=== PATIENT | male | born 1965 | race Caucasian/White ===

== ENCOUNTER 2022-05-02 20:26 | Inpatient (IN) | payer OTHER, SELFPAY ==
[2022-05-02] VITALS (19 sets, daily range): BP systolic 102–128; BP diastolic 50–74; PULSE 85–107; RESP 18–32; TEMP 36.6–38.8; O2SAT 89–95
--- NOTE | 2022-05-02 21:15 | DI.RAD_ITS ---
Exam(s) XR PORTABLE CHEST AP EXAM: XR PORTABLE CHEST AP CLINICAL HISTORY: cough TECHNIQUE: 2D digital imaging was performed of the chest. One image was obtained. An AP view was ob tained. COMPARISON: No exams were available for comparison FINDINGS: MEDIASTINUM: Normal. HEART: Normal. PULMONARY VASCULATURE: Normal. LUNGS: There is a large area of consolidation in the left upper lung zone. Air bronchograms are seen . The findings are most suspicious for pneumonia. PLEURAL SPACE: No pleural effusion or pneumothorax. BONE:Within normal limits for the patient's age. OTHER FINDINGS:Normal. IMPRESSION: Patchy consolidation throughout the left upper lung zone suggestive of pneumonia. Underlying patholo gy cannot be excluded. A chest x-ray following treatment is recommended to document complete resolut ion and to exclude underlying abnormality. DATA REPOSITORY: RADIATION DOSE DELIVERED:
--- NOTE | 2022-05-02 21:18 | W.ED.GENAD ---
Discharge Plan Disposition Patient Disposition: [facility] INPATIENT Condition: Serious Discharge Details Clinical Impression: CAP (community acquired pneumonia), Hypoxia Primary Care Provider: Maxwell Viera ED Provider: Orlin Graves Home Meds and New Rx's Prescriptions: No Action metoprolol tartrate 100 MG tablet 100 mg PO DAILY amlodipine 10 MG tablet 10 mg PO DAILY glimepiride [Amaryl] 4 MG tablet 2 mg PO DAILY metformin 500 MG tablet extended release 24 hr 500 mg PO BID atorvastatin 40 mg Tablet 40 mg PO DAILY azithromycin 250 mg Tablet 250 mg PO DAILY Rx Instructions: start on day 2 of therapy chlorthalidone 25 mg Tablet 25 mg PO DAILY benzonatate 100 mg capsule 100 cap PO TID PRN cefdinir 300 mg Capsule 300 mg PO BID losartan 100 mg Tablet 100 mg PO DAILY Farxiga 5 mg Tablet 5 mg PO DAILY Medical Decision Making 57 yo male with hx of t2dm, hld, htn, comes in with chief complaint of cough since 04/22 that is now productive and also several days of fevers and chills. HAs not had a covid test since symptoms started. He went to [facility] yesterday and had labs and an xrayand was placed on azithromycin, cefdinir and despite this continues to feel unwell so came here. He arrives with room air saturation of 91% and febrile to 38.8, normal BP. He is speaking in full sentences and appears fatigued. He has rhonchi in both lower lobes, no lower extremity swelling or calf tenderness, no abdominal tenderness. His symptoms are concerning for pneumonia vs covid vs influenza, will obtain cbc, cmp, cultures, lactate, procalcitonin and chest xray along with fluvid test. patient's xray on my read shows bilateral infiltrates worse on the left, cmp and fluvid still pending but is vaccinated and boostered so doubt covid as cause of this. Ceftriaxone ordered, is on 2L N[place].Discussed with hospitalist who accepts for admission Differential Diagnosis Differential Diagnosis: pneumonia, covid, influenza Imaging Data Radiologic Study: Attestation: I personally reviewed and interpreted this imaging study as follows: Imaging: X-Ray Radiologist's impression: IMPRESSION: Extensive patchy consolidation throughout the left upper lung zone with an appearance suggesting pneumonia. That said, underlying pathology is not excluded. Posttreatment follow-up is recommended to document resolution Lab Data Lab results reviewed: Yes I reviewed the patient's lab results. HPI General Mode of arrival: ambulatory. Date/Time Provider Initiated Documentation: 05/02/22 20:26. Limitations to Documentation: no limitations. Information obtained by: patient. History of Present Illness 57 year old M presents to the emergency department with the chief complaint of cough, described as moderate, Patient started experiencing this day(s) (10) and it has been constant. No relieving factors improve symptom(s), No exacerbating factors reported . Patient notes fever/chills. Patient did receive the following treatments prior to arrival, none Related Data Home Medications Medication Instructions Recorded Confirmed amlodipine 10 mg tablet 10 mg PO DAILY 05/21/13 05/02/22 glimepiride 4 mg tablet (Amaryl) 2 mg PO DAILY 05/21/13 05/02/22 metformin 500 mg tablet,extended 500 mg PO BID 05/21/13 05/02/22 release 24 hr metoprolol tartrate 100 mg tablet 100 mg PO DAILY 05/21/13 05/02/22 atorvastatin 40 mg tablet 40 mg PO DAILY 05/02/22 05/02/22 azithromycin 250 mg tablet 250 mg PO DAILY 05/02/22 05/02/22 benzonatate 100 mg capsule 100 cap PO TID PRN 05/02/22 05/02/22 cefdinir 300 mg capsule 300 mg PO BID 05/02/22 05/02/22 chlorthalidone 25 mg tablet 25 mg PO DAILY 05/02/22 05/02/22 dapagliflozin 5 mg tablet (Farxiga) 5 mg PO DAILY 05/02/22 05/02/22 losartan 100 mg tablet 100 mg PO DAILY 05/02/22 05/02/22 Allergies Allergy/AdvReac Type Severity Reaction Status Date / Time morphine Allergy Mild itchy Unverified 05/02/22 21:00 General Stated Complaint: RespSymp SATINDER: 3 Review of Systems All systems reviewed & are unremarkable except as noted in HPI and below Constitutional Constitutional: Reports chills and Reports fever(s) ENT Ears, Nose, Mouth, and Throat: Denies change in voice Cardiovascular Cardiovascular: Denies chest pain Respiratory Respiratory: Denies cough Gastrointestinal Gastrointestinal: Denies abdominal pain, Denies nausea and Denies vomiting Genitourinary Genitourinary: Denies dysuria Musculoskeletal Musculoskeletal: Denies joint swelling Integumentary/Breasts Skin/Breast: Denies rash Neurologic Neurologic: Denies localized weakness PFSH All Active Problems (Updated 05/02/22 @ 22:15 by Orlin Graves MD) CAP (community acquired pneumonia) (Acute) Hypoxia (Acute) Social History Smoking/Tobacco Use Status: Never Smoking risk assessment performed?: Yes Alcohol Intake: never Drug use: Never Substance use type: does not use Course Vital Signs Vital signs: Vital Signs Temperature 38.8 C H 05/02/22 20:57 Pulse 107 H 05/02/22 20:57 Respiratory Rate 22 05/02/22 20:57 Blood Pressure 128/74 05/02/22 20:57 Pulse Oximetry 91 L 05/02/22 20:57 Temperature 38.8 C H 05/02/22 20:57 Temperature Source Oral 05/02/22 20:57 Pulse 107 H 05/02/22 20:57 Respiratory Rate 22 05/02/22 20:57 Respiratory Effort Non-Labored 05/02/22 21:05 Blood Pressure 128/74 05/02/22 20:57 Blood Pressure Position Sitting 05/02/22 20:57 Pulse Oximetry 91 L 05/02/22 20:57 Oxygen Delivery Method Room Air 05/02/22 20:57 Oxygen Flow Rate 0 05/02/22 20:57 Pain Level 6 05/02/22 20:57 Lab/Test Results Lab/Test Results: 05/02/22 21:02 Blood Blood Culture - Pending 05/02/22 21:02 Blood Blood Culture - Pending
[2022-05-02] MEDS: Acetaminophen 500 MG TAB 1000 MG PO (21:25)
[2022-05-02] MEDS: Normal Saline 1,000 ML 1000 ML IV (21:30)
[2022-05-02 21:41] LABS: Abs Immature Grans 0.05 10^3/uL (0.0-0.06); Absolute Basophil Count 0.03 10^3/uL (0.0-0.2); Absolute Eosinophil Count 0.05 10^3/uL (0.0-0.7); Absolute Monocyte Count 0.93 10^3/uL (0.1-0.8); Absolute Neutrophil Count 8.09 10^3/uL (1.2-6.7); Basophils % 0.3; Eosinophils % 0.5; HGB 12.4 g/dL (13.5-17.5); Immature Grans % 0.5; Lymphocytes % 3.2; MCH 30.7 pg (27.0-33.0); MCHC 35.4 % (32.0-36.0); MCV 87 fL (80-95); MPV 8.7 fL (8.0-11.0); Monocytes % 9.8; Neutrophils % 85.7; Platelet Count 190 10^3/uL (130-400); RBC 4.04 10^6/uL (4.36-5.78); RDW 13.2 % (11.8-14.1); RDW-SD 42.5 fL; WBC 9.45 10^3/uL (4.4-10.8)
[2022-05-02 21:42] LABS: BE (Venous) 2 mmol/L (-2-3); HCO3 (Venous) 26 mmol/L (23-28); O2 Sat (Venous) 79 %; TCO2 (Venous) 23 mmol/L (24-29); pCO2 (Venous) 39 mmHg (41-51); pH (Venous) 7.43 (7.31-7.41); pO2 (Venous) 42 mmHg
[2022-05-02 21:43] LABS: Lactate 1.2 mmol/L (0.6-1.4)
[2022-05-02 22:21] LABS: COVID-19 PCR Negative (Negative); Influenza A PCR Negative (Negative); Influenza B PCR Negative (Negative); RSV PCR Negative (Negative)
[2022-05-02 22:28] LABS: Source Nasopharynx
--- NOTE | 2022-05-02 22:30 | W.PM.HP.N ---
Date of service: 05/02/22 Time of Service: 22:30 Assessment and Plan Assessment and plan (1) CAP (community acquired pneumonia): Status: Acute Assessment and plan: Extensive left sided pneumonia. Rocephin and doxycycline initiated. IS and acapella. Urine antigens for legionella and strep pneumo sent. Even though most indications are that this is an infectious process, JERILYN level sent to investigate the possibility of sarcoidosis. (2) Hypoxia: Status: Acute Assessment and plan: No known underlying pulmonary processes (asthma, COPD). Nonsmoker. Mildly hypoxic on arrival. Supplemental O2 as needed. (3) Diabetes mellitus type 2, noninsulin dependent: Status: Acute Assessment and plan: Cont home Farxiga and glimepiride. Hold metformin in event he could require IV contrast during the course of this stay. Diabetic diet. Monitor glucose and utilize SS correction insulin dosing if necessary. (4) Essential hypertension: Status: Acute Assessment and plan: Cont amlodipine, chlorthalidone, losartan and metoprolol. Pressures have been low normal to normal since admission. (5) Hyperlipidemia: Status: Acute Assessment and plan: Cont atorvastatin 40mg daily. (6) DVT prophylaxis: Status: Acute Assessment and plan: Enoxaparin. Also encourage ambulation. History of Present Illness History of Present Illness Chief Complaint: Fever and cough Narrative: This is a 57 yo male with a PMH of HTN, DM2, HLD. He presented to the ED with an ongoing cough since 04/22/22. The cough has gradually become productive and he has developed fevers and chills. He presented to [facility] the day before this admission where he had labs and a CXR taken. He was discharged on cefdinir and azithromycin. Upon arrival at [facility] his temperature was 38.8 and RA O2 saturation was 91%. Covid and Fluvid were negative. WBC count normal. CXR showed: Extensive patchy consolidation throughout the left upper lung zone with an appearance suggesting pneumonia. That said, underlying pathology is not excluded. Posttreatment follow-up is recommended to document resolution. Ceftriaxone and oral doxycycline initiated. Other labaratory findings; mild anemia with a Hgb of 12.4. Mildly low Na of 133. Low K of 3.3. Creatinine 1.0. Procalcitonin elevated at 0.2. Review of Systems All systems reviewed & are unremarkable except as noted in HPI and below PFSH All Active Problems (Updated 05/03/22 @ 05:09 by Clarence Morales MD) DVT prophylaxis (Acute) Hyperlipidemia (Acute) Essential hypertension (Acute) Diabetes mellitus type 2, noninsulin dependent (Acute) CAP (community acquired pneumonia) (Acute) Hypoxia (Acute) Social History Smoking/Tobacco Use Status: Never Smoking risk assessment performed?: Yes Alcohol Intake: never Drug use: Never Substance use type: does not use Meds Allergies and Home Medications Allergies Allergy/AdvReac Type Severity Reaction Status Date / Time morphine Allergy Mild itchy Unverified 05/02/22 21:00 Home Medications Medication Instructions Recorded Confirmed Type amlodipine 10 mg tablet 10 mg PO DAILY 05/21/13 05/02/22 History glimepiride 4 mg tablet (Amaryl) 2 mg PO DAILY 05/21/13 05/02/22 History metformin 500 mg tablet,extended 500 mg PO BID 05/21/13 05/02/22 History release 24 hr metoprolol tartrate 100 mg tablet 100 mg PO DAILY 05/21/13 05/02/22 History atorvastatin 40 mg tablet 40 mg PO DAILY 05/02/22 05/02/22 History azithromycin 250 mg tablet 250 mg PO DAILY 05/02/22 05/02/22 History benzonatate 100 mg capsule 100 cap PO TID PRN 05/02/22 05/02/22 History cefdinir 300 mg capsule 300 mg PO BID 05/02/22 05/02/22 History chlorthalidone 25 mg tablet 25 mg PO DAILY 05/02/22 05/02/22 History dapagliflozin 5 mg tablet (Farxiga) 5 mg PO DAILY 05/02/22 05/02/22 History losartan 100 mg tablet 100 mg PO DAILY 05/02/22 05/02/22 History Exam Narrative Exam Narrative: Sitting in chair. Intermittent coughing paroxysms. Const General: cooperative Nutritional Appearance: overweight Orientation: alert and oriented x3 Eyes General: appearance normal, both eyes and all related structures Sclera: sclerae normal Resp Effort & Inspection: normal respiratory effort Auscultation: rhonchi Cardio Rate: regular rate Rhythm: regular rhythm Heart Sounds: S1 normal and S2 normal GI Palpation: soft and nontender Skin General skin exam: no rashes or lesions noted Extrem General: no pedal edema and no calf tenderness Psych Appearance: grossly normal Mental Status: mental status grossly normal Speech and Movement: speech and movement normal Affect: normal affect Results Labs Result diagrams: 05/02/22 21:30 05/02/22 21:30 Labs: Laboratory Results - last 24 hr 05/02/22 05/02/22 05/02/22 21:30 21:30 21:30 WBC 9.45 RBC 4.04 L Hgb 12.4 L Hct 35.0 L MCV 87 MCH 30.7 MCHC 35.4 RDW 13.2 Plt Count 190 MPV 8.7 Immature Gran % 0.5 Neutrophils % 85.7 Lymphocytes % 3.2 Monocytes % 9.8 Eosinophils % 0.5 Basophils % 0.3 Nucleated RBC % 0.0 Absolute Neutrophils 8.09 H Absolute Lymphocytes 0.30 L Absolute Monocytes 0.93 H Absolute Eosinophils 0.05 Absolute Basophils 0.03 VBG pH 7.43 H VBG pCO2 39 L VBG pO2 42 VBG HCO3 26 VBG Total CO2 23 L VBG O2 Saturation 79 VBG Base Excess 2 VBG Lactate 1.2 COVID-19 Source SARS-CoV-2 (PCR) Influenza Type A (PCR) Influenza Type B (PCR) RSV (PCR) 05/02/22 21:35 WBC RBC Hgb Hct MCV MCH MCHC RDW Plt Count MPV Immature Gran % Neutrophils % Lymphocytes % Monocytes % Eosinophils % Basophils % Nucleated RBC % Absolute Neutrophils Absolute Lymphocytes Absolute Monocytes Absolute Eosinophils Absolute Basophils VBG pH VBG pCO2 VBG pO2 VBG HCO3 VBG Total CO2 VBG O2 Saturation VBG Base Excess VBG Lactate COVID-19 Source Nasopharynx SARS-CoV-2 (PCR) Negative Influenza Type A (PCR) Negative Influenza Type B (PCR) Negative RSV (PCR) Negative Last Vital Signs Temp 37.7 C H 05/02/22 22:02 Pulse 95 H 05/02/22 22:02 Resp 18 05/02/22 22:02 BP 106/50 L 05/02/22 22:02 Pulse Ox 95 05/02/22 22:02
--- NOTE | 2022-05-02 22:35 | DI.VRAD_ITS ---
Addendum created by Angel Vasquez MD on 05/02/2022 10:36:10 PM EDT: This case was discussed personally with Orlin Melo at 10:35 PM EDT on 05/02/2022. Initial report created on 05/02/2022 10:33:38 PM EDT: PROCEDURE INFORMATION: Exam: XR Chest Exam date and time: 05/02/2022 9:43 PM Age: 57 years old Clinical indication: Cough TECHNIQUE: Imaging protocol: Radiologic exam of the chest. Views: 1 view. COMPARISON: No relevant prior studies available. FINDINGS: Lungs: There is extensive patchy consolidation throughout the left mid-upper lung zone. Pleural spaces: No pleural effusion or pneumothorax is demonstrated. Heart/Mediastinum: Heart size is normal. Cardiac monitoring leads overlie the exam. Bones/joints: The visualized bony structures appear grossly intact. IMPRESSION: Extensive patchy consolidation throughout the left upper lung zone with an appearance suggesting pneumonia. That said, underlying pathology is not excluded. Posttreatment follow-up is recommended to document resolution. Dictated and Authenticated by: Angel Vasquez MD. Ordering:SIRI Ordaz MD
[2022-05-02] MEDS: cefTRIAXone 2 GM/50 ML BAG IVPB (22:37)
[2022-05-02 22:41] LABS: Procalcitonin 0.2 ng/mL
[2022-05-02 23:11] LABS: ALT 26 U/L (16-63); AST 17 U/L (15-37); Albumin 2.6 g/dL (3.4-5.0); Alkaline Phosphatase 71 U/L (46-116); Anion Gap 11.8 mmol/L (3-11); BUN 25 mg/dL (7-18); Bilirubin, Total 1.5 mg/dL (0.2-1.0); CO2 25.2 mmol/L (21.0-32.0); Calcium 8.9 mg/dL (8.5-10.1); Chloride 96 mmol/L (98-107); Glucose 146 mg/dL (74-106); Magnesium 1.9 mg/dL (1.8-2.4); Potassium 3.3 mmol/L (3.5-5.1); Sodium 133 mmol/L (136-145); Total Protein 6.8 g/dL (6.4-8.2)
[2022-05-03] VITALS (8 sets, daily range): BP systolic 110–130; BP diastolic 69–80; PULSE 94–107; RESP 18–25; TEMP 37.9–39.4; O2SAT 93–97
[2022-05-03] MEDS: Potassium Chloride 20 MEQ TABCR PO ×3 (00:25→19:38)
[2022-05-03] MEDS: guaiFENesin/CODEINE PHOSPHATE 10 ML CUP PO ×3 (01:45→20:42)
[2022-05-03] MEDS: Acetaminophen 325 MG TAB PO ×4 (03:03→19:37)
[2022-05-03] MEDS: Normal Saline Flush 10 ML SYR IVP ×2 (06:05→11:24)
[2022-05-03] MEDS: Doxycycline Hyclate 100 MG CAP PO ×2 (06:05→17:08)
[2022-05-03] MEDS: Glimepiride 2 MG TAB PO (07:47)
[2022-05-03] MEDS: Losartan 50 MG TAB 100 MG PO (07:48)
[2022-05-03] MEDS: Chlorthalidone 25 MG TAB PO (07:48)
[2022-05-03] MEDS: amLODIPine 10 MG TAB PO (07:48)
[2022-05-03] MEDS: Atorvastatin 40 MG TAB PO (07:48)
[2022-05-03] MEDS: Enoxaparin 40 MG/0.4 ML SYR SC (07:49)
[2022-05-03] MEDS: Insulin Aspart 300 UNITS/3 ML PEN SC ×4 (08:25→22:11)
[2022-05-03] MEDS: Metoprolol CR 100 MG TABCR PO (08:34)
[2022-05-03] MEDS: Benzonatate 200 MG CAP PO ×3 (08:48→19:37)
[2022-05-03 08:58] LABS: Abs Immature Grans 0.07 10^3/uL (0.0-0.06); Absolute Basophil Count 0.02 10^3/uL (0.0-0.2); Absolute Lymphocyte Count 0.43 10^3/uL (1.2-3.4); Absolute Monocyte Count 1.22 10^3/uL (0.1-0.8); Absolute Neutrophil Count 8.44 10^3/uL (1.2-6.7); Basophils % 0.2; HGB 9.8 g/dL (13.5-17.5); Immature Grans % 0.7; Lymphocytes % 4.2; MCH 30.1 pg (27.0-33.0); MCHC 33.8 % (32.0-36.0); MCV 89 fL (80-95); Monocytes % 11.9; Platelet Count 204 10^3/uL (130-400); RBC 3.26 10^6/uL (4.36-5.78); RDW 13.3 % (11.8-14.1); RDW-SD 43.7 fL; WBC 10.28 10^3/uL (4.4-10.8)
[2022-05-03 09:09] LABS: BUN 22 mg/dL (7-18); Calcium 8.5 mg/dL (8.5-10.1); Chloride 96 mmol/L (98-107); Glucose 165 mg/dL (74-106); Magnesium 1.9 mg/dL (1.8-2.4); Potassium 3.4 mmol/L (3.5-5.1); Sodium 134 mmol/L (136-145)
[2022-05-03 09:15] LABS: ALT 25 U/L (16-63); AST 19 U/L (15-37); Albumin 2.5 g/dL (3.4-5.0); Alkaline Phosphatase 69 U/L (46-116); Bilirubin, Direct 0.6 mg/dL (0.0-0.2); Bilirubin, Total 1.3 mg/dL (0.2-1.0); Total Protein 6.4 g/dL (6.4-8.2)
[2022-05-03] MEDS: POTASSIUM CHLORIDE 20 MEQ/100 ML BAG 50 MEQ IVPB ×2 (11:24→14:12)
--- NOTE | 2022-05-03 11:59 | W.PM.PROGNOT ---
Date of Service Date of service: 05/03/22 Time of Service: 11:59 Assessment and Plan Assessment and plan (1) Sepsis: Status: Acute Assessment and plan: Due to PNA, present on admission. Blood cultures pending. Still febrile this am. W/ h/o DM, I am concerned we may not be covering pseudomonas - will change abx to doxy + cefepime. Await blood and sputum culture results. Anaplasma can also present with respiratory findings as well as electrolyte and LFT abnormalities - await tick panel. Continue doxycycline. Trend CRP, procalcitonin. (2) CAP (community acquired pneumonia): Status: Acute Assessment and plan: As above. Schedule mucinex. Continue prn guaifenesin + codeine; tessalon. Abx as above. Encourage pulmonary toilet. (3) Hypoxia: Status: Resolved Assessment and plan: Resolved at rest. Would benefit from O2 monitoring when ambulating. (4) Pleuritic chest pain: Status: Acute Assessment and plan: Start prn toradol. Antitussives. (5) Acute anemia: Status: Acute Assessment and plan: Check H/H this afternoon. Check hematest. Hold lovenox. Consider hemolysis. (6) Diabetes mellitus type 2, noninsulin dependent: Status: Chronic Assessment and plan: Continue current therapy (7) Hyperbilirubinemia: Status: Acute Assessment and plan: In setting of acute illness. ?Gilbert. Consider tick illness. (8) Hypokalemia: Status: Acute Assessment and plan: Replete. recheck in am. (9) Hyponatremia: Status: Acute Assessment and plan: Hold diuretics. Recheck in am. (10) DVT prophylaxis: Status: Acute Assessment and plan: Hold enoxaparin due to anemia. Consider SCDs if confirmed to have active bleeding. (11) Discharge planning issues: Status: Acute Assessment and plan: Full code. Continues to require hospitalization. Subjective Subjective Interval history since last seen: Mr Mcarthur states he thinks he is feeling a little bit better today - cough is better. He does have L-sided chest pain with coughing and pain throughout his whole chest on inspiration. He is not short of breath unless coughing. Cough has been productive of yellow sputum. He denies dizziness, nausea. He has not had an appetite. He did not sleep well because of cough. Exam Narrative Exam Narrative: General: Ill appearing middle-aged male who is coughing frequently, on RA, A&Ox3 HEENT: EOMI, MMM Heart: RRR, no m/r/g Lungs: Diminished breath sounds B Abdomen: soft, nontender, nondistended Extremities: no edema BLEs Objective Last Vital Signs Temp 38.3 C H 05/03/22 07:30 Pulse 96 H 05/03/22 07:30 Resp 20 05/03/22 07:30 BP 130/80 05/03/22 07:30 Pulse Ox 97 05/03/22 07:30 Laboratory Results - last 24 hr 05/02/22 05/02/22 05/02/22 21:30 21:30 21:30 WBC 9.45 RBC 4.04 L Hgb 12.4 L Hct 35.0 L MCV 87 MCH 30.7 MCHC 35.4 RDW 13.2 Plt Count 190 MPV 8.7 Immature Gran % 0.5 Neutrophils % 85.7 Lymphocytes % 3.2 Monocytes % 9.8 Eosinophils % 0.5 Basophils % 0.3 Nucleated RBC % 0.0 Absolute Neutrophils 8.09 H Absolute Lymphocytes 0.30 L Absolute Monocytes 0.93 H Absolute Eosinophils 0.05 Absolute Basophils 0.03 VBG pH VBG pCO2 VBG pO2 VBG HCO3 VBG Total CO2 VBG O2 Saturation VBG Base Excess VBG Lactate 1.2 Sodium 133 L Potassium 3.3 L Chloride 96 L Carbon Dioxide 25.2 Anion Gap 11.8 H BUN 25 H Creatinine 1.0 Estimated GFR/1.73 m2 >= 60.00 Glucose 146 H Calcium 8.9 Magnesium 1.9 Total Bilirubin 1.5 H Conjugated Bilirubin AST 17 ALT 26 Alkaline Phosphatase 71 Total Protein 6.8 Albumin 2.6 L Procalcitonin 0.2 COVID-19 Source SARS-CoV-2 (PCR) Influenza Type A (PCR) Influenza Type B (PCR) RSV (PCR) 05/02/22 05/02/22 05/03/22 21:30 21:35 08:18 WBC RBC Hgb Hct MCV MCH MCHC RDW Plt Count MPV Immature Gran % Neutrophils % Lymphocytes % Monocytes % Eosinophils % Basophils % Nucleated RBC % Absolute Neutrophils Absolute Lymphocytes Absolute Monocytes Absolute Eosinophils Absolute Basophils VBG pH 7.43 H VBG pCO2 39 L VBG pO2 42 VBG HCO3 26 VBG Total CO2 23 L VBG O2 Saturation 79 VBG Base Excess 2 VBG Lactate Sodium 134 L Potassium 3.4 L Chloride 96 L Carbon Dioxide 28.0 Anion Gap 10.0 BUN 22 H Creatinine 1.0 Estimated GFR/1.73 m2 >= 60.00 Glucose 165 H Calcium 8.5 Magnesium 1.9 Total Bilirubin Conjugated Bilirubin AST ALT Alkaline Phosphatase Total Protein Albumin Procalcitonin COVID-19 Source Nasopharynx SARS-CoV-2 (PCR) Negative Influenza Type A (PCR) Negative Influenza Type B (PCR) Negative RSV (PCR) Negative 05/03/22 05/03/22 08:18 08:18 WBC 10.28 RBC 3.26 L Hgb 9.8 L D Hct 29.0 L MCV 89 MCH 30.1 MCHC 33.8 RDW 13.3 Plt Count 204 MPV 9.0 Immature Gran % 0.7 Neutrophils % 82.0 Lymphocytes % 4.2 Monocytes % 11.9 Eosinophils % 1.0 Basophils % 0.2 Nucleated RBC % 0.0 Absolute Neutrophils 8.44 H Absolute Lymphocytes 0.43 L Absolute Monocytes 1.22 H Absolute Eosinophils 0.10 Absolute Basophils 0.02 VBG pH VBG pCO2 VBG pO2 VBG HCO3 VBG Total CO2 VBG O2 Saturation VBG Base Excess VBG Lactate Sodium Potassium Chloride Carbon Dioxide Anion Gap BUN Creatinine Estimated GFR/1.73 m2 Glucose Calcium Magnesium Total Bilirubin 1.3 H Conjugated Bilirubin 0.6 H AST 19 ALT 25 Alkaline Phosphatase 69 Total Protein 6.4 Albumin 2.5 L Procalcitonin COVID-19 Source SARS-CoV-2 (PCR) Influenza Type A (PCR) Influenza Type B (PCR) RSV (PCR) PAWSS Have you Been Recently Intoxicated or Drunk Within the Last 30 days?: No Have you Ever Experienced Previous Episodes of Alcohol Withdrawal?: No Have you ever Experienced Withdrawal Seizures?: No Have you ever Experienced Delirium Tremens(DT)s?: No Have you ever undergone Alcohol Rehabilitation Treatment (i.e, inpt ot outpatient treatment programs)?: No Have you ever Experienced Blackouts?: No Have you ever Combined Alcohol with other Downers within the last 90 days?: No Have you ever Combined Alcohol with any other Substance of Abuse during the last 90 days?: No Positive Blood Alcohol level on Presentation? [PCS.BAL]: No Evidence of Increased Autonomic Activity (i.e. HR>120, tremor, sweating, agitation, nausea)?: No Result: 0
--- NOTE | 2022-05-03 12:49 | INITIAL_ITS ---
- If Service Date Differs Date of service: 05/03/22 Time of Service: 12:49 Care Management Initial Assess REASON FOR HOSPITALIZATION:: Pneumonia PAST MEDICAL HISTORY/PAST SURGICAL HISTORY:: DVT prophylaxis (Acute). Hyperlipidemia (Acute). Essential hypertension (Acute). Diabetes mellitus type 2, noninsulin dependent (Acute). CAP (community acquired pneumonia) (Acute). Hypoxia (Acute) PREVIOUS FUNCTIONAL STATUS/SOCIAL/FAMILY SUPPORTS:: Resides in [place] with , Odalis, son Cristiano resides locally as well. Independent at baseline in community. CURRENT FUNCTIONAL STATUS:: Deidre remains inpatient at this time, CM continues to follow. ADVANCE DIRECTIVES:: On file; Odalis as agent. Has patient been provided with info about the portal/API?: Yes Did the patient sign up for the portal?: No CODE STATUS:: Full Code INSURANCE COVERAGE / FINANCIAL ISSUES:: [employer] CURRENT HOME/COMMUNITY SERVICES/EQUIPMENT:: [employer] PRIMARY CARE PHYSICIAN:: Maxwell Viera POTENTIAL DISCHARGE NEEDS:: Follow up appointments. PATIENT/FAMILY EDUCATION NEEDS:: Review discharge instructions, discuss Ask Me Three. ANTICIPATED BARRIERS TO DISCHARGE:: None identified. TRANSPORTATION:: Via private vehicle with . PLAN:: Deidre will return home when ready per MD. No additional services anticipated at this time. He will follow up with his PCP and plan of care as prescribed.
[2022-05-03 13:16] LABS: Bilirubin Negative (Negative); Blood Negative (Negative); Clarity Clear (Clear); Glucose 500 mg/dL (Negative); Ketones Trace mg/dL (Negative); Leukocyte Esterase Negative (Negative); Nitrite Negative (Negative); Specific Gravity 1.015 (1.005-1.025); pH 5.5 (5-8)
[2022-05-03 14:10] LABS: HCT 35.1 % (40.0-50.0)
[2022-05-03] MEDS: CEFEPIME 2 GM in Normal Saline 100 ML IVPB ×2 (15:53→22:04)
--- NOTE | 2022-05-03 16:37 | CHAPLAIN ---
Deidre was sitting up in bed, on his phone, when I visited. 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 Deidre said his suggested that he got sick because he's been wearing himself out. He acknowledged she might be right.
[2022-05-03] MEDS: guaiFENesin 600 MG TABCR PO (19:37)
[2022-05-03 20:09] LABS: Legionella Ag Detection Urine Negative (Negative)
[2022-05-03] MEDS: Ketorolac 15 MG/ML VIAL IVP (20:43)
[2022-05-04] VITALS (21 sets, daily range): BP systolic 99–146; BP diastolic 54–81; PULSE 92–120; RESP 2–26; TEMP 37.1–39.5; O2SAT 2–98
--- NOTE | 2022-05-04 | DI.CT_ITS ---
Exam(s) CT CHEST WO EXAM: CT CHEST WO CLINICAL HISTORY: pneumonia, persistent fever. TECHNIQUE: Imaging protocol: Axial computed tomography images were obtained and coronal and sagittal reformatted images were created and reviewed. COMPARISON: CR,XR XR PORTABLE CHEST AP from 05/02/2022 FINDINGS: Tracheobronchial tree: Patent where visualized. Pulmonary parenchyma: Multiple pulmonary nodules are present in both lungs. The largest on the right measures 3 x 2.3 cm. The largest discrete nodule on the left is seen in the lower lobe and measures 1.4 x 1.9 cm. There is confluent opacity in the left upper lobe with air bronchograms. A superimpo sed pneumonia should be considered. An underlying neoplastic process is suspected. No architectural distortion. Mediastinum and Ema: Enlarged lymph nodes are seen in the mediastinum. Some of the lymph loads are calcified suggesting prior granulomatous disease. The largest lymph node measures 2.0 x 1.9 cm. The esophagus is unremarkable. Thyroid gland: Unremarkable. Pleura: There is a small left pleural effusion. No right pleural effusion or pneumothorax is present . Heart: Mildly enlarged heart. Coronary artery calcifications are present. No pericardial effusion. Aorta: Thoracic aorta non-dilated. Mild atherosclerosis. Upper abdomen: Splenomegaly. Lymph nodes: No significant axillary or supraclavicular adenopathy. Soft tissues: Unremarkable. Bones:Within normal limits for the patient's age. There are old healed bilateral rib fractures. No suspicious lytic or sclerotic lesions are present. There is an old T12 compression deformity. IMPRESSION: 1. Multiple noncalcified pulmonary nodules. Large opacity involving the left upper lobe with air bro nchograms. With pulmonary nodules, metastatic disease to the lungs is of primary concern. The left upper lobe opacity may reflect a superimposed pneumonia. A mass or more pulmonary nodules in the lef t upper lobe cannot be excluded underlying the pneumonia. 2. Left pleural effusion. 3. Mediastinal adenopathy which may be reactive or metastatic. 4. Mild cardiomegaly. 5. Splenomegaly. RADIATION DOSE DELIVERED: 706.88mGy.cm Total DLP 706.88mGy.cm Total DLP DATA REPOSITORY: All CT scans at this facility are submitted to the National Radiology Data Registry (NRDR) Dose Index Registry (DIR) with the [employer] ([employer]). RADIATION OPTIMIZATION: All CT scans at this facility use at least one of these dose optimization te chniques: automated exposure control; mA and/or kV adjustment per patient size (includes targeted exa ms where dose is matched to clinical indication); or iterative reconstruction.
[2022-05-04] MEDS: guaiFENesin/CODEINE PHOSPHATE 10 ML CUP PO ×3 (03:10→21:31)
[2022-05-04] MEDS: ACETAMINOPHEN 1,000 MG/100 ML BTL 400 MG IVPB ×3 (03:11→17:57)
[2022-05-04] MEDS: Normal Saline Flush 10 ML SYR IVP ×6 (03:15→17:57)
[2022-05-04] MEDS: CEFEPIME 2 GM in Normal Saline 100 ML IVPB ×3 (06:34→22:43)
[2022-05-04] MEDS: Doxycycline Hyclate 100 MG CAP PO ×2 (06:35→18:12)
[2022-05-04 07:02] LABS: Abs Immature Grans 0.07 10^3/uL (0.0-0.06); Absolute Basophil Count 0.04 10^3/uL (0.0-0.2); Absolute Lymphocyte Count 0.32 10^3/uL (1.2-3.4); Absolute Neutrophil Count 7.61 10^3/uL (1.2-6.7); Basophils % 0.4; Eosinophils % 1.1; HCT 32.5 % (40.0-50.0); HGB 11.3 g/dL (13.5-17.5); Immature Grans % 0.7; Lymphocytes % 3.4; MCH 30.4 pg (27.0-33.0); MCHC 34.8 % (32.0-36.0); MCV 87 fL (80-95); MPV 9.2 fL (8.0-11.0); Monocytes % 13.8; Neutrophils % 80.6; Platelet Count 203 10^3/uL (130-400); RBC 3.72 10^6/uL (4.36-5.78); RDW 13.4 % (11.8-14.1); RDW-SD 43.6 fL; WBC 9.44 10^3/uL (4.4-10.8)
[2022-05-04 07:20] LABS: ALT 25 U/L (16-63); AST 19 U/L (15-37); Albumin 2.2 g/dL (3.4-5.0); Alkaline Phosphatase 67 U/L (46-116); Anion Gap 10.5 mmol/L (3-11); BUN 25 mg/dL (7-18); Bilirubin, Direct 0.6 mg/dL (0.0-0.2); Bilirubin, Total 1.1 mg/dL (0.2-1.0); CO2 25.5 mmol/L (21.0-32.0); CREATININE 0.9 mg/dL (0.70-1.30); Calcium 8.5 mg/dL (8.5-10.1); Chloride 99 mmol/L (98-107); Glucose 177 mg/dL (74-106); Magnesium 1.9 mg/dL (1.8-2.4); Potassium 3.6 mmol/L (3.5-5.1); Sodium 135 mmol/L (136-145); Total Protein 6.2 g/dL (6.4-8.2)
[2022-05-04] MEDS: Ketorolac 15 MG/ML VIAL IVP (07:29)
[2022-05-04] MEDS: Potassium Chloride 20 MEQ TABCR PO (07:45)
[2022-05-04] MEDS: Glimepiride 2 MG TAB PO (07:45)
[2022-05-04] MEDS: amLODIPine 10 MG TAB PO (07:45)
[2022-05-04] MEDS: guaiFENesin 600 MG TABCR PO ×2 (07:45→21:31)
[2022-05-04] MEDS: Benzonatate 200 MG CAP PO ×3 (07:45→21:31)
[2022-05-04] MEDS: Metoprolol CR 100 MG TABCR PO (07:45)
[2022-05-04] MEDS: Atorvastatin 40 MG TAB PO (07:45)
[2022-05-04] MEDS: Losartan 50 MG TAB 100 MG PO (07:46)
[2022-05-04] MEDS: Insulin Aspart 300 UNITS/3 ML PEN SC ×4 (07:46→22:34)
[2022-05-04 08:14] LABS: Lab Add On Test DONE
[2022-05-04 08:43] LABS: C-Reactive Protein > 25.00 mg/dL (0.0-0.3)
--- NOTE | 2022-05-04 11:42 | PUCON_ITS ---
General Date Of Service Date of service: 05/04/22 Time of Service: 11:45 Reason for Consult: Non-resolving pneumonia Assessment and Plan Assessment and plan (1) Sepsis: Status: Acute (2) CAP (community acquired pneumonia): Status: Acute (3) Hypoxia: Status: Acute Assessment and plan: This is a 57 yo otherwise healthy man admitted for a multilobar pneumonia. He has been on IV antibiotics for 3 days without significant improvement. He has had a sputum culture but this returned as normal bryn. The pneumonia is si gnificantly and most severe in the [place], but is multilobar. He has a small effusion on the left, but it is not large enough to consider tapping. He is on brought spectrum antibiotics but would add linezolid to cover potential MRSA until his MRSA nares returns. I will screen for fungal infections with a Fungitell, however clinically and by radiology, this appears to be bacterial. He does have significant lymphopenia and has not mounted an immune response to this pneumonia in way of a white count, so I would test him for HIV. Walking and Acapella will help him clear more mucus. If he is still not well by Saturday, we will discuss bronchoscopy to get a definitive answer and to try and isolate a bu g. His chest CT read mentions malignancy, however as he is a life long non smoker his lung cancer risk is very low. My impression of his film is that this is a pneumonia. He should have a 3 month follow up scan completed regardless, to ensure resolution of all of the infiltrates. Multilobar Pneumonia - continue cefepime and doxy - start linezolid - repeat sputum culture - recommend testing for HIV - will add a Fungitell - f/u MRSA nares - f/u strep pneumo urine antigen - blood cultures - NGTD - agree with Acapella and IS - agree with prn albuterol nebs History of Present Illness Narrative: This is a 57 yo man who is a non-smoker, non-alcoholic who has been feeling ill for a couple weeks. He was admitted a few days ago found to have a pneumonia. He has been on antibiotics, initially ceftriaxone and doxy. This did not improve his symptoms or signs and so his antibiotics were broadened to cefepime and doxy. He is very exhausted and still does not feel as though he is improving. He has never had a pneumonia this bad previously, but has had pneumonia once previously. He continues to have fevers and yellow copious secretions. I was consulted for the unresolving pneumonia. He tells me he is a non smoker and non alcoholic. He does have some exposure to concrete dust, but nothing else he can think of. He has some pain related to coughing. His cough is continuous and severe. He is exhausted from not sleeping well in days. He continues to cough out copious sputum. Review of Systems All systems reviewed & are unremarkable except as noted in HPI and below PFSH All Active Problems (Updated 05/04/22 @ 12:44 by Paris Flores MD) Hyponatremia (Acute) Hyperbilirubinemia (Acute) Acute anemia (Acute) Discharge planning issues (Acute) Pleuritic chest pain (Acute) Sepsis (Acute) DVT prophylaxis (Acute) Hyperlipidemia (Acute) Essential hypertension (Acute) Diabetes mellitus type 2, noninsulin dependent (Chronic) CAP (community acquired pneumonia) (Acute) Hypoxia (Acute) Social History Smoking/Tobacco Use Status: Never Smoking risk assessment performed?: Yes Alcohol Intake: never Drug use: Never Substance use type: does not use Visit Medication and Allergies Active Medications Generic Name Dose Route Start Last Admin Trade Name Freq PRN Reason Stop Dose Admin Amlodipine Besylate 10 mg 05/03/22 08:30 05/04/22 07:45 Amlodipine 10 Mg Tab PO 10 mg DAILY RAJENDRA Administration Atorvastatin Calcium 40 mg 05/03/22 08:30 05/04/22 07:45 Atorvastatin 40 Mg Tab PO 40 mg DAILY RAJENDRA Administration Benzonatate 200 mg 05/03/22 14:00 05/04/22 07:45 Benzonatate 200 Mg Cap PO 200 mg TID RAJENDRA Administration Chlorthalidone 25 mg 05/03/22 08:30 05/03/22 07:48 Chlorthalidone 25 Mg Tab PO 25 mg DAILY RAJENDRA Administration Dextrose 0 gm 05/02/22 22:26 Glucose 40% Oral Solution 15 Gm/37.5 Gm Tube PO DIRECTED PRN Dextrose/Water 0 gm 05/02/22 22:26 Dextrose 50%-Water 25 Gm/50 Ml Syr IVP DIRECTED PRN Dimethicone/Zinc Oxide 0 gm 05/02/22 22:19 Brady Protect Cream 142 Gm Tube TP PRN PRN Doxycycline Hyclate 100 mg 05/03/22 06:00 05/04/22 06:35 Doxycycline Hyclate 100 Mg Cap PO 100 mg Q12H RAJENDRA Administration Enoxaparin Sodium 40 mg 05/03/22 08:30 05/03/22 07:49 Enoxaparin 40 Mg/0.4 Ml Syr SC 40 mg Q24H RAJENDRA Administration Glimepiride 2 mg 05/03/22 08:00 05/04/22 07:45 Glimepiride 2 Mg Tab PO 2 mg DAILY@0800 RAJENDRA Administration Guaifenesin 600 mg 05/03/22 20:00 05/04/22 07:45 Guaifenesin 600 Mg Tabcr PO 600 mg BID RAJENDRA Administration Guaifenesin/Codeine Phosphate 10 ml 05/03/22 01:36 05/04/22 03:10 Guaifenesin/Codeine Phosphate 10 Ml Cup PO 10 ml Q4H PRN PRN Administration Cefepime HCl 2 gm/ Sodium 100 mls @ 200 mls/hr 05/03/22 14:00 05/04/22 08:09 Chloride IVPB Infused Q8H RAJENDRA Infusion Acetaminophen 1,000 mg in 100 mls @ 400 mls/hr 05/03/22 22:59 05/04/22 11:05 Ofirmev IVPB 400 mls/hr Q6H PRN PRN Administration IV Miscellaneous Supplies 1 each 05/02/22 21:15 Iv Access IV DIRECTED [facility] Insulin Aspart 0 units 05/03/22 12:00 05/04/22 07:46 Insulin Aspart 300 Units/3 Ml Pen SC 3 units 0800,1200,1700,2200 [facility] Administration Protocol Ketorolac Tromethamine 15 mg 05/03/22 11:58 05/04/22 07:29 Ketorolac 15 Mg/Ml Vial IVP 05/08/22 11:57 15 mg Q6H PRN PRN Administration Losartan Potassium 100 mg 05/03/22 08:30 05/04/22 07:46 Losartan 50 Mg Tab PO 100 mg DAILY RAJENDRA Administration Metoprolol Succinate 100 mg 05/03/22 08:30 05/04/22 07:45 Metoprolol Cr 100 Mg Tabcr PO 100 mg DAILY RAJENDRA Administration Pt's Own 1 each 05/03/22 08:30 05/04/22 09:23 Dapagliflozin ( PO 1 each Farxiga) 5mg Tablet DAILY RAJENDRA Administration Polyethylene Glycol 17 gm 05/02/22 22:19 Polyethylene Glycol 3350 17 Gm Packet PO DAILY PRN PRN Constipation Sodium Chloride 0 ml 05/02/22 21:02 05/04/22 11:06 Normal Saline Flush 10 Ml Syr IVP 10 ml PRN PRN Administration Allergies morphine Allergy (Mild, Unverified 05/02/22 21:00) itchy Exam Narrative Exam Narrative: Gen: NAD, normal respiratory effort, well-nourished HENT: PERRL Chest: No respiratory distress, normal appearance of chest, clear to auscultation bilaterally, left sided wheeze and crackles, normal inspiratory effort Heart: regular rate and rhythym, no murmurs, rubs or gallops Abdomen: Non-distended, soft, non tender Extremities: No clubbing, edema, cyanosis, rashes Neuro: AAOx3 , non focal Psych: cooperative, appropriate mental affect Results Last Vital Signs Temp 38.0 C H 05/04/22 11:09 Pulse 107 H 05/04/22 07:24 Resp 18 05/04/22 07:24 BP 146/81 H 05/04/22 07:24 Pulse Ox 94 05/04/22 07:24 Labs Result diagrams: 05/04/22 06:08 05/04/22 06:08 Labs: Laboratory Results - last 24 hr 05/03/22 05/03/22 05/03/22 09:00 09:00 14:05 WBC RBC Hgb 12.0 L D Hct 35.1 L MCV MCH MCHC RDW Plt Count MPV Immature Gran % Neutrophils % Lymphocytes % Monocytes % Eosinophils % Basophils % Nucleated RBC % Absolute Neutrophils Absolute Lymphocytes Absolute Monocytes Absolute Eosinophils Absolute Basophils Sodium Potassium Chloride Carbon Dioxide Anion Gap BUN Creatinine Estimated GFR/1.73 m2 Glucose Calcium Magnesium Total Bilirubin Conjugated Bilirubin AST ALT Alkaline Phosphatase C-Reactive Protein Total Protein Albumin Urine Color Yellow Urine Clarity Clear Urine pH 5.5 Ur Specific [place] 1.015 Urine Protein Negative Urine Ketones Trace H Urine Blood Negative Urine Nitrite Negative Urine Bilirubin Negative Urine Urobilinogen 2.0 H Ur Leukocyte Esterase Negative Urine Glucose 500 H Urine Legionella Ag Negative Add-On Test Request 05/04/22 05/04/22 05/04/22 06:08 06:08 06:08 WBC 9.44 RBC 3.72 L Hgb 11.3 L Hct 32.5 L MCV 87 MCH 30.4 MCHC 34.8 RDW 13.4 Plt Count 203 MPV 9.2 Immature Gran % 0.7 Neutrophils % 80.6 Lymphocytes % 3.4 Monocytes % 13.8 Eosinophils % 1.1 Basophils % 0.4 Nucleated RBC % 0.0 Absolute Neutrophils 7.61 H Absolute Lymphocytes 0.32 L Absolute Monocytes 1.30 H Absolute Eosinophils 0.10 Absolute Basophils 0.04 Sodium 135 L Potassium 3.6 Chloride 99 Carbon Dioxide 25.5 Anion Gap 10.5 BUN 25 H Creatinine 0.9 Estimated GFR/1.73 m2 >= 60.00 Glucose 177 H Calcium 8.5 Magnesium 1.9 Total Bilirubin 1.1 H Conjugated Bilirubin 0.6 H AST 19 ALT 25 Alkaline Phosphatase 67 C-Reactive Protein Total Protein 6.2 L Albumin 2.2 L Urine Color Urine Clarity Urine pH Ur Specific [place] Urine Protein Urine Ketones Urine Blood Urine Nitrite Urine Bilirubin Urine Urobilinogen Ur Leukocyte Esterase Urine Glucose Urine Legionella Ag Add-On Test Request DONE 05/04/22 06:08 WBC RBC Hgb Hct MCV MCH MCHC RDW Plt Count MPV Immature Gran % Neutrophils % Lymphocytes % Monocytes % Eosinophils % Basophils % Nucleated RBC % Absolute Neutrophils Absolute Lymphocytes Absolute Monocytes Absolute Eosinophils Absolute Basophils Sodium Potassium Chloride Carbon Dioxide Anion Gap BUN Creatinine Estimated GFR/1.73 m2 Glucose Calcium Magnesium Total Bilirubin Conjugated Bilirubin AST ALT Alkaline Phosphatase C-Reactive Protein > 25.00 H Total Protein Albumin Urine Color Urine Clarity Urine pH Ur Specific [place] Urine Protein Urine Ketones Urine Blood Urine Nitrite Urine Bilirubin Urine Urobilinogen Ur Leukocyte Esterase Urine Glucose Urine Legionella Ag Add-On Test Request
[2022-05-04] MEDS: Lactated Ringers 1,000 ML 1000 ML IV (12:18)
[2022-05-04] MEDS: Albuterol 2.5 MG/3 ML INH SOLN VIAL UPD ×3 (12:30→22:44)
--- NOTE | 2022-05-04 12:32 | W.PM.PROGNOT ---
Date of Service Date of service: 05/04/22 Time of Service: 12:32 Assessment and Plan Assessment and plan (1) Sepsis: Status: Acute Assessment and plan: Due to PNA, present on admission. I discussed the CT findings with Dr Pinto, who is now consulted. She feels that malignancy is less likely and this is all due to PNA at this time. Blood cultures negative to date; will repeat them as he is persistently febrile. Continue doxycycline/cefepime. Consider adding MRSA coverage. Will check MRSA nares. Await sputum culture results (normal bryn so far). Await urine strep and legionella. Anaplasma can also present with respiratory findings as well as electrolyte and LFT abnormalities - await tick panel. Continue doxycycline. Trend CRP, procalcitonin. (2) CAP (community acquired pneumonia): Status: Acute Assessment and plan: As above. Now with hypoxia, requiring 2L of O2 by NC. Add albuterol nebs. Abx as above. Encourage pulmonary toilet. (3) Hypoxia: Status: Acute Assessment and plan: Continue to try to wean off of O2. Target O2 sat >90%. (4) Pleuritic chest pain: Status: Acute Assessment and plan: Continue toradol prn as well as tylenol. Antitussives. Add flexeril and lidocaine patches for the likely trapezius spasm which is contributing. (5) Acute anemia: Status: Acute Assessment and plan: Yesterday's am H/H was an error. h/H is stable. Reinstate lovenox sc. (6) Diabetes mellitus type 2, noninsulin dependent: Status: Chronic Assessment and plan: Continue current therapy (7) Hyperbilirubinemia: Status: Acute Assessment and plan: In setting of acute illness. ?Gilbert's Consider tick illness. (8) Hypokalemia: Status: Resolved Assessment and plan: Recheck in am. (9) Hyponatremia: Status: Acute Assessment and plan: Better. Continue to hold diuretics. Recheck in am. (10) DVT prophylaxis: Status: Acute Assessment and plan: Enoxaparin SC. (11) Discharge planning issues: Status: Acute Assessment and plan: Full code. Continues to require hospitalization. Subjective Subjective Interval history since last seen: Mr Mcarthur states he has been getting thoughts in his head like what if this does not get better. He does not feel better. He has been febrile. He continues to have a frequent cough, cannot stop coughing, with yellow sputum. Reports L shoulder and neck pain since yesterday, thinks this is from coughing. [place] a little dizzy earlier today. Denies CP, not SOB talking to me on 2L of O2 (O2 sat 96%). No nausea. Hungry and eating lunch - requested that breathing treatment wait until after lunch. Exam Narrative Exam Narrative: General: Ill appearing middle-aged male, tearful, diaphoretic, warm to touch, coughing frequently, on 2L of O2 by NC, very mildly tachypneic but this calms down when he is no longer crying, A&Ox3 HEENT: EOMI, MMM Heart: RRR, no m/r/g Lungs: expiratory wheezing L>R. Abdomen: soft, nontender, nondistended Extremities: no edema BLEs Objective Last Vital Signs Temp 38.7 C H 05/04/22 11:45 Pulse 104 H 05/04/22 12:19 Resp 22 05/04/22 12:19 BP 99/54 L 05/04/22 12:19 Pulse Ox 91 L 05/04/22 11:45 Laboratory Results - last 24 hr 05/03/22 05/03/22 05/03/22 09:00 09:00 14:05 WBC RBC Hgb 12.0 L D Hct 35.1 L MCV MCH MCHC RDW Plt Count MPV Immature Gran % Neutrophils % Lymphocytes % Monocytes % Eosinophils % Basophils % Nucleated RBC % Absolute Neutrophils Absolute Lymphocytes Absolute Monocytes Absolute Eosinophils Absolute Basophils Sodium Potassium Chloride Carbon Dioxide Anion Gap BUN Creatinine Estimated GFR/1.73 m2 Glucose Calcium Magnesium Total Bilirubin Conjugated Bilirubin AST ALT Alkaline Phosphatase C-Reactive Protein Total Protein Albumin Urine Color Yellow Urine Clarity Clear Urine pH 5.5 Ur Specific [place] 1.015 Urine Protein Negative Urine Ketones Trace H Urine Blood Negative Urine Nitrite Negative Urine Bilirubin Negative Urine Urobilinogen 2.0 H Ur Leukocyte Esterase Negative Urine Glucose 500 H Urine Legionella Ag Negative Add-On Test Request 05/04/22 05/04/22 05/04/22 06:08 06:08 06:08 WBC 9.44 RBC 3.72 L Hgb 11.3 L Hct 32.5 L MCV 87 MCH 30.4 MCHC 34.8 RDW 13.4 Plt Count 203 MPV 9.2 Immature Gran % 0.7 Neutrophils % 80.6 Lymphocytes % 3.4 Monocytes % 13.8 Eosinophils % 1.1 Basophils % 0.4 Nucleated RBC % 0.0 Absolute Neutrophils 7.61 H Absolute Lymphocytes 0.32 L Absolute Monocytes 1.30 H Absolute Eosinophils 0.10 Absolute Basophils 0.04 Sodium 135 L Potassium 3.6 Chloride 99 Carbon Dioxide 25.5 Anion Gap 10.5 BUN 25 H Creatinine 0.9 Estimated GFR/1.73 m2 >= 60.00 Glucose 177 H Calcium 8.5 Magnesium 1.9 Total Bilirubin 1.1 H Conjugated Bilirubin 0.6 H AST 19 ALT 25 Alkaline Phosphatase 67 C-Reactive Protein Total Protein 6.2 L Albumin 2.2 L Urine Color Urine Clarity Urine pH Ur Specific [place] Urine Protein Urine Ketones Urine Blood Urine Nitrite Urine Bilirubin Urine Urobilinogen Ur Leukocyte Esterase Urine Glucose Urine Legionella Ag Add-On Test Request DONE 05/04/22 06:08 WBC RBC Hgb Hct MCV MCH MCHC RDW Plt Count MPV Immature Gran % Neutrophils % Lymphocytes % Monocytes % Eosinophils % Basophils % Nucleated RBC % Absolute Neutrophils Absolute Lymphocytes Absolute Monocytes Absolute Eosinophils Absolute Basophils Sodium Potassium Chloride Carbon Dioxide Anion Gap BUN Creatinine Estimated GFR/1.73 m2 Glucose Calcium Magnesium Total Bilirubin Conjugated Bilirubin AST ALT Alkaline Phosphatase C-Reactive Protein > 25.00 H Total Protein Albumin Urine Color Urine Clarity Urine pH Ur Specific [place] Urine Protein Urine Ketones Urine Blood Urine Nitrite Urine Bilirubin Urine Urobilinogen Ur Leukocyte Esterase Urine Glucose Urine Legionella Ag Add-On Test Request Objective Narrative Objective Narrative: CT chest w/o contrast: 1. Multiple noncalcified pulmonary nodules.? Large opacity involving the left upper lobe with air bronchograms.? With pulmonary nodules, metastatic disease to the lungs is of primary concern.? The left upper lobe opacity may reflect a superimposed pneumonia.? A mass or more pulmonary nodules in the left upper lobe cannot be excluded underlying the pneumonia. 2. Left pleural effusion. 3. Mediastinal adenopathy which may be reactive or metastatic. 4. Mild cardiomegaly. 5. Splenomegaly.? PAWSS Have you Been Recently Intoxicated or Drunk Within the Last 30 days?: No Have you Ever Experienced Previous Episodes of Alcohol Withdrawal?: No Have you ever Experienced Withdrawal Seizures?: No Have you ever Experienced Delirium Tremens(DT)s?: No Have you ever undergone Alcohol Rehabilitation Treatment (i.e, inpt ot outpatient treatment programs)?: No Have you ever Experienced Blackouts?: No Have you ever Combined Alcohol with other Downers within the last 90 days?: No Have you ever Combined Alcohol with any other Substance of Abuse during the last 90 days?: No Positive Blood Alcohol level on Presentation? [PCS.BAL]: No Evidence of Increased Autonomic Activity (i.e. HR>120, tremor, sweating, agitation, nausea)?: No Result: 0
[2022-05-04] MEDS: Cyclobenzaprine 10 MG TAB PO (12:42)
[2022-05-04] MEDS: Ketorolac 30 MG/ML VIAL IVP ×2 (12:56→21:32)
[2022-05-04 13:11] LABS: Lab Add On Test DONE
[2022-05-04] MEDS: Lidocaine 5% Patch 1 PATCH TP (13:53)
[2022-05-04 14:21] LABS: Lyme Ab w Rflx to Lyme Confirm Negative (Negative)
--- NOTE | 2022-05-04 15:32 | PDOC.CMPRO ---
- If Service Date Differs Date of service: 05/04/22 Time of Service: 15:32 Care Management Progress Note S/O: Deidre remains inpatient, he does not feel he is improving and is awaiting further guidance from MD when ROSSY meets with him. [facility] is denying inpatient status; CM entered indicia with MD input and faxed to [facility] to advocate for inpatient status. Awaiting pulmonology consult to inform treatment planning needs. CM continues to follow. A: 57 year old male admitted to [facility] 05/02/22 for Pneumonia. P: Deidre will return home when ready per MD. No additional services anticipated at this time. He will follow up with his PCP and plan of care as prescribed.
[2022-05-04 16:35] LABS: Angiotensin Converting Enzyme 21 U/L (16 - 85)
[2022-05-04] MEDS: Baclofen 10 MG TAB PO (17:22)
[2022-05-04] MEDS: LINEZOLID 600 MG/300 ML BAG 300 MG IVPB (18:12)
[2022-05-04] MEDS: LORazepam 0.5 MG TAB PO (22:44)
[2022-05-05] VITALS (19 sets, daily range): BP systolic 114–142; BP diastolic 62–88; PULSE 66–120; RESP 2–26; TEMP 37.4–39.5; O2SAT 91–96
[2022-05-05] MEDS: Albuterol 2.5 MG/3 ML INH SOLN VIAL UPD (01:39)
[2022-05-05] MEDS: ACETAMINOPHEN 1,000 MG/100 ML BTL 400 MG IVPB ×3 (02:17→19:48)
[2022-05-05] MEDS: guaiFENesin/CODEINE PHOSPHATE 10 ML CUP PO ×2 (02:17→19:47)
[2022-05-05] MEDS: Baclofen 10 MG TAB PO ×2 (02:17→19:47)
[2022-05-05] MEDS: Doxycycline Hyclate 100 MG CAP PO ×2 (05:31→17:41)
[2022-05-05] MEDS: LINEZOLID 600 MG/300 ML BAG 300 MG IVPB ×2 (05:31→17:41)
[2022-05-05 06:46] LABS: Abs Immature Grans 0.07 10^3/uL (0.0-0.06); Absolute Basophil Count 0.05 10^3/uL (0.0-0.2); Absolute Eosinophil Count 0.19 10^3/uL (0.0-0.7); Absolute Lymphocyte Count 0.35 10^3/uL (1.2-3.4); Absolute Neutrophil Count 7.63 10^3/uL (1.2-6.7); Basophils % 0.5; HCT 32.2 % (40.0-50.0); HGB 10.6 g/dL (13.5-17.5); Immature Grans % 0.7; Lymphocytes % 3.7; MCH 29.6 pg (27.0-33.0); MCHC 32.9 % (32.0-36.0); MCV 90 fL (80-95); MPV 8.9 fL (8.0-11.0); Monocytes % 11.7; Neutrophils % 81.4; Platelet Count 200 10^3/uL (130-400); RBC 3.58 10^6/uL (4.36-5.78); RDW 13.6 % (11.8-14.1); WBC 9.39 10^3/uL (4.4-10.8)
[2022-05-05] MEDS: CEFEPIME 2 GM in Normal Saline 100 ML IVPB ×3 (06:59→21:07)
[2022-05-05 07:09] LABS: Anion Gap 9.1 mmol/L (3-11); BUN 24 mg/dL (7-18); CO2 26.9 mmol/L (21.0-32.0); Calcium 8.4 mg/dL (8.5-10.1); Chloride 100 mmol/L (98-107); Glucose 164 mg/dL (74-106); Magnesium 2.1 mg/dL (1.8-2.4); Sodium 136 mmol/L (136-145)
[2022-05-05] MEDS: Normal Saline Flush 10 ML SYR IVP ×3 (07:47→17:13)
[2022-05-05] MEDS: Ketorolac 30 MG/ML VIAL IVP ×3 (07:47→21:01)
[2022-05-05 07:48] LABS: C-Reactive Protein > 25.00 mg/dL (0.0-0.3)
[2022-05-05] MEDS: Metoprolol CR 100 MG TABCR PO (07:53)
[2022-05-05] MEDS: guaiFENesin 600 MG TABCR PO ×2 (07:53→19:47)
[2022-05-05] MEDS: Benzonatate 200 MG CAP PO ×3 (07:53→19:47)
[2022-05-05] MEDS: Atorvastatin 40 MG TAB PO (07:53)
[2022-05-05] MEDS: Insulin Aspart 300 UNITS/3 ML PEN SC ×4 (07:54→21:14)
[2022-05-05] MEDS: Enoxaparin 40 MG/0.4 ML SYR SC (07:54)
[2022-05-05] MEDS: Lidocaine 5% Patch 1 PATCH TP (11:33)
--- NOTE | 2022-05-05 13:28 | W.PM.PROGNOT ---
Date of Service Date of service: 05/05/22 Time of Service: 12:15 Assessment and Plan Assessment and plan (1) Sepsis: Status: Acute Assessment and plan: Due to PNA, present on admission. Continue linezolid (day 2), cefepime (day 3), doxycycline (day 3). Await repeat sputum culture results (normal bryn so far on the origina). Await urine strep Ag. Negative legionella Ag. Anaplasma can also present with respiratory findings as well as electrolyte and LFT abnormalities - await tick panel. Continue doxycycline. Trend CRP, procalcitonin. Consider bronchoscopy. (2) CAP (community acquired pneumonia): Status: Acute Assessment and plan: As above. Continue bronchodilators, antitussives, abx as above. Abx as above. Encourage pulmonary toilet. (3) Hypoxia: Status: Resolved Assessment and plan: On RA today and doing better. Target O2 sat >90%. (4) Pleuritic chest pain: Status: Acute Assessment and plan: Continue toradol prn as well as tylenol. Antitussives. Baclofen for muscle spasms; lidocaine patches for the likely trapezius spasm which is contributing. (5) Acute anemia: Status: Acute Assessment and plan: Likely due to blood draws. No evidence of acute bleeding. Check anemia studies. (6) Diabetes mellitus type 2, noninsulin dependent: Status: Chronic Assessment and plan: Continue SSI. Holding oral hypoglycemic agents due to possible interactions with linezolid. Check A1C. (7) Hyperbilirubinemia: Status: Acute Assessment and plan: In setting of acute illness. ?Gilbert's Consider tick illness. (8) Hypokalemia: Status: Resolved Assessment and plan: Recheck in am. (9) Hyponatremia: Status: Acute Assessment and plan: Better. Continue to hold diuretics. Recheck in am. (10) DVT prophylaxis: Status: Acute Assessment and plan: Enoxaparin SC. (11) Discharge planning issues: Status: Acute Assessment and plan: Full code. Continues to require hospitalization. Subjective Subjective Interval history since last seen: Mr Mcarthur states his breathing is a lot better today. He is still getting periods when he just cannot stop coughing and he is still bringing up yellow sputum, but he overall feels his breathing is better. He is on room air. Denies dizziness, chest pain, nausea. Ate all of his lunch, appetite is better. Reports anxiety. Exam Narrative Exam Narrative: General: middle-aged male who looks better today, not coughing during my visit, does look a little anxious, on RA - no dyspnea/tachypnea/cyanosis. HEENT: EOMI, MMM Heart: RRR, no m/r/g Lungs: expiratory wheezing on L side only, CTA on R. Abdomen: soft, nontender, nondistended Extremities: no edema BLEs Objective Last Vital Signs Temp 38.0 C H 05/05/22 11:33 Pulse 111 H 05/05/22 08:42 Resp 22 05/05/22 08:42 BP 133/77 05/05/22 08:42 Pulse Ox 94 05/05/22 08:42 Laboratory Results - last 24 hr 05/03/22 05/03/22 05/05/22 00:00 08:18 06:10 WBC RBC Hgb Hct MCV MCH MCHC RDW Plt Count MPV Immature Gran % Neutrophils % Lymphocytes % Monocytes % Eosinophils % Basophils % Nucleated RBC % Absolute Neutrophils Absolute Lymphocytes Absolute Monocytes Absolute Eosinophils Absolute Basophils Sodium 136 Potassium 4.0 Chloride 100 Carbon Dioxide 26.9 Anion Gap 9.1 BUN 24 H Creatinine 1.0 Estimated GFR/1.73 m2 >= 60.00 Glucose 164 H Calcium 8.4 L Magnesium 2.1 C-Reactive Protein > 25.00 H Angiotensin Convert Enz 21 Lyme Disease Antibody Negative 05/05/22 06:10 WBC 9.39 RBC 3.58 L Hgb 10.6 L Hct 32.2 L MCV 90 MCH 29.6 MCHC 32.9 RDW 13.6 Plt Count 200 MPV 8.9 Immature Gran % 0.7 Neutrophils % 81.4 Lymphocytes % 3.7 Monocytes % 11.7 Eosinophils % 2.0 Basophils % 0.5 Nucleated RBC % 0.0 Absolute Neutrophils 7.63 H Absolute Lymphocytes 0.35 L Absolute Monocytes 1.10 H Absolute Eosinophils 0.19 Absolute Basophils 0.05 Sodium Potassium Chloride Carbon Dioxide Anion Gap BUN Creatinine Estimated GFR/1.73 m2 Glucose Calcium Magnesium C-Reactive Protein Angiotensin Convert Enz Lyme Disease Antibody PAWSS Have you Been Recently Intoxicated or Drunk Within the Last 30 days?: No Have you Ever Experienced Previous Episodes of Alcohol Withdrawal?: No Have you ever Experienced Withdrawal Seizures?: No Have you ever Experienced Delirium Tremens(DT)s?: No Have you ever undergone Alcohol Rehabilitation Treatment (i.e, inpt ot outpatient treatment programs)?: No Have you ever Experienced Blackouts?: No Have you ever Combined Alcohol with other Downers within the last 90 days?: No Have you ever Combined Alcohol with any other Substance of Abuse during the last 90 days?: No Positive Blood Alcohol level on Presentation? [PCS.BAL]: No Evidence of Increased Autonomic Activity (i.e. HR>120, tremor, sweating, agitation, nausea)?: No Result: 0
[2022-05-05] MEDS: Ondansetron 4 MG/2 ML VIAL IVP (17:13)
[2022-05-05] MEDS: LORazepam 0.5 MG TAB PO (21:02)
[2022-05-06] VITALS (18 sets, daily range): BP systolic 114–147; BP diastolic 69–85; PULSE 74–121; RESP 2–40; TEMP 36.4–39.9; O2SAT 91–96
--- NOTE | 2022-05-06 | DI.RAD_ITS ---
Exam(s) XR PORTABLE CHEST AP EXAM: XR PORTABLE CHEST AP CLINICAL HISTORY: follow up pneumonia. TECHNIQUE: 2D digital imaging was performed. COMPARISON: CR,XR XR PORTABLE CHEST AP from 05/02/[address] CHEST WO from 05/04/2022 FINDINGS: Single AP portable view. THERE HAS BEEN FURTHER DETERIORATION. Heart size unchanged. Mediastinum unchanged There is now almost complete opacification of the left lung field with confluent infiltrate. Nodular infiltrates in the right lung again noted. No obvious pleural effusions. IMPRESSION: Extensive infiltrate throughout the entire left lung. Lesser nodular infiltrates in the right lung.F indings represent significant further deterioration when compared to 05/02/2022 Combination of metastatic and infectious disease. No large pleural effusions. DATA REPOSITORY: RADIATION DOSE DELIVERED: All CT scans at this facility use at least one of these dose optimization techniques: automated exposure control; mA and/or kV adjustment per patient size (includes targeted e xams where dose is matched to clinical indication); or iterative reconstruction.
[2022-05-06] MEDS: Baclofen 10 MG TAB PO ×4 (01:01→23:16)
[2022-05-06] MEDS: guaiFENesin/CODEINE PHOSPHATE 10 ML CUP PO ×3 (01:01→22:31)
[2022-05-06] MEDS: LORazepam 0.5 MG TAB PO ×2 (02:32→15:50)
[2022-05-06] MEDS: Albuterol 2.5 MG/3 ML INH SOLN VIAL UPD (02:33)
[2022-05-06] MEDS: ACETAMINOPHEN 1,000 MG/100 ML BTL 400 MG IVPB ×4 (03:41→23:08)
[2022-05-06] MEDS: Ketorolac 30 MG/ML VIAL IVP ×3 (03:42→18:47)
[2022-05-06] MEDS: Doxycycline Hyclate 100 MG CAP PO (06:01)
[2022-05-06] MEDS: CEFEPIME 2 GM in Normal Saline 100 ML IVPB ×3 (06:01→22:18)
[2022-05-06] MEDS: LINEZOLID 600 MG/300 ML BAG 300 MG IVPB ×2 (06:37→17:39)
[2022-05-06] MEDS: Insulin Aspart 300 UNITS/3 ML PEN SC ×4 (07:55→22:18)
[2022-05-06] MEDS: Atorvastatin 40 MG TAB PO (07:55)
[2022-05-06] MEDS: Enoxaparin 40 MG/0.4 ML SYR SC (07:55)
[2022-05-06] MEDS: guaiFENesin 600 MG TABCR PO ×2 (07:55→19:54)
[2022-05-06] MEDS: Metoprolol CR 100 MG TABCR PO (07:55)
[2022-05-06] MEDS: Benzonatate 200 MG CAP PO ×3 (07:55→19:54)
[2022-05-06 08:11] LABS: Abs Immature Grans 0.08 10^3/uL (0.0-0.06); Absolute Basophil Count 0.05 10^3/uL (0.0-0.2); Absolute Lymphocyte Count 0.33 10^3/uL (1.2-3.4); Absolute Monocyte Count 1.12 10^3/uL (0.1-0.8); Absolute Neutrophil Count 8.52 10^3/uL (1.2-6.7); Basophils % 0.5; HCT 33.5 % (40.0-50.0); HGB 11.3 g/dL (13.5-17.5); Immature Grans % 0.8; Lymphocytes % 3.2; MCH 30.1 pg (27.0-33.0); MCHC 33.7 % (32.0-36.0); MCV 89 fL (80-95); MPV 9.2 fL (8.0-11.0); Neutrophils % 83.5; Platelet Count 213 10^3/uL (130-400); RBC 3.76 10^6/uL (4.36-5.78); RDW 13.7 % (11.8-14.1); RDW-SD 44.9 fL
[2022-05-06 08:12] LABS: Anion Gap 7.7 mmol/L (3-11); BUN 27 mg/dL (7-18); CO2 26.3 mmol/L (21.0-32.0); Calcium 8.1 mg/dL (8.5-10.1); Chloride 100 mmol/L (98-107); Glucose 199 mg/dL (74-106); Potassium 4.1 mmol/L (3.5-5.1); Sodium 134 mmol/L (136-145)
[2022-05-06 08:45] LABS: Source Nasal/Nares
[2022-05-06 08:47] LABS: Procalcitonin 0.5 ng/mL
[2022-05-06 08:54] LABS: Iron 11 ug/dL (65-175); Total Iron Binding Capacity 122 ug/dL (250-450); Transferrin Sat 9 % (20-55)
[2022-05-06 09:21] LABS: Ferritin 746 ng/mL (26-388); Folate 6.7 ng/mL (8.6-20.0); Vitamin B12 1086 pg/mL (193-986)
[2022-05-06 09:33] LABS: C-Reactive Protein 24.55 mg/dL (0.0-0.3)
--- NOTE | 2022-05-06 09:34 | DI.VRAD_ITS ---
PROCEDURE INFORMATION: Exam: XR Chest Exam date and time: 05/06/2022 8:12 AM Age: 57 years old Clinical indication: Other: Follow up pneumonia TECHNIQUE: Imaging protocol: Radiologic exam of the chest. Views: 1 view. COMPARISON: CT CHEST WO 05/04/2022 9:34 AM FINDINGS: Lungs: Again noted is diffuse opacity in the left hemithorax which may represent combination of pneumonia and malignancy. No definite improvement. Nodules in the right lung consistent with metastatic disease. Pleural spaces: Unremarkable. No pleural effusion. No pneumothorax. Heart/Mediastinum: Unremarkable. No cardiomegaly. Bones/joints: Unremarkable. IMPRESSION: 1. Again noted is diffuse opacity in the left hemithorax which may represent combination of pneumonia and malignancy. No definite improvement. 2. Nodules in the right lung consistent with metastatic disease. Dictated and Authenticated by: Parish Estevez MD. Ordering:ANTONINA Toledo MD
[2022-05-06 09:37] LABS: COVID-19 PCR Negative (Negative)
--- NOTE | 2022-05-06 11:10 | DI.CT_ITS ---
Exam(s) CT HEAD WO EXAM: CT HEAD WO CLINICAL HISTORY: AMS. TECHNIQUE: Imaging Protocol: Axial computed tomography images with coronal and sagittal reformatted images were created and reviewed COMPARISON: No exams were available for comparison FINDINGS: There are no skull fractures nor fluid in the visualized paranasal sinuses. There is no evidence of intracranial hemorrhage, mass effect, or shift of midline structures. There are no extra-axial fluid collections. The ventricles are not enlarged or shifted and there is no blo od within the ventricular system nor within the basal cisterns. IMPRESSION: No acute intracranial findings on this noninfused CT scan of the brain. RADIATION DOSE DELIVERED: 849.81mGy.cm Total DLP DATA REPOSITORY: All CT scans at this facility are submitted to the National Radiology Data Registry (NRDR) Dose Index Registry (DIR) with the [employer] (ACR). RADIATION OPTIMIZATION: All CT scans at this facility use at least one of these dose optimization te chniques: automated exposure control; mA and/or kV adjustment per patient size (includes targeted exa ms where dose is matched to clinical indication); or iterative reconstruction.
[2022-05-06] MEDS: Lidocaine 5% Patch 1 PATCH TP (12:06)
[2022-05-06] MEDS: Normal Saline Flush 10 ML SYR IVP ×4 (12:17→23:16)
--- NOTE | 2022-05-06 12:22 | DI.VRAD_ITS ---
PROCEDURE INFORMATION: Exam: CT Head Without Contrast Exam date and time: 05/06/2022 11:08 AM Age: 57 years old Clinical indication: Other: AMS TECHNIQUE: Imaging protocol: Computed tomography of the head without contrast. Radiation optimization: All CT scans at this facility use at least one of these dose optimization techniques: automated exposure control; mA and/or kV adjustment per patient size (includes targeted exams where dose is matched to clinical indication); or iterative reconstruction. COMPARISON: No relevant prior studies available. FINDINGS: Brain: Normal. No hemorrhage. Unremarkable white matter. No mass effect. Cerebral ventricles: No ventriculomegaly. Paranasal sinuses: Visualized sinuses are unremarkable. No fluid levels. Mastoid air cells: Visualized mastoid air cells are well aerated. Bones/joints: Unremarkable. No acute fracture. Soft tissues: Unremarkable. IMPRESSION: No acute intracranial abnormality. Dictated and Authenticated by: Parish Estevez MD. Ordering:ANTONINA Toledo MD
--- NOTE | 2022-05-06 13:22 | W.PM.PROGNOT ---
Date of Service Date of service: 05/06/22 Time of Service: 13:23 Assessment and Plan Assessment and plan (1) Sepsis: Status: Acute Assessment and plan: Due to PNA, present on admission. Persistently febrile with Tmax of 39.9 last night/this morning. I spoke with Dr Pinto, who recommends bronchoscopy - made NPO after midnight; lovenox held. I also spoke with [facility], who recommended actually stopping linezolid since his MRSA nares were negative. I am going to wait to discuss this with Dr Pinto, if the patient is still here. No new abx recommendations were made. Continue linezolid for now (day 3), cefepime (day 4), doxycycline (day 4). Because the patient was nauseated, we will switch doxycycline to IV. Dr Pinto does not feel that the infiltrates on the CT/CXR are c/w sarcoidosis (lymphadenopathy might be, however). Sputum cx w/ nml bryn. Blood cultures negative. Await urine strep Ag (still pending). Negative legionella Ag. Trend CRP, procalcitonin. (2) CAP (community acquired pneumonia): Status: Acute Assessment and plan: As above. No clear improvement. Imaging worse. O2 requirement is worse. Remains febrile. Continue bronchodilators, antitussives, abx as above. Encourage pulmonary toilet. (3) Hypoxia: Status: Acute Assessment and plan: Actually worse today, on 4.L Target O2 sat >90%. (4) Pleuritic chest pain: Status: Resolved Assessment and plan: Continue toradol prn as well as tylenol. Antitussives. Baclofen for muscle spasms; lidocaine patches for the likely trapezius spasm which is contributing. (5) Acute anemia: Status: Acute Assessment and plan: Likely due to blood draws. No evidence of acute bleeding. H/H is actually better. Is folate deficient - replete. (6) Diabetes mellitus type 2, noninsulin dependent: Status: Chronic Assessment and plan: A1C 7.0. Continue SSI. Holding oral hypoglycemic agents due to possible interactions with linezolid. (7) Hyperbilirubinemia: Status: Acute Assessment and plan: In setting of acute illness. ?Gilbert's Consider tick illness. (8) Hypokalemia: Status: Resolved Assessment and plan: Recheck in am. (9) Hyponatremia: Status: Acute Assessment and plan: A little worse today. Asymptomatic. Continue to hold diuretics. Recheck in am. (10) DVT prophylaxis: Status: Acute Assessment and plan: Enoxaparin SC on hold for tomorrow am due to anticipated procedure. (11) Discharge planning issues: Status: Acute Assessment and plan: Full code. Continues to require hospitalization. No medical necessity to transfer. The patient is aware that, if he were to leave, this would be against medical advice. Subjective Subjective Interval history since last seen: Mr Mcarthur is on 4.5 L of O2 today. When I came to see him, he had again taken it off, but he does require 4.5 L today, saturating 94%. Yesterday, when he was off of it, he was also supposed to be wearing the O2 (2.5 - 3L for the rest of the day, saturating 91%). Tmax 39.9. Was delirious and hallucinating last night. Nursing reports that he gets tachypneic when febrile, but that there is probably a component of anxiety. He denies dizziness, chest pain, states his shoulder pain is better. He has been intermittently nauseated and vomited last night. I discussed the case with Dr Pinto, who plans to perform a bronchoscopy on him tomorrow. She asked that I make the patient NPO. The patient states that he would rather go to [facility], but I explained to him that, without proof of medical necessity, I cannot transfer him and that his insurance company would not pay for the transfer. He verbalized understanding. He did mention that he was considering leaving AMA. He states he is not comfortable with doing a bronchoscopy in a small hospital. I explained to him that we had experience with these procedures here, but that he was free to make his own arrangements if he so wished. He requested to talk to the manager rn case from his insurance company. I had asked our day care center director to facility this interaction. He did mention that he was considering walking out of the hospital, which I had encouraged him not to, informed him that it would be AMA, and had asked him to let us know if that would be his plan because we would at least try to give him a tank of oxygen so that he could make it to wherever he was going. The patient did share with nursing that he was, in fact, diagnosed with sarcoidosis and he thinks he has had a bronchoscopy in the past at [facility]. I investigated [facility] records: [facility] does have a pulmonology note by Dr Charlton on 04/10/2004, discussing his diagnosis of sarcoidosis, which was made via lymph node bx by [facility] which appears to have been done by GI. I have requested [facility] medical records, where the patient had previously gotten testing. It does not appear that the patient understood what bronchoscopy was. I did describe it to him and explained that he would need to have anesthesia for it. The patient is trying to decide what his plan is and he will let us know. Exam Narrative Exam Narrative: General: middle-aged male anxious, does cough on my visit, not visibly short of breath, able to speak in full sentences, on 4.5 L of O2 by [place] HEENT: EOMI, MMM Heart: RRR, no m/r/g Lungs: expiratory wheezing and basilar rales on L. Abdomen: soft, nontender, nondistended Extremities: trace edema BLEs Objective Last Vital Signs Temp 37.7 C H 05/06/22 11:47 Pulse 100 H 05/06/22 11:47 Resp 28 H 05/06/22 11:47 BP 122/78 05/06/22 11:47 Pulse Ox 94 05/06/22 11:47 Laboratory Results - last 24 hr 05/06/22 05/06/22 05/06/22 07:58 07:58 07:58 WBC RBC Hgb Hct MCV MCH MCHC RDW Plt Count MPV Immature Gran % Neutrophils % Lymphocytes % Monocytes % Eosinophils % Basophils % Nucleated RBC % Absolute Neutrophils Absolute Lymphocytes Absolute Monocytes Absolute Eosinophils Absolute Basophils Sodium Potassium Chloride Carbon Dioxide Anion Gap BUN Creatinine Estimated GFR/1.73 m2 Glucose Hemoglobin A1c 7.0 H Calcium Magnesium 2.0 Iron 11 L TIBC 122 L Transferrin % Sat 9 L Ferritin 746 H C-Reactive Protein 24.55 H Vitamin B12 1086 H Folate 6.7 L Procalcitonin COVID-19 Source SARS-CoV-2 (PCR) 05/06/22 05/06/22 05/06/22 07:58 07:58 07:58 WBC 10.20 RBC 3.76 L Hgb 11.3 L Hct 33.5 L MCV 89 MCH 30.1 MCHC 33.7 RDW 13.7 Plt Count 213 MPV 9.2 Immature Gran % 0.8 Neutrophils % 83.5 Lymphocytes % 3.2 Monocytes % 11.0 Eosinophils % 1.0 Basophils % 0.5 Nucleated RBC % 0.0 Absolute Neutrophils 8.52 H Absolute Lymphocytes 0.33 L Absolute Monocytes 1.12 H Absolute Eosinophils 0.10 Absolute Basophils 0.05 Sodium 134 L Potassium 4.1 Chloride 100 Carbon Dioxide 26.3 Anion Gap 7.7 BUN 27 H Creatinine 1.0 Estimated GFR/1.73 m2 >= 60.00 Glucose 199 H Hemoglobin A1c Calcium 8.1 L Magnesium Iron TIBC Transferrin % Sat Ferritin C-Reactive Protein Vitamin B12 Folate Procalcitonin 0.5 COVID-19 Source SARS-CoV-2 (PCR) 05/06/22 08:25 WBC RBC Hgb Hct MCV MCH MCHC RDW Plt Count MPV Immature Gran % Neutrophils % Lymphocytes % Monocytes % Eosinophils % Basophils % Nucleated RBC % Absolute Neutrophils Absolute Lymphocytes Absolute Monocytes Absolute Eosinophils Absolute Basophils Sodium Potassium Chloride Carbon Dioxide Anion Gap BUN Creatinine Estimated GFR/1.73 m2 Glucose Hemoglobin A1c Calcium Magnesium Iron TIBC Transferrin % Sat Ferritin C-Reactive Protein Vitamin B12 Folate Procalcitonin COVID-19 Source Nasal/Nares SARS-CoV-2 (PCR) Negative Objective Narrative Objective Narrative: CXR: 1. Again noted is diffuse opacity in the left hemithorax which may represent combination of pneumonia and malignancy. No definite improvement. 2. Nodules in the right lung consistent with metastatic disease. CT head: No acute intracranial abnormality. PAWSS Have you Been Recently Intoxicated or Drunk Within the Last 30 days?: No Have you Ever Experienced Previous Episodes of Alcohol Withdrawal?: No Have you ever Experienced Withdrawal Seizures?: No Have you ever Experienced Delirium Tremens(DT)s?: No Have you ever undergone Alcohol Rehabilitation Treatment (i.e, inpt ot outpatient treatment programs)?: No Have you ever Experienced Blackouts?: No Have you ever Combined Alcohol with other Downers within the last 90 days?: No Have you ever Combined Alcohol with any other Substance of Abuse during the last 90 days?: No Positive Blood Alcohol level on Presentation? [PCS.BAL]: No Evidence of Increased Autonomic Activity (i.e. HR>120, tremor, sweating, agitation, nausea)?: No Result: 0
[2022-05-06 15:57] LABS: Streptococcus Pneumoniae Ag, U Negative (Negative)
[2022-05-06] MEDS: Polyethylene Glycol 3350 17 GM PACKET PO (16:45)
[2022-05-06] MEDS: DOXYCYCLINE 100 MG in Normal Saline 100 ML IVPB (17:39)
[2022-05-06] MEDS: Ondansetron 4 MG/2 ML VIAL IVP (18:38)
[2022-05-07] VITALS (23 sets, daily range): BP systolic 125–172; BP diastolic 72–121; PULSE 100–122; RESP 2–31; TEMP 36.8–39.1; O2SAT 82–97; BMI 32.8
[2022-05-07] MEDS: Albuterol 2.5 MG/3 ML INH SOLN VIAL UPD ×3 (02:22→17:17)
[2022-05-07] MEDS: Ketorolac 30 MG/ML VIAL IVP ×2 (02:31→08:36)
[2022-05-07] MEDS: Normal Saline Flush 10 ML SYR IVP ×6 (02:37→15:25)
[2022-05-07] MEDS: guaiFENesin/CODEINE PHOSPHATE 10 ML CUP PO ×2 (02:51→20:01)
[2022-05-07] MEDS: LORazepam 0.5 MG TAB PO ×3 (02:54→20:26)
[2022-05-07] MEDS: CEFEPIME 2 GM in Normal Saline 100 ML IVPB (05:47)
[2022-05-07] MEDS: LINEZOLID 600 MG/300 ML BAG 300 MG IVPB (06:25)
[2022-05-07] MEDS: DOXYCYCLINE 100 MG in Normal Saline 100 ML IVPB ×2 (06:25→17:54)
[2022-05-07 06:47] LABS: Abs Immature Grans 0.17 10^3/uL (0.0-0.06); Absolute Basophil Count 0.05 10^3/uL (0.0-0.2); Absolute Eosinophil Count 0.21 10^3/uL (0.0-0.7); Absolute Lymphocyte Count 0.34 10^3/uL (1.2-3.4); Absolute Monocyte Count 1.37 10^3/uL (0.1-0.8); Basophils % 0.4; Eosinophils % 1.5; HCT 34.3 % (40.0-50.0); HGB 11.6 g/dL (13.5-17.5); Immature Grans % 1.2; Lymphocytes % 2.5; MCH 29.7 pg (27.0-33.0); MCHC 33.8 % (32.0-36.0); MCV 88 fL (80-95); MPV 8.9 fL (8.0-11.0); Neutrophils % 84.4; Platelet Count 286 10^3/uL (130-400); RDW 13.8 % (11.8-14.1); RDW-SD 44.5 fL; WBC 13.67 10^3/uL (4.4-10.8)
[2022-05-07 06:55] LABS: Absolute Neutrophil Count 11.54 10^3/uL (1.2-6.7)
[2022-05-07 06:58] LABS: INR 1.1 (0.9-1.1); Prothrombin Time 10.9 sec (9.3-11.0)
[2022-05-07 07:00] LABS: Anion Gap 12.3 mmol/L (3-11); BUN 25 mg/dL (7-18); CO2 24.7 mmol/L (21.0-32.0); Calcium 8.3 mg/dL (8.5-10.1); Chloride 99 mmol/L (98-107); Glucose 182 mg/dL (74-106); Magnesium 2.3 mg/dL (1.8-2.4); Potassium 4.4 mmol/L (3.5-5.1); Sodium 136 mmol/L (136-145)
[2022-05-07 07:05] LABS: ALT 33 U/L (16-63); AST 28 U/L (15-37); Albumin 1.9 g/dL (3.4-5.0); Alkaline Phosphatase 85 U/L (46-116); Bilirubin, Direct 0.5 mg/dL (0.0-0.2)
[2022-05-07 07:14] LABS: C-Reactive Protein > 25.00 mg/dL (0.0-0.3)
[2022-05-07 07:51] LABS: Lab Add On Test DONE
[2022-05-07] MEDS: ACETAMINOPHEN 1,000 MG/100 ML BTL 400 MG IVPB ×2 (07:59→15:25)
[2022-05-07 08:04] LABS: PHOSPHORUS 2.6 mg/dL (2.6-4.7)
--- NOTE | 2022-05-07 08:12 | PGE_ITS ---
Assessment and Plan Assessment and plan (1) Sepsis: Status: Acute (2) CAP (community acquired pneumonia): Status: Acute (3) Hypoxia: Status: Acute Assessment and plan: This is a 57 yo otherwise healthy man admitted for a multilobar pneumonia. He has been on IV antibiotics for several days without significant improvement. He has had 2 sputum cultures but this returned as normal bryn. The pneumonia is significantly and most severe in the [place], but is multilobar. He has a small effusion on the left, but it is not large enough to consider tapping. He is on broad spectrum antibiotics including Linezolid, but his MRSA nares returned negative and so this can be discontinued.I have sent a Fungitell and HIV, however these have not returned yet. Walking and Acapella will help him clear more mucus, but given his continued issues, I will add the Volera to his regime n. Given his continued fevers and lack of improvement, we are planned for a bronchoscopy today at noon. I am hopeful this will be therapeutic as well as diagnostic - I will suction out as much secretions as I can during the procedure, in addition to completed a BAL. Multilobar Pneumonia - continue cefepime and doxy - can stop linezolid as MRSA nares is negative - f/u HIV - f/u Fungitell - f/u strep pneumo urine antigen - blood cultures - NGTD - agree with Acapella and IS - add Volera for more airway clearance - agree with prn albuterol nebs - ID at [facility] was consulted with no additional recommendations aside from stopping the Linezolid - bronchoscopy today at noon with BAL and therapeutic suctioning General Date Of Service Date of service: 05/07/22 Time of Service: 08:24 Reason for Consult: Non-resolving pneumonia Subjective 24 Hour Events: Deidre still feels miserable. He continues to be febrile and have productive coughing. His MRSA nares returned negative. ID at [facility] was consulted who recommended stopping the Linezolid as the MRSA nares is negative and to continue current antibiotics. Prior records from 2003 obtained from [facility] [place]. He was diagnosed with sarcoidosis at this time via EUS, however did not have any respiratory or cardiac symptoms associated with this and so did not have any treatment. Prior to his current infection he did not have any issues with breathing or his heart that he knew of. Exam Narrative Exam Narrative: Gen: toxic appearing, normal respiratory effort, well-nourished HENT: PERRL Chest: No respiratory distress, normal appearance of chest, clear to auscultation bilaterally, left sided wheeze and crackles, normal inspiratory eff ort Heart: regular rate and rhythym, no murmurs, rubs or gallops Abdomen: Non-distended, soft, non tender Extremities: No clubbing, edema, cyanosis, rashes Neuro: AAOx3 , non focal Psych: cooperative, appropriate mental affect Objective Last Vital Signs Temp 39.1 C H 05/07/22 07:59 Pulse 111 H 05/07/22 02:37 Resp 20 05/07/22 02:37 BP 130/88 05/07/22 02:37 Pulse Ox 96 05/07/22 05:50 Laboratory Results - last 24 hr 05/06/22 05/06/22 05/06/22 07:58 07:58 07:58 WBC RBC Hgb Hct MCV MCH MCHC RDW Plt Count MPV Immature Gran % Neutrophils % Lymphocytes % Monocytes % Eosinophils % Basophils % Nucleated RBC % Absolute Neutrophils Absolute Lymphocytes Absolute Monocytes Absolute Eosinophils Absolute Basophils PT INR Sodium Potassium Chloride Carbon Dioxide Anion Gap BUN Creatinine Estimated GFR/1.73 m2 Glucose Hemoglobin A1c 7.0 H Calcium Phosphorus Magnesium 2.0 Iron 11 L TIBC 122 L Transferrin % Sat 9 L Ferritin 746 H Total Bilirubin Conjugated Bilirubin AST ALT Alkaline Phosphatase C-Reactive Protein 24.55 H Total Protein Albumin Vitamin B12 1086 H Folate 6.7 L Procalcitonin COVID-19 Source SARS-CoV-2 (PCR) Add-On Test Request 05/06/22 05/06/22 05/06/22 07:58 07:58 07:58 WBC 10.20 RBC 3.76 L Hgb 11.3 L Hct 33.5 L MCV 89 MCH 30.1 MCHC 33.7 RDW 13.7 Plt Count 213 MPV 9.2 Immature Gran % 0.8 Neutrophils % 83.5 Lymphocytes % 3.2 Monocytes % 11.0 Eosinophils % 1.0 Basophils % 0.5 Nucleated RBC % 0.0 Absolute Neutrophils 8.52 H Absolute Lymphocytes 0.33 L Absolute Monocytes 1.12 H Absolute Eosinophils 0.10 Absolute Basophils 0.05 PT INR Sodium 134 L Potassium 4.1 Chloride 100 Carbon Dioxide 26.3 Anion Gap 7.7 BUN 27 H Creatinine 1.0 Estimated GFR/1.73 m2 >= 60.00 Glucose 199 H Hemoglobin A1c Calcium 8.1 L Phosphorus Magnesium Iron TIBC Transferrin % Sat Ferritin Total Bilirubin Conjugated Bilirubin AST ALT Alkaline Phosphatase C-Reactive Protein Total Protein Albumin Vitamin B12 Folate Procalcitonin 0.5 COVID-19 Source SARS-CoV-2 (PCR) Add-On Test Request 05/06/22 05/07/22 05/07/22 08:25 06:25 06:25 WBC 13.67 H RBC 3.90 L Hgb 11.6 L Hct 34.3 L MCV 88 MCH 29.7 MCHC 33.8 RDW 13.8 Plt Count 286 MPV 8.9 Immature Gran % 1.2 Neutrophils % 84.4 Lymphocytes % 2.5 Monocytes % 10.0 Eosinophils % 1.5 Basophils % 0.4 Nucleated RBC % 0.0 Absolute Neutrophils 11.54 H Absolute Lymphocytes 0.34 L Absolute Monocytes 1.37 H Absolute Eosinophils 0.21 Absolute Basophils 0.05 PT INR Sodium 136 Potassium 4.4 Chloride 99 Carbon Dioxide 24.7 Anion Gap 12.3 H BUN 25 H Creatinine 1.0 Estimated GFR/1.73 m2 >= 60.00 Glucose 182 H Hemoglobin A1c Calcium 8.3 L Phosphorus Magnesium 2.3 Iron TIBC Transferrin % Sat Ferritin Total Bilirubin Conjugated Bilirubin AST ALT Alkaline Phosphatase C-Reactive Protein > 25.00 H Total Protein Albumin Vitamin B12 Folate Procalcitonin COVID-19 Source Nasal/Nares SARS-CoV-2 (PCR) Negative Add-On Test Request 05/07/22 05/07/22 05/07/22 06:25 06:25 06:25 WBC RBC Hgb Hct MCV MCH MCHC RDW Plt Count MPV Immature Gran % Neutrophils % Lymphocytes % Monocytes % Eosinophils % Basophils % Nucleated RBC % Absolute Neutrophils Absolute Lymphocytes Absolute Monocytes Absolute Eosinophils Absolute Basophils PT 10.9 INR 1.1 Sodium Potassium Chloride Carbon Dioxide Anion Gap BUN Creatinine Estimated GFR/1.73 m2 Glucose Hemoglobin A1c Calcium Phosphorus Magnesium Iron TIBC Transferrin % Sat Ferritin Total Bilirubin 1.0 Conjugated Bilirubin 0.5 H AST 28 ALT 33 Alkaline Phosphatase 85 C-Reactive Protein Total Protein 6.0 L Albumin 1.9 L Vitamin B12 Folate Procalcitonin COVID-19 Source SARS-CoV-2 (PCR) Add-On Test Request DONE 05/07/22 06:25 WBC RBC Hgb Hct MCV MCH MCHC RDW Plt Count MPV Immature Gran % Neutrophils % Lymphocytes % Monocytes % Eosinophils % Basophils % Nucleated RBC % Absolute Neutrophils Absolute Lymphocytes Absolute Monocytes Absolute Eosinophils Absolute Basophils PT INR Sodium Potassium Chloride Carbon Dioxide Anion Gap BUN Creatinine Estimated GFR/1.73 m2 Glucose Hemoglobin A1c Calcium Phosphorus 2.6 Magnesium Iron TIBC Transferrin % Sat Ferritin Total Bilirubin Conjugated Bilirubin AST ALT Alkaline Phosphatase C-Reactive Protein Total Protein Albumin Vitamin B12 Folate Procalcitonin COVID-19 Source SARS-CoV-2 (PCR) Add-On Test Request Results Medications Medications: Active Medications Generic Name Dose Route Start Last Admin Trade Name Freq PRN Reason Stop Dose Admin Albuterol Sulfate 2.5 mg 05/04/22 12:05 05/07/22 06:42 Albuterol 2.5 Mg/3 Ml Inh Soln Vial UPD 2.5 mg Q2H PRN PRN Administration Atorvastatin Calcium 40 mg 05/03/22 08:30 05/06/22 07:55 Atorvastatin 40 Mg Tab PO 40 mg DAILY RAJENDRA Administration Baclofen 10 mg 05/04/22 16:40 05/06/22 23:16 Baclofen 10 Mg Tab PO 10 mg TID PRN PRN Administration Benzonatate 200 mg 05/03/22 14:00 05/06/22 19:54 Benzonatate 200 Mg Cap PO 200 mg TID RAJENDRA Administration Dextrose 0 gm 05/02/22 22:26 Glucose 40% Oral Solution 15 Gm/37.5 Gm Tube PO DIRECTED PRN Dextrose/Water 0 gm 05/02/22 22:26 Dextrose 50%-Water 25 Gm/50 Ml Syr IVP DIRECTED PRN Dimethicone/Zinc Oxide 0 gm 05/02/22 22:19 Brady Protect Cream 142 Gm Tube TP PRN PRN Enoxaparin Sodium 40 mg 05/03/22 08:30 05/06/22 07:55 Enoxaparin 40 Mg/0.4 Ml Syr SC 40 mg Q24H RAJENDRA Administration Folic Acid 1 mg 05/07/22 08:30 Folic Acid 1 Mg Tab PO DAILY [facility] Guaifenesin 600 mg 05/03/22 20:00 05/06/22 19:54 Guaifenesin 600 Mg Tabcr PO 600 mg BID RAJENDRA Administration Guaifenesin/Codeine Phosphate 10 ml 05/03/22 01:36 05/07/22 02:51 Guaifenesin/Codeine Phosphate 10 Ml Cup PO 10 ml Q4H PRN PRN Administration Cefepime HCl 2 gm/ Sodium 100 mls @ 200 mls/hr 05/03/22 14:00 05/07/22 05:47 Chloride IVPB 200 mls/hr Q8H RAJENDRA Administration Acetaminophen 1,000 mg in 100 mls @ 400 mls/hr 05/03/22 22:59 05/07/22 07:59 Ofirmev IVPB 400 mls/hr Q6H PRN PRN Administration Doxycycline Hyclate 100 mg/ 100 mls @ 100 mls/hr 05/06/22 18:00 05/07/22 06:25 Sodium Chloride IVPB 100 mls/hr Q12H RAJENDRA Administration IV Miscellaneous Supplies 1 each 05/02/22 21:15 Iv Access IV DIRECTED RAJENDRA Insulin Aspart 0 units 05/07/22 08:00 Insulin Aspart 300 Units/3 Ml Pen SC Q6H [facility] Protocol Ketorolac Tromethamine 30 mg 05/04/22 12:31 05/07/22 02:31 Ketorolac 30 Mg/Ml Vial IVP 05/08/22 11:57 30 mg Q6H PRN PRN Administration Lidocaine 1 patch 05/04/22 12:00 05/06/22 12:06 Lidocaine 5% Patch TP 1 patch DAILY@1200 RAJENDRA Administration Lorazepam 0.5 mg 05/04/22 21:56 05/07/22 02:54 Lorazepam 0.5 Mg Tab PO 0.5 mg QID PRN PRN Administration Metoprolol Succinate 100 mg 05/03/22 08:30 05/06/22 07:55 Metoprolol Cr 100 Mg Tabcr PO 100 mg DAILY RAJENDRA Administration Miscellaneous 1 each 05/05/22 00:00 05/06/22 22:32 Patch Removal (Lidocaine) TP 1 each DAILY@0000 RAJENDRA Administration Ondansetron HCl 4 mg 05/05/22 17:01 05/06/22 18:38 Ondansetron 4 Mg/2 Ml Vial IVP 4 mg Q6H PRN PRN Administration Pt's Own 1 each 05/03/22 08:30 05/06/22 07:55 Dapagliflozin ( PO 1 each Farxiga) 5mg Tablet DAILY RAJENDRA Administration Polyethylene Glycol 17 gm 05/02/22 22:19 05/06/22 16:45 Polyethylene Glycol 3350 17 Gm Packet PO 17 gm DAILY PRN PRN Administration Constipation Sodium Chloride 0 ml 05/02/22 21:02 05/07/22 08:00 Normal Saline Flush 10 Ml Syr IVP 10 ml PRN PRN Administration Allergies morphine Allergy (Mild, Unverified 05/02/22 21:00) itchy Labs Result Diagrams: 05/07/22 06:25 05/07/22 06:25 Labs: 05/04/22 21:30 Sputum Sputum Culture - Preliminary Normal Bryn 05/04/22 21:30 Sputum Gram Stain - Final 05/02/22 21:47 Blood Blood Culture - Preliminary NO GROWTH 96 HOURS 05/02/22 21:30 Blood Blood Culture - Preliminary NO GROWTH 96 HOURS 05/04/22 13:20 Blood Blood Culture - Preliminary NO GROWTH 48 HOURS 05/04/22 13:10 Blood Blood Culture - Preliminary NO GROWTH 48 HOURS 05/03/22 09:45 Sputum Sputum Culture - Final Normal Bryn 05/03/22 09:45 Sputum Gram Stain - Final 05/04/22 13:50 Nose MRSA Screen - Final Laboratory Tests Range/Units 05/02/22 05/02/22 05/02/22 21:30 21:30 21:30 WBC (4.4-10.8) 10^3/uL 9.45 RBC (4.36-5.78) 10^6/uL 4.04 L Hgb (13.5-17.5) g/dL 12.4 L Hct (40.0-50.0) % 35.0 L MCV (80-95) fL 87 MCH (27.0-33.0) pg 30.7 MCHC (32.0-36.0) % 35.4 RDW (11.8-14.1) % 13.2 Plt Count (130-400) 10^3/uL 190 MPV (8.0-11.0) fL 8.7 Immature Gran % 0.5 Neutrophils % 85.7 Lymphocytes % 3.2 Monocytes % 9.8 Eosinophils % 0.5 Basophils % 0.3 Nucleated RBC % (0.0-0.3) % 0.0 Absolute Neutrophils (1.2-6.7) 10^3/uL 8.09 H Absolute Lymphocytes (1.2-3.4) 10^3/uL 0.30 L Absolute Monocytes (0.1-0.8) 10^3/uL 0.93 H Absolute Eosinophils (0.0-0.7) 10^3/uL 0.05 Absolute Basophils (0.0-0.2) 10^3/uL 0.03 PT (9.3-11.0) sec INR (0.9-1.1) VBG pH (7.31-7.41) VBG pCO2 (41-51) mmHg VBG pO2 mmHg VBG HCO3 (23-28) mmol/L VBG Total CO2 (24-29) mmol/L VBG O2 Saturation % VBG Base Excess (-2-3) mmol/L VBG Lactate (0.6-1.4) mmol/L 1.2 Sodium (136-145) mmol/L 133 L Potassium (3.5-5.1) mmol/L 3.3 L Chloride (98-107) mmol/L 96 L Carbon Dioxide (21.0-32.0) mmol/L 25.2 Anion Gap (3-11) mmol/L 11.8 H BUN (7-18) mg/dL 25 H Creatinine (0.70-1.30) mg/dL 1.0 Estimated GFR/1.73 m2 (mL/min/1.73m2) >= 60.00 Glucose (74-106) mg/dL 146 H Hemoglobin A1c (<5.7) % Calcium (8.5-10.1) mg/dL 8.9 Phosphorus (2.6-4.7) mg/dL Magnesium (1.8-2.4) mg/dL 1.9 Iron (65-175) ug/dL TIBC (250-450) ug/dL Transferrin % Sat (20-55) % Ferritin (26-388) ng/mL Total Bilirubin (0.2-1.0) mg/dL 1.5 H Conjugated Bilirubin (0.0-0.2) mg/dL AST (15-37) U/L 17 ALT (16-63) U/L 26 Alkaline Phosphatase (46-116) U/L 71 C-Reactive Protein (0.0-0.3) mg/dL Total Protein (6.4-8.2) g/dL 6.8 Albumin (3.4-5.0) g/dL 2.6 L Angiotensin Convert Enz (16 - 85) U/L Vitamin B12 (193-986) pg/mL Folate (8.6-20.0) ng/mL Procalcitonin ng/mL 0.2 Urine Color (Yellow) Urine Clarity (Clear) Urine pH (5-8) Ur Specific [place] (1.005-1.025) Urine Protein (Negative) mg/dL Urine Ketones (Negative) mg/dL Urine Blood (Negative) Urine Nitrite (Negative) Urine Bilirubin (Negative) Urine Urobilinogen (Up TO 0.2) EU/dL Ur Leukocyte Esterase (Negative) Urine Glucose (Negative) mg/dL Lyme Disease Antibody (Negative) COVID-19 Source SARS-CoV-2 (PCR) (Negative) Influenza Type A (PCR) (Negative) Influenza Type B (PCR) (Negative) Urine Legionella Ag (Negative) RSV (PCR) (Negative) Add-On Test Request Range/Units 05/02/22 05/02/22 05/02/22 21:30 21:30 21:35 WBC (4.4-10.8) 10^3/uL RBC (4.36-5.78) 10^6/uL Hgb (13.5-17.5) g/dL Hct (40.0-50.0) % MCV (80-95) fL MCH (27.0-33.0) pg MCHC (32.0-36.0) % RDW (11.8-14.1) % Plt Count (130-400) 10^3/uL MPV (8.0-11.0) fL Immature Gran % Neutrophils % Lymphocytes % Monocytes % Eosinophils % Basophils % Nucleated RBC % (0.0-0.3) % Absolute Neutrophils (1.2-6.7) 10^3/uL Absolute Lymphocytes (1.2-3.4) 10^3/uL Absolute Monocytes (0.1-0.8) 10^3/uL Absolute Eosinophils (0.0-0.7) 10^3/uL Absolute Basophils (0.0-0.2) 10^3/uL PT (9.3-11.0) sec INR (0.9-1.1) VBG pH (7.31-7.41) 7.43 H VBG pCO2 (41-51) mmHg 39 L VBG pO2 mmHg 42 VBG HCO3 (23-28) mmol/L 26 VBG Total CO2 (24-29) mmol/L 23 L VBG O2 Saturation % 79 VBG Base Excess (-2-3) mmol/L 2 VBG Lactate (0.6-1.4) mmol/L Sodium (136-145) mmol/L Potassium (3.5-5.1) mmol/L Chloride (98-107) mmol/L Carbon Dioxide (21.0-32.0) mmol/L Anion Gap (3-11) mmol/L BUN (7-18) mg/dL Creatinine (0.70-1.30) mg/dL Estimated GFR/1.73 m2 (mL/min/1.73m2) Glucose (74-106) mg/dL Hemoglobin A1c (<5.7) % Calcium (8.5-10.1) mg/dL Phosphorus (2.6-4.7) mg/dL Magnesium (1.8-2.4) mg/dL Iron (65-175) ug/dL TIBC (250-450) ug/dL Transferrin % Sat (20-55) % Ferritin (26-388) ng/mL Total Bilirubin (0.2-1.0) mg/dL Conjugated Bilirubin (0.0-0.2) mg/dL AST (15-37) U/L ALT (16-63) U/L Alkaline Phosphatase (46-116) U/L C-Reactive Protein (0.0-0.3) mg/dL Total Protein (6.4-8.2) g/dL Albumin (3.4-5.0) g/dL Angiotensin Convert Enz (16 - 85) U/L Vitamin B12 (193-986) pg/mL Folate (8.6-20.0) ng/mL Procalcitonin ng/mL Urine Color (Yellow) Urine Clarity (Clear) Urine pH (5-8) Ur Specific [place] (1.005-1.025) Urine Protein (Negative) mg/dL Urine Ketones (Negative) mg/dL Urine Blood (Negative) Urine Nitrite (Negative) Urine Bilirubin (Negative) Urine Urobilinogen (Up TO 0.2) EU/dL Ur Leukocyte Esterase (Negative) Urine Glucose (Negative) mg/dL Lyme Disease Antibody (Negative) COVID-19 Source Nasopharynx SARS-CoV-2 (PCR) (Negative) Negative Influenza Type A (PCR) (Negative) Negative Influenza Type B (PCR) (Negative) Negative Urine Legionella Ag (Negative) RSV (PCR) (Negative) Negative Add-On Test Request DONE Range/Units 05/03/22 05/03/22 05/03/22 00:00 08:18 08:18 WBC (4.4-10.8) 10^3/uL 10.28 RBC (4.36-5.78) 10^6/uL 3.26 L Hgb (13.5-17.5) g/dL 9.8 L D Hct (40.0-50.0) % 29.0 L MCV (80-95) fL 89 MCH (27.0-33.0) pg 30.1 MCHC (32.0-36.0) % 33.8 RDW (11.8-14.1) % 13.3 Plt Count (130-400) 10^3/uL 204 MPV (8.0-11.0) fL 9.0 Immature Gran % 0.7 Neutrophils % 82.0 Lymphocytes % 4.2 Monocytes % 11.9 Eosinophils % 1.0 Basophils % 0.2 Nucleated RBC % (0.0-0.3) % 0.0 Absolute Neutrophils (1.2-6.7) 10^3/uL 8.44 H Absolute Lymphocytes (1.2-3.4) 10^3/uL 0.43 L Absolute Monocytes (0.1-0.8) 10^3/uL 1.22 H Absolute Eosinophils (0.0-0.7) 10^3/uL 0.10 Absolute Basophils (0.0-0.2) 10^3/uL 0.02 PT (9.3-11.0) sec INR (0.9-1.1) VBG pH (7.31-7.41) VBG pCO2 (41-51) mmHg VBG pO2 mmHg VBG HCO3 (23-28) mmol/L VBG Total CO2 (24-29) mmol/L VBG O2 Saturation % VBG Base Excess (-2-3) mmol/L VBG Lactate (0.6-1.4) mmol/L Sodium (136-145) mmol/L 134 L Potassium (3.5-5.1) mmol/L 3.4 L Chloride (98-107) mmol/L 96 L Carbon Dioxide (21.0-32.0) mmol/L 28.0 Anion Gap (3-11) mmol/L 10.0 BUN (7-18) mg/dL 22 H Creatinine (0.70-1.30) mg/dL 1.0 Estimated GFR/1.73 m2 (mL/min/1.73m2) >= 60.00 Glucose (74-106) mg/dL 165 H Hemoglobin A1c (<5.7) % Calcium (8.5-10.1) mg/dL 8.5 Phosphorus (2.6-4.7) mg/dL Magnesium (1.8-2.4) mg/dL 1.9 Iron (65-175) ug/dL TIBC (250-450) ug/dL Transferrin % Sat (20-55) % Ferritin (26-388) ng/mL Total Bilirubin (0.2-1.0) mg/dL Conjugated Bilirubin (0.0-0.2) mg/dL AST (15-37) U/L ALT (16-63) U/L Alkaline Phosphatase (46-116) U/L C-Reactive Protein (0.0-0.3) mg/dL Total Protein (6.4-8.2) g/dL Albumin (3.4-5.0) g/dL Angiotensin Convert Enz (16 - 85) U/L 21 Vitamin B12 (193-986) pg/mL Folate (8.6-20.0) ng/mL Procalcitonin ng/mL Urine Color (Yellow) Urine Clarity (Clear) Urine pH (5-8) Ur Specific [place] (1.005-1.025) Urine Protein (Negative) mg/dL Urine Ketones (Negative) mg/dL Urine Blood (Negative) Urine Nitrite (Negative) Urine Bilirubin (Negative) Urine Urobilinogen (Up TO 0.2) EU/dL Ur Leukocyte Esterase (Negative) Urine Glucose (Negative) mg/dL Lyme Disease Antibody (Negative) COVID-19 Source SARS-CoV-2 (PCR) (Negative) Influenza Type A (PCR) (Negative) Influenza Type B (PCR) (Negative) Urine Legionella Ag (Negative) RSV (PCR) (Negative) Add-On Test Request Range/Units 05/03/22 05/03/22 05/03/22 08:18 08:18 09:00 WBC (4.4-10.8) 10^3/uL RBC (4.36-5.78) 10^6/uL Hgb (13.5-17.5) g/dL Hct (40.0-50.0) % MCV (80-95) fL MCH (27.0-33.0) pg MCHC (32.0-36.0) % RDW (11.8-14.1) % Plt Count (130-400) 10^3/uL MPV (8.0-11.0) fL Immature Gran % Neutrophils % Lymphocytes % Monocytes % Eosinophils % Basophils % Nucleated RBC % (0.0-0.3) % Absolute Neutrophils (1.2-6.7) 10^3/uL Absolute Lymphocytes (1.2-3.4) 10^3/uL Absolute Monocytes (0.1-0.8) 10^3/uL Absolute Eosinophils (0.0-0.7) 10^3/uL Absolute Basophils (0.0-0.2) 10^3/uL PT (9.3-11.0) sec INR (0.9-1.1) VBG pH (7.31-7.41) VBG pCO2 (41-51) mmHg VBG pO2 mmHg VBG HCO3 (23-28) mmol/L VBG Total CO2 (24-29) mmol/L VBG O2 Saturation % VBG Base Excess (-2-3) mmol/L VBG Lactate (0.6-1.4) mmol/L Sodium (136-145) mmol/L Potassium (3.5-5.1) mmol/L Chloride (98-107) mmol/L Carbon Dioxide (21.0-32.0) mmol/L Anion Gap (3-11) mmol/L BUN (7-18) mg/dL Creatinine (0.70-1.30) mg/dL Estimated GFR/1.73 m2 (mL/min/1.73m2) Glucose (74-106) mg/dL Hemoglobin A1c (<5.7) % Calcium (8.5-10.1) mg/dL Phosphorus (2.6-4.7) mg/dL Magnesium (1.8-2.4) mg/dL Iron (65-175) ug/dL TIBC (250-450) ug/dL Transferrin % Sat (20-55) % Ferritin (26-388) ng/mL Total Bilirubin (0.2-1.0) mg/dL 1.3 H Conjugated Bilirubin (0.0-0.2) mg/dL 0.6 H AST (15-37) U/L 19 ALT (16-63) U/L 25 Alkaline Phosphatase (46-116) U/L 69 C-Reactive Protein (0.0-0.3) mg/dL Total Protein (6.4-8.2) g/dL 6.4 Albumin (3.4-5.0) g/dL 2.5 L Angiotensin Convert Enz (16 - 85) U/L Vitamin B12 (193-986) pg/mL Folate (8.6-20.0) ng/mL Procalcitonin ng/mL Urine Color (Yellow) Urine Clarity (Clear) Urine pH (5-8) Ur Specific [place] (1.005-1.025) Urine Protein (Negative) mg/dL Urine Ketones (Negative) mg/dL Urine Blood (Negative) Urine Nitrite (Negative) Urine Bilirubin (Negative) Urine Urobilinogen (Up TO 0.2) EU/dL Ur Leukocyte Esterase (Negative) Urine Glucose (Negative) mg/dL Lyme Disease Antibody (Negative) Negative COVID-19 Source SARS-CoV-2 (PCR) (Negative) Influenza Type A (PCR) (Negative) Influenza Type B (PCR) (Negative) Urine Legionella Ag (Negative) Negative RSV (PCR) (Negative) Add-On Test Request Range/Units 05/03/22 05/03/22 05/04/22 09:00 14:05 06:08 WBC (4.4-10.8) 10^3/uL RBC (4.36-5.78) 10^6/uL Hgb (13.5-17.5) g/dL 12.0 L D Hct (40.0-50.0) % 35.1 L MCV (80-95) fL MCH (27.0-33.0) pg MCHC (32.0-36.0) % RDW (11.8-14.1) % Plt Count (130-400) 10^3/uL MPV (8.0-11.0) fL Immature Gran % Neutrophils % Lymphocytes % Monocytes % Eosinophils % Basophils % Nucleated RBC % (0.0-0.3) % Absolute Neutrophils (1.2-6.7) 10^3/uL Absolute Lymphocytes (1.2-3.4) 10^3/uL Absolute Monocytes (0.1-0.8) 10^3/uL Absolute Eosinophils (0.0-0.7) 10^3/uL Absolute Basophils (0.0-0.2) 10^3/uL PT (9.3-11.0) sec INR (0.9-1.1) VBG pH (7.31-7.41) VBG pCO2 (41-51) mmHg VBG pO2 mmHg VBG HCO3 (23-28) mmol/L VBG Total CO2 (24-29) mmol/L VBG O2 Saturation % VBG Base Excess (-2-3) mmol/L VBG Lactate (0.6-1.4) mmol/L Sodium (136-145) mmol/L 135 L Potassium (3.5-5.1) mmol/L 3.6 Chloride (98-107) mmol/L 99 Carbon Dioxide (21.0-32.0) mmol/L 25.5 Anion Gap (3-11) mmol/L 10.5 BUN (7-18) mg/dL 25 H Creatinine (0.70-1.30) mg/dL 0.9 Estimated GFR/1.73 m2 (mL/min/1.73m2) >= 60.00 Glucose (74-106) mg/dL 177 H Hemoglobin A1c (<5.7) % Calcium (8.5-10.1) mg/dL 8.5 Phosphorus (2.6-4.7) mg/dL Magnesium (1.8-2.4) mg/dL 1.9 Iron (65-175) ug/dL TIBC (250-450) ug/dL Transferrin % Sat (20-55) % Ferritin (26-388) ng/mL Total Bilirubin (0.2-1.0) mg/dL 1.1 H Conjugated Bilirubin (0.0-0.2) mg/dL 0.6 H AST (15-37) U/L 19 ALT (16-63) U/L 25 Alkaline Phosphatase (46-116) U/L 67 C-Reactive Protein (0.0-0.3) mg/dL Total Protein (6.4-8.2) g/dL 6.2 L Albumin (3.4-5.0) g/dL 2.2 L Angiotensin Convert Enz (16 - 85) U/L Vitamin B12 (193-986) pg/mL Folate (8.6-20.0) ng/mL Procalcitonin ng/mL Urine Color (Yellow) Yellow Urine Clarity (Clear) Clear Urine pH (5-8) 5.5 Ur Specific [place] (1.005-1.025) 1.015 Urine Protein (Negative) mg/dL Negative Urine Ketones (Negative) mg/dL Trace H Urine Blood (Negative) Negative Urine Nitrite (Negative) Negative Urine Bilirubin (Negative) Negative Urine Urobilinogen (Up TO 0.2) EU/dL 2.0 H Ur Leukocyte Esterase (Negative) Negative Urine Glucose (Negative) mg/dL 500 H Lyme Disease Antibody (Negative) COVID-19 Source SARS-CoV-2 (PCR) (Negative) Influenza Type A (PCR) (Negative) Influenza Type B (PCR) (Negative) Urine Legionella Ag (Negative) RSV (PCR) (Negative) Add-On Test Request Range/Units 05/04/22 05/04/22 05/04/22 06:08 06:08 06:08 WBC (4.4-10.8) 10^3/uL 9.44 RBC (4.36-5.78) 10^6/uL 3.72 L Hgb (13.5-17.5) g/dL 11.3 L Hct (40.0-50.0) % 32.5 L MCV (80-95) fL 87 MCH (27.0-33.0) pg 30.4 MCHC (32.0-36.0) % 34.8 RDW (11.8-14.1) % 13.4 Plt Count (130-400) 10^3/uL 203 MPV (8.0-11.0) fL 9.2 Immature Gran % 0.7 Neutrophils % 80.6 Lymphocytes % 3.4 Monocytes % 13.8 Eosinophils % 1.1 Basophils % 0.4 Nucleated RBC % (0.0-0.3) % 0.0 Absolute Neutrophils (1.2-6.7) 10^3/uL 7.61 H Absolute Lymphocytes (1.2-3.4) 10^3/uL 0.32 L Absolute Monocytes (0.1-0.8) 10^3/uL 1.30 H Absolute Eosinophils (0.0-0.7) 10^3/uL 0.10 Absolute Basophils (0.0-0.2) 10^3/uL 0.04 PT (9.3-11.0) sec INR (0.9-1.1) VBG pH (7.31-7.41) VBG pCO2 (41-51) mmHg VBG pO2 mmHg VBG HCO3 (23-28) mmol/L VBG Total CO2 (24-29) mmol/L VBG O2 Saturation % VBG Base Excess (-2-3) mmol/L VBG Lactate (0.6-1.4) mmol/L Sodium (136-145) mmol/L Potassium (3.5-5.1) mmol/L Chloride (98-107) mmol/L Carbon Dioxide (21.0-32.0) mmol/L Anion Gap (3-11) mmol/L BUN (7-18) mg/dL Creatinine (0.70-1.30) mg/dL Estimated GFR/1.73 m2 (mL/min/1.73m2) Glucose (74-106) mg/dL Hemoglobin A1c (<5.7) % Calcium (8.5-10.1) mg/dL Phosphorus (2.6-4.7) mg/dL Magnesium (1.8-2.4) mg/dL Iron (65-175) ug/dL TIBC (250-450) ug/dL Transferrin % Sat (20-55) % Ferritin (26-388) ng/mL Total Bilirubin (0.2-1.0) mg/dL Conjugated Bilirubin (0.0-0.2) mg/dL AST (15-37) U/L ALT (16-63) U/L Alkaline Phosphatase (46-116) U/L C-Reactive Protein (0.0-0.3) mg/dL > 25.00 H Total Protein (6.4-8.2) g/dL Albumin (3.4-5.0) g/dL Angiotensin Convert Enz (16 - 85) U/L Vitamin B12 (193-986) pg/mL Folate (8.6-20.0) ng/mL Procalcitonin ng/mL Urine Color (Yellow) Urine Clarity (Clear) Urine pH (5-8) Ur Specific [place] (1.005-1.025) Urine Protein (Negative) mg/dL Urine Ketones (Negative) mg/dL Urine Blood (Negative) Urine Nitrite (Negative) Urine Bilirubin (Negative) Urine Urobilinogen (Up TO 0.2) EU/dL Ur Leukocyte Esterase (Negative) Urine Glucose (Negative) mg/dL Lyme Disease Antibody (Negative) COVID-19 Source SARS-CoV-2 (PCR) (Negative) Influenza Type A (PCR) (Negative) Influenza Type B (PCR) (Negative) Urine Legionella Ag (Negative) RSV (PCR) (Negative) Add-On Test Request DONE Range/Units 05/05/22 05/05/22 05/06/22 06:10 06:10 07:58 WBC (4.4-10.8) 10^3/uL 9.39 RBC (4.36-5.78) 10^6/uL 3.58 L Hgb (13.5-17.5) g/dL 10.6 L Hct (40.0-50.0) % 32.2 L MCV (80-95) fL 90 MCH (27.0-33.0) pg 29.6 MCHC (32.0-36.0) % 32.9 RDW (11.8-14.1) % 13.6 Plt Count (130-400) 10^3/uL 200 MPV (8.0-11.0) fL 8.9 Immature Gran % 0.7 Neutrophils % 81.4 Lymphocytes % 3.7 Monocytes % 11.7 Eosinophils % 2.0 Basophils % 0.5 Nucleated RBC % (0.0-0.3) % 0.0 Absolute Neutrophils (1.2-6.7) 10^3/uL 7.63 H Absolute Lymphocytes (1.2-3.4) 10^3/uL 0.35 L Absolute Monocytes (0.1-0.8) 10^3/uL 1.10 H Absolute Eosinophils (0.0-0.7) 10^3/uL 0.19 Absolute Basophils (0.0-0.2) 10^3/uL 0.05 PT (9.3-11.0) sec INR (0.9-1.1) VBG pH (7.31-7.41) VBG pCO2 (41-51) mmHg VBG pO2 mmHg VBG HCO3 (23-28) mmol/L VBG Total CO2 (24-29) mmol/L VBG O2 Saturation % VBG Base Excess (-2-3) mmol/L VBG Lactate (0.6-1.4) mmol/L Sodium (136-145) mmol/L 136 Potassium (3.5-5.1) mmol/L 4.0 Chloride (98-107) mmol/L 100 Carbon Dioxide (21.0-32.0) mmol/L 26.9 Anion Gap (3-11) mmol/L 9.1 BUN (7-18) mg/dL 24 H Creatinine (0.70-1.30) mg/dL 1.0 Estimated GFR/1.73 m2 (mL/min/1.73m2) >= 60.00 Glucose (74-106) mg/dL 164 H Hemoglobin A1c (<5.7) % 7.0 H Calcium (8.5-10.1) mg/dL 8.4 L Phosphorus (2.6-4.7) mg/dL Magnesium (1.8-2.4) mg/dL 2.1 Iron (65-175) ug/dL TIBC (250-450) ug/dL Transferrin % Sat (20-55) % Ferritin (26-388) ng/mL Total Bilirubin (0.2-1.0) mg/dL Conjugated Bilirubin (0.0-0.2) mg/dL AST (15-37) U/L ALT (16-63) U/L Alkaline Phosphatase (46-116) U/L C-Reactive Protein (0.0-0.3) mg/dL > 25.00 H Total Protein (6.4-8.2) g/dL Albumin (3.4-5.0) g/dL Angiotensin Convert Enz (16 - 85) U/L Vitamin B12 (193-986) pg/mL Folate (8.6-20.0) ng/mL Procalcitonin ng/mL Urine Color (Yellow) Urine Clarity (Clear) Urine pH (5-8) Ur Specific [place] (1.005-1.025) Urine Protein (Negative) mg/dL Urine Ketones (Negative) mg/dL Urine Blood (Negative) Urine Nitrite (Negative) Urine Bilirubin (Negative) Urine Urobilinogen (Up TO 0.2) EU/dL Ur Leukocyte Esterase (Negative) Urine Glucose (Negative) mg/dL Lyme Disease Antibody (Negative) COVID-19 Source SARS-CoV-2 (PCR) (Negative) Influenza Type A (PCR) (Negative) Influenza Type B (PCR) (Negative) Urine Legionella Ag (Negative) RSV (PCR) (Negative) Add-On Test Request Range/Units 05/06/22 05/06/22 05/06/22 07:58 07:58 07:58 WBC (4.4-10.8) 10^3/uL RBC (4.36-5.78) 10^6/uL Hgb (13.5-17.5) g/dL Hct (40.0-50.0) % MCV (80-95) fL MCH (27.0-33.0) pg MCHC (32.0-36.0) % RDW (11.8-14.1) % Plt Count (130-400) 10^3/uL MPV (8.0-11.0) fL Immature Gran % Neutrophils % Lymphocytes % Monocytes % Eosinophils % Basophils % Nucleated RBC % (0.0-0.3) % Absolute Neutrophils (1.2-6.7) 10^3/uL Absolute Lymphocytes (1.2-3.4) 10^3/uL Absolute Monocytes (0.1-0.8) 10^3/uL Absolute Eosinophils (0.0-0.7) 10^3/uL Absolute Basophils (0.0-0.2) 10^3/uL PT (9.3-11.0) sec INR (0.9-1.1) VBG pH (7.31-7.41) VBG pCO2 (41-51) mmHg VBG pO2 mmHg VBG HCO3 (23-28) mmol/L VBG Total CO2 (24-29) mmol/L VBG O2 Saturation % VBG Base Excess (-2-3) mmol/L VBG Lactate (0.6-1.4) mmol/L Sodium (136-145) mmol/L 134 L Potassium (3.5-5.1) mmol/L 4.1 Chloride (98-107) mmol/L 100 Carbon Dioxide (21.0-32.0) mmol/L 26.3 Anion Gap (3-11) mmol/L 7.7 BUN (7-18) mg/dL 27 H Creatinine (0.70-1.30) mg/dL 1.0 Estimated GFR/1.73 m2 (mL/min/1.73m2) >= 60.00 Glucose (74-106) mg/dL 199 H Hemoglobin A1c (<5.7) % Calcium (8.5-10.1) mg/dL 8.1 L Phosphorus (2.6-4.7) mg/dL Magnesium (1.8-2.4) mg/dL 2.0 Iron (65-175) ug/dL 11 L TIBC (250-450) ug/dL 122 L Transferrin % Sat (20-55) % 9 L Ferritin (26-388) ng/mL 746 H Total Bilirubin (0.2-1.0) mg/dL Conjugated Bilirubin (0.0-0.2) mg/dL AST (15-37) U/L ALT (16-63) U/L Alkaline Phosphatase (46-116) U/L C-Reactive Protein (0.0-0.3) mg/dL 24.55 H Total Protein (6.4-8.2) g/dL Albumin (3.4-5.0) g/dL Angiotensin Convert Enz (16 - 85) U/L Vitamin B12 (193-986) pg/mL 1086 H Folate (8.6-20.0) ng/mL 6.7 L Procalcitonin ng/mL Urine Color (Yellow) Urine Clarity (Clear) Urine pH (5-8) Ur Specific [place] (1.005-1.025) Urine Protein (Negative) mg/dL Urine Ketones (Negative) mg/dL Urine Blood (Negative) Urine Nitrite (Negative) Urine Bilirubin (Negative) Urine Urobilinogen (Up TO 0.2) EU/dL Ur Leukocyte Esterase (Negative) Urine Glucose (Negative) mg/dL Lyme Disease Antibody (Negative) COVID-19 Source SARS-CoV-2 (PCR) (Negative) Influenza Type A (PCR) (Negative) Influenza Type B (PCR) (Negative) Urine Legionella Ag (Negative) RSV (PCR) (Negative) Add-On Test Request Range/Units 05/06/22 05/06/22 05/06/22 07:58 07:58 08:25 WBC (4.4-10.8) 10^3/uL 10.20 RBC (4.36-5.78) 10^6/uL 3.76 L Hgb (13.5-17.5) g/dL 11.3 L Hct (40.0-50.0) % 33.5 L MCV (80-95) fL 89 MCH (27.0-33.0) pg 30.1 MCHC (32.0-36.0) % 33.7 RDW (11.8-14.1) % 13.7 Plt Count (130-400) 10^3/uL 213 MPV (8.0-11.0) fL 9.2 Immature Gran % 0.8 Neutrophils % 83.5 Lymphocytes % 3.2 Monocytes % 11.0 Eosinophils % 1.0 Basophils % 0.5 Nucleated RBC % (0.0-0.3) % 0.0 Absolute Neutrophils (1.2-6.7) 10^3/uL 8.52 H Absolute Lymphocytes (1.2-3.4) 10^3/uL 0.33 L Absolute Monocytes (0.1-0.8) 10^3/uL 1.12 H Absolute Eosinophils (0.0-0.7) 10^3/uL 0.10 Absolute Basophils (0.0-0.2) 10^3/uL 0.05 PT (9.3-11.0) sec INR (0.9-1.1) VBG pH (7.31-7.41) VBG pCO2 (41-51) mmHg VBG pO2 mmHg VBG HCO3 (23-28) mmol/L VBG Total CO2 (24-29) mmol/L VBG O2 Saturation % VBG Base Excess (-2-3) mmol/L VBG Lactate (0.6-1.4) mmol/L Sodium (136-145) mmol/L Potassium (3.5-5.1) mmol/L Chloride (98-107) mmol/L Carbon Dioxide (21.0-32.0) mmol/L Anion Gap (3-11) mmol/L BUN (7-18) mg/dL Creatinine (0.70-1.30) mg/dL Estimated GFR/1.73 m2 (mL/min/1.73m2) Glucose (74-106) mg/dL Hemoglobin A1c (<5.7) % Calcium (8.5-10.1) mg/dL Phosphorus (2.6-4.7) mg/dL Magnesium (1.8-2.4) mg/dL Iron (65-175) ug/dL TIBC (250-450) ug/dL Transferrin % Sat (20-55) % Ferritin (26-388) ng/mL Total Bilirubin (0.2-1.0) mg/dL Conjugated Bilirubin (0.0-0.2) mg/dL AST (15-37) U/L ALT (16-63) U/L Alkaline Phosphatase (46-116) U/L C-Reactive Protein (0.0-0.3) mg/dL Total Protein (6.4-8.2) g/dL Albumin (3.4-5.0) g/dL Angiotensin Convert Enz (16 - 85) U/L Vitamin B12 (193-986) pg/mL Folate (8.6-20.0) ng/mL Procalcitonin ng/mL 0.5 Urine Color (Yellow) Urine Clarity (Clear) Urine pH (5-8) Ur Specific [place] (1.005-1.025) Urine Protein (Negative) mg/dL Urine Ketones (Negative) mg/dL Urine Blood (Negative) Urine Nitrite (Negative) Urine Bilirubin (Negative) Urine Urobilinogen (Up TO 0.2) EU/dL Ur Leukocyte Esterase (Negative) Urine Glucose (Negative) mg/dL Lyme Disease Antibody (Negative) COVID-19 Source Nasal/Nares SARS-CoV-2 (PCR) (Negative) Negative Influenza Type A (PCR) (Negative) Influenza Type B (PCR) (Negative) Urine Legionella Ag (Negative) RSV (PCR) (Negative) Add-On Test Request Range/Units 05/07/22 05/07/22 05/07/22 06:25 06:25 06:25 WBC (4.4-10.8) 10^3/uL 13.67 H RBC (4.36-5.78) 10^6/uL 3.90 L Hgb (13.5-17.5) g/dL 11.6 L Hct (40.0-50.0) % 34.3 L MCV (80-95) fL 88 MCH (27.0-33.0) pg 29.7 MCHC (32.0-36.0) % 33.8 RDW (11.8-14.1) % 13.8 Plt Count (130-400) 10^3/uL 286 MPV (8.0-11.0) fL 8.9 Immature Gran % 1.2 Neutrophils % 84.4 Lymphocytes % 2.5 Monocytes % 10.0 Eosinophils % 1.5 Basophils % 0.4 Nucleated RBC % (0.0-0.3) % 0.0 Absolute Neutrophils (1.2-6.7) 10^3/uL 11.54 H Absolute Lymphocytes (1.2-3.4) 10^3/uL 0.34 L Absolute Monocytes (0.1-0.8) 10^3/uL 1.37 H Absolute Eosinophils (0.0-0.7) 10^3/uL 0.21 Absolute Basophils (0.0-0.2) 10^3/uL 0.05 PT (9.3-11.0) sec INR (0.9-1.1) VBG pH (7.31-7.41) VBG pCO2 (41-51) mmHg VBG pO2 mmHg VBG HCO3 (23-28) mmol/L VBG Total CO2 (24-29) mmol/L VBG O2 Saturation % VBG Base Excess (-2-3) mmol/L VBG Lactate (0.6-1.4) mmol/L Sodium (136-145) mmol/L 136 Potassium (3.5-5.1) mmol/L 4.4 Chloride (98-107) mmol/L 99 Carbon Dioxide (21.0-32.0) mmol/L 24.7 Anion Gap (3-11) mmol/L 12.3 H BUN (7-18) mg/dL 25 H Creatinine (0.70-1.30) mg/dL 1.0 Estimated GFR/1.73 m2 (mL/min/1.73m2) >= 60.00 Glucose (74-106) mg/dL 182 H Hemoglobin A1c (<5.7) % Calcium (8.5-10.1) mg/dL 8.3 L Phosphorus (2.6-4.7) mg/dL Magnesium (1.8-2.4) mg/dL 2.3 Iron (65-175) ug/dL TIBC (250-450) ug/dL Transferrin % Sat (20-55) % Ferritin (26-388) ng/mL Total Bilirubin (0.2-1.0) mg/dL 1.0 Conjugated Bilirubin (0.0-0.2) mg/dL 0.5 H AST (15-37) U/L 28 ALT (16-63) U/L 33 Alkaline Phosphatase (46-116) U/L 85 C-Reactive Protein (0.0-0.3) mg/dL > 25.00 H Total Protein (6.4-8.2) g/dL 6.0 L Albumin (3.4-5.0) g/dL 1.9 L Angiotensin Convert Enz (16 - 85) U/L Vitamin B12 (193-986) pg/mL Folate (8.6-20.0) ng/mL Procalcitonin ng/mL Urine Color (Yellow) Urine Clarity (Clear) Urine pH (5-8) Ur Specific [place] (1.005-1.025) Urine Protein (Negative) mg/dL Urine Ketones (Negative) mg/dL Urine Blood (Negative) Urine Nitrite (Negative) Urine Bilirubin (Negative) Urine Urobilinogen (Up TO 0.2) EU/dL Ur Leukocyte Esterase (Negative) Urine Glucose (Negative) mg/dL Lyme Disease Antibody (Negative) COVID-19 Source SARS-CoV-2 (PCR) (Negative) Influenza Type A (PCR) (Negative) Influenza Type B (PCR) (Negative) Urine Legionella Ag (Negative) RSV (PCR) (Negative) Add-On Test Request Range/Units 05/07/22 05/07/22 05/07/22 06:25 06:25 06:25 WBC (4.4-10.8) 10^3/uL RBC (4.36-5.78) 10^6/uL Hgb (13.5-17.5) g/dL Hct (40.0-50.0) % MCV (80-95) fL MCH (27.0-33.0) pg MCHC (32.0-36.0) % RDW (11.8-14.1) % Plt Count (130-400) 10^3/uL MPV (8.0-11.0) fL Immature Gran % Neutrophils % Lymphocytes % Monocytes % Eosinophils % Basophils % Nucleated RBC % (0.0-0.3) % Absolute Neutrophils (1.2-6.7) 10^3/uL Absolute Lymphocytes (1.2-3.4) 10^3/uL Absolute Monocytes (0.1-0.8) 10^3/uL Absolute Eosinophils (0.0-0.7) 10^3/uL Absolute Basophils (0.0-0.2) 10^3/uL PT (9.3-11.0) sec 10.9 INR (0.9-1.1) 1.1 VBG pH (7.31-7.41) VBG pCO2 (41-51) mmHg VBG pO2 mmHg VBG HCO3 (23-28) mmol/L VBG Total CO2 (24-29) mmol/L VBG O2 Saturation % VBG Base Excess (-2-3) mmol/L VBG Lactate (0.6-1.4) mmol/L Sodium (136-145) mmol/L Potassium (3.5-5.1) mmol/L Chloride (98-107) mmol/L Carbon Dioxide (21.0-32.0) mmol/L Anion Gap (3-11) mmol/L BUN (7-18) mg/dL Creatinine (0.70-1.30) mg/dL Estimated GFR/1.73 m2 (mL/min/1.73m2) Glucose (74-106) mg/dL Hemoglobin A1c (<5.7) % Calcium (8.5-10.1) mg/dL Phosphorus (2.6-4.7) mg/dL 2.6 Magnesium (1.8-2.4) mg/dL Iron (65-175) ug/dL TIBC (250-450) ug/dL Transferrin % Sat (20-55) % Ferritin (26-388) ng/mL Total Bilirubin (0.2-1.0) mg/dL Conjugated Bilirubin (0.0-0.2) mg/dL AST (15-37) U/L ALT (16-63) U/L Alkaline Phosphatase (46-116) U/L C-Reactive Protein (0.0-0.3) mg/dL Total Protein (6.4-8.2) g/dL Albumin (3.4-5.0) g/dL Angiotensin Convert Enz (16 - 85) U/L Vitamin B12 (193-986) pg/mL Folate (8.6-20.0) ng/mL Procalcitonin ng/mL Urine Color (Yellow) Urine Clarity (Clear) Urine pH (5-8) Ur Specific [place] (1.005-1.025) Urine Protein (Negative) mg/dL Urine Ketones (Negative) mg/dL Urine Blood (Negative) Urine Nitrite (Negative) Urine Bilirubin (Negative) Urine Urobilinogen (Up TO 0.2) EU/dL Ur Leukocyte Esterase (Negative) Urine Glucose (Negative) mg/dL Lyme Disease Antibody (Negative) COVID-19 Source SARS-CoV-2 (PCR) (Negative) Influenza Type A (PCR) (Negative) Influenza Type B (PCR) (Negative) Urine Legionella Ag (Negative) RSV (PCR) (Negative) Add-On Test Request DONE Imaging CT scan - chest: report reviewed and image reviewed
[2022-05-07] MEDS: Metoprolol CR 100 MG TABCR PO (08:34)
[2022-05-07] MEDS: Benzonatate 200 MG CAP PO ×3 (08:34→20:01)
[2022-05-07] MEDS: Insulin Aspart 300 UNITS/3 ML PEN SC ×3 (08:35→22:48)
[2022-05-07] MEDS: guaiFENesin 600 MG TABCR PO ×2 (08:35→20:01)
[2022-05-07] MEDS: Atorvastatin 40 MG TAB PO (08:35)
[2022-05-07] MEDS: Folic Acid 1 MG TAB PO (08:35)
--- NOTE | 2022-05-07 09:03 | ANES.PREOP_ITS ---
General Info Date of Service Date Performed: 05/07/22 Height: 5 ft 11 in Weight: 107 kg Body Mass Index (BMI): 32.8 Surgical Procedure: Operation Date: 05/07/22 12:10 Proposed Procedure Side Surgeon p Bronchoscopy w/ABEL Pinto MD Meds Allergies and Home Medications Allergies Allergy/AdvReac Type Severity Reaction Status Date / Time morphine Allergy Mild itchy Unverified 05/02/22 21:00 Home Medication Medication Instructions Recorded amlodipine 10 mg tablet 10 mg PO DAILY 05/21/13 glimepiride 4 mg tablet (Amaryl) 2 mg PO DAILY 05/21/13 metformin 500 mg tablet,extended 1,000 mg PO BID 05/21/13 release 24 hr atorvastatin 40 mg tablet 40 mg PO DAILY 05/02/22 azithromycin 250 mg tablet 250 mg PO DAILY 05/02/22 benzonatate 100 mg capsule 200 cap PO TID PRN PRN 05/02/22 cefdinir 300 mg capsule 300 mg PO BID 05/02/22 chlorthalidone 25 mg tablet 25 mg PO DAILY 05/02/22 dapagliflozin 5 mg tablet (Farxiga) 5 mg PO DAILY 05/02/22 losartan 100 mg tablet 100 mg PO DAILY 05/02/22 metoprolol succinate 100 mg 100 mg PO DAILY 05/03/22 tablet,extended release 24 hr (Toprol XL) Current Visit Medications: Current Medications Generic Name Dose Route Start Last Admin Trade Name Freq PRN Reason Stop Dose Admin Albuterol Sulfate 2.5 mg 05/04/22 12:05 05/07/22 06:42 Albuterol 2.5 Mg/3 Ml Inh Soln Vial UPD 2.5 mg Q2H PRN PRN Administration Atorvastatin Calcium 40 mg 05/03/22 08:30 05/07/22 08:35 Atorvastatin 40 Mg Tab PO 40 mg DAILY RAJENDRA Administration Baclofen 10 mg 05/04/22 16:40 05/06/22 23:16 Baclofen 10 Mg Tab PO 10 mg TID PRN PRN Administration Benzonatate 200 mg 05/03/22 14:00 05/07/22 08:34 Benzonatate 200 Mg Cap PO 200 mg TID RAJENDRA Administration Dextrose 0 gm 05/02/22 22:26 Glucose 40% Oral Solution 15 Gm/37.5 Gm Tube PO DIRECTED PRN Dextrose/Water 0 gm 05/02/22 22:26 Dextrose 50%-Water 25 Gm/50 Ml Syr IVP DIRECTED PRN Dimethicone/Zinc Oxide 0 gm 05/02/22 22:19 Brady Protect Cream 142 Gm Tube TP PRN PRN Enoxaparin Sodium 40 mg 05/03/22 08:30 05/06/22 07:55 Enoxaparin 40 Mg/0.4 Ml Syr SC 40 mg Q24H RAJENDRA Administration Folic Acid 1 mg 05/07/22 08:30 05/07/22 08:35 Folic Acid 1 Mg Tab PO 1 mg DAILY RAJENDRA Administration Guaifenesin 600 mg 05/03/22 20:00 05/07/22 08:35 Guaifenesin 600 Mg Tabcr PO 600 mg BID RAJENDRA Administration Guaifenesin/Codeine Phosphate 10 ml 05/03/22 01:36 05/07/22 02:51 Guaifenesin/Codeine Phosphate 10 Ml Cup PO 10 ml Q4H PRN PRN Administration Cefepime HCl 2 gm/ Sodium 100 mls @ 200 mls/hr 05/03/22 14:00 05/07/22 05:47 Chloride IVPB 200 mls/hr Q8H RAJENDRA Administration Acetaminophen 1,000 mg in 100 mls @ 400 mls/hr 05/03/22 22:59 05/07/22 07:59 Ofirmev IVPB 400 mls/hr Q6H PRN PRN Administration Doxycycline Hyclate 100 mg/ 100 mls @ 100 mls/hr 05/06/22 18:00 05/07/22 06:25 Sodium Chloride IVPB 100 mls/hr Q12H RAJENDRA Administration IV Miscellaneous Supplies 1 each 05/02/22 21:15 Iv Access IV DIRECTED [facility] Insulin Aspart 0 units 05/07/22 08:00 05/07/22 08:35 Insulin Aspart 300 Units/3 Ml Pen SC 2 unit Q6H RAJENDRA Administration Protocol Ketorolac Tromethamine 30 mg 05/04/22 12:31 05/07/22 08:36 Ketorolac 30 Mg/Ml Vial IVP 05/08/22 11:57 30 mg Q6H PRN PRN Administration Lidocaine 1 patch 05/04/22 12:00 05/06/22 12:06 Lidocaine 5% Patch TP 1 patch DAILY@1200 RAJENDRA Administration Lorazepam 0.5 mg 05/04/22 21:56 05/07/22 02:54 Lorazepam 0.5 Mg Tab PO 0.5 mg QID PRN PRN Administration Metoprolol Succinate 100 mg 05/03/22 08:30 05/07/22 08:34 Metoprolol Cr 100 Mg Tabcr PO 100 mg DAILY RAJENDRA Administration Miscellaneous 1 each 05/05/22 00:00 05/06/22 22:32 Patch Removal (Lidocaine) TP 1 each DAILY@0000 RAJENDRA Administration Ondansetron HCl 4 mg 05/05/22 17:01 05/06/22 18:38 Ondansetron 4 Mg/2 Ml Vial IVP 4 mg Q6H PRN PRN Administration Pt's Own 1 each 05/03/22 08:30 05/07/22 08:34 Dapagliflozin ( PO 1 each [facility]) 5mg Tablet DAILY RAJENDRA Administration Polyethylene Glycol 17 gm 05/02/22 22:19 05/06/22 16:45 Polyethylene Glycol 3350 17 Gm Packet PO 17 gm DAILY PRN PRN Administration Constipation Sodium Chloride 0 ml 05/02/22 21:02 05/07/22 08:34 Normal Saline Flush 10 Ml Syr IVP 10 ml PRN PRN Administration PFSH Active Problems Active Problems: Problem Status Onset Code Hyponatremia E87.1 Hypokalemia E87.6 Hyperbilirubinemia E80.6 Acute anemia D64.9 Discharge planning issues Z02.9 Pleuritic chest pain R07.81 Sepsis A41.9 DVT prophylaxis Z29.9 Hyperlipidemia E78.5 Essential hypertension I10 Diabetes mellitus type 2, noninsulin dependent E11.9 CAP (community acquired pneumonia) J18.9 Hypoxia R09.02 Tobacco Smoking/Tobacco Use Status: Never Alcohol Alcohol Intake: never Substance Use Substance use: Never Substance use type: does not use Vital Signs and Lab Results Vital Signs Most Recent Vital Signs in EMR: Most Recent Vital Signs Temp Pulse Resp BP Pulse Ox 38.8 C H 119 H 30 H 139/78 92 05/07/22 08:36 05/07/22 07:30 05/07/22 07:30 05/07/22 07:30 05/07/22 07:30 Point of Care Results Point of Care Results: Finger Stick Blood Glucose 205 05/07/22 08:35 Lab Results Result Diagrams: 05/07/22 06:25 05/07/22 06:25 Blood Type / Crossmatch: No Data to Display Complete Blood Count: White Blood Count 13.67 10^3/uL (4.4-10.8) H 05/07/22 06:25 Red Blood Count 3.90 10^6/uL (4.36-5.78) L 05/07/22 06:25 Hemoglobin 11.6 g/dL (13.5-17.5) L 05/07/22 06:25 Hematocrit 34.3 % (40.0-50.0) L 05/07/22 06:25 Platelet Count 286 10^3/uL (130-400) 05/07/22 06:25 Venous Blood Lactate 1.2 mmol/L (0.6-1.4) 05/02/22 21:30 Complete Metabolic Panel: Sodium Level 136 mmol/L (136-145) 05/07/22 06:25 Potassium Level 4.4 mmol/L (3.5-5.1) 05/07/22 06:25 Chloride Level 99 mmol/L (98-107) 05/07/22 06:25 Carbon Dioxide Level 24.7 mmol/L (21.0-32.0) 05/07/22 06:25 Blood Urea Nitrogen 25 mg/dL (7-18) H 05/07/22 06:25 Creatinine 1.0 mg/dL (0.70-1.30) 05/07/22 06:25 Estimated GFR/1.73 m2 >= 60.00 (mL/min/1.73m2) 05/07/22 06:25 Magnesium Level 2.3 mg/dL (1.8-2.4) 05/07/22 06:25 Calcium Level 8.3 mg/dL (8.5-10.1) L 05/07/22 06:25 Albumin 1.9 g/dL (3.4-5.0) L 05/07/22 06:25 Glucose Level 182 mg/dL (74-106) H 05/07/22 06:25 Hemoglobin A1c 7.0 % (<5.7) H 05/06/22 07:58 C-Reactive Protein > 25.00 mg/dL (0.0-0.3) H 05/07/22 06:25 Liver Function Panel: Alanine Aminotransferase (ALT/SGPT) 33 U/L (16-63) 05/07/22 06: 25 Aspartate Amino Transf (AST/SGOT) 28 U/L (15-37) 05/07/22 06:25 Coagulation Panel: INR International Normalized Ratio 1.1 (0.9-1.1) 05/07/22 06:2 5 Prothrombin Time 10.9 sec (9.3-11.0) 05/07/22 06:25 Cardiac Panel: No Data to Display Arterial Blood Gas: No Data to Display Venous Blood Gas: Venous Blood pH 7.43 (7.31-7.41) H 05/02/22 21:30 Venous Blood Partial Pressure O2 42 mmHg 05/02/22 21:30 Venous Blood Partial Pressure CO2 39 mmHg (41-51) L 05/02/22 21 :30 Venous Blood Oxygen Saturation 79 % 05/02/22 21:30 Venous Blood HCO3 26 mmol/L (23-28) 05/02/22 21:30 Venous Blood Base Excess 2 mmol/L (-2-3) 05/02/22 21:30 Venous Blood Total Carbon Dioxide 23 mmol/L (24-29) L 05/02/22 21:30 Pancreas Panel: No Data to Display Thyroid Panel: No Data to Display Infectious Disease: Coronavirus (COVID-19)(PCR) Negative (Negative) 05/06/22 08:25 Coronavirus 2019 Source Nasal/Nares 05/06/22 08:25 Influenza Virus Type A (PCR) Negative (Negative) 05/02/22 21:3 5 Influenza Virus Type B (PCR) Negative (Negative) 05/02/22 21:3 5 Respiratory Syncytial Virus (PCR) Negative (Negative) 05/02/22 21:35 HIV (1&2) Ag and Ab, 4th Generation Pending 05/04/22 13: 00 Blood Cultures: No Data to Display Toxicology Panel: No Data to Display Anesthesia Assessment and Plan Anesthesia History Personal History: No History of Anesthesia Complications Family History: No Family History of Anesthesia Complications Exercise Tolerance Exercise Tolerance: Metabolic Equivalents>4 Pertinent Negatives Pertinent Negatives: No Symptoms of GERD and No Major Cardiovascular Symptoms or Complaints Cardiac & Pulmonary Exam Cardiac Exam: Normal S1/S2 Heart Sounds Pulmonary Exam: Rhonchi Present Implantable Cardiac Device Does patient have a Pacemaker or an ICD?: No Airway Exam Known Difficult Airway: No Mallampati Class: 2 Mouth Opening: Normal (> 3cm) Thyromental Distance: Less than 3 cm Neck Range of Motion: Full ROM Neck Circumference: Normal Teeth Condition: Normal Dentition ASA Classification ASA Score: ASA 4 Emergency Case?: No NPO Status NPO Status: NPO Clears >2 hours, Solids >8 hours Anesthesia Plan Resuscitation Status: Full Code Anesthesia Technique: General Anesthesia Airway Planned: Endotracheal Tube Monitors Used: Standard Monitors Preoperative Comments:: Pt. sitting in chair with tachypnea but no obvious distress. Oxygen down from 4LPM to 2LPM, however remains febrile today. SIRS/Sepsis/Pneumonia. Health heart/kidney/brain. Discussed possibility of ICU admission or difficulty extubating/mechanical ventilation after the procedure. He states his knows his wishes.
[2022-05-07 11:49] LABS: HIV-1/2 Ag & Ab Screen Negative (Negative)
[2022-05-07] MEDS: Lactated Ringers 1,000 ML 30 ML IV (12:06)
[2022-05-07] MEDS: Lidocaine 1% Pres-Free 30 ML VIAL (12:23)
--- NOTE | 2022-05-07 12:35 | PAPNONF_PTH ---
PATIENT: Deidre Mcarthur LOC: ICU U#:[id number] AGE/SX: 57/M ROOM: ICU.219 RE05/02/[address]: Clarence Morales MD : 1965 BED: A DIS: 05/10/2022 SPEC #: [id number] RECD: 05/07/22 13:12 STATUS: GUADALUPE REQ #: [id number] MAULIK: 05/07/22 12:[address]: Clarence Morales DEPT: [facility] Cytology RECD BY: Margo Winston ENTERED: 05/07/22 13:13 SP TYPE: LUBNA BROWN DR: MD Maximiliano Jang Robert Tissues: 1 - BODY FLUID CYTO(NOT S/U/N/EM)[facility] 2 - BODY FLUID CYTO(SPUTUM/URINE)[facility] Procedures: BODY FLUID CYTO(NOT SPU/UR/NIP/ENDOM)[facility] BODY FLUID CYTO(URINE/SPUTUM) Comments: [id number]
--- NOTE | 2022-05-07 12:45 | CMPROGNOTE_ITS ---
- If Service Date Differs Date of service: 05/07/22 Time of Service: 12:45 Care Management Progress Note S/O: Deidre remains inpatient, broncoscopy scheduled today with [facility], Dr. Huitron, per MD Deidre continues to not improve from a pneumonia standpoint. [facility]; CM entered indicia with MD input and faxed to [facility] to advocate for inpatient status, awaiting response. CM continues to follow. A: 57 year old male admitted to [facility] 05/02/22 for Pneumonia. P: Deidre will return home when ready per MD. No additional services anticipated at this time, though he will continue to be evaluated for increased needs. He will follow up with his PCP and plan of care as prescribed.
[2022-05-07] MEDS: Lidocaine 2% Pres-Free 2 ML VIAL (13:32)
--- NOTE | 2022-05-07 13:52 | W.ANESPOSTOP ---
Postoperative Evaluation Date, Time and Location Date Performed: 05/07/22 Time Performed: 13:52 Patient Location: PACU Vital Signs Most Recent Imported Vital Signs: Most Recent Vital Signs Temp Pulse Resp BP Pulse Ox 36.8 C 118 H 22 125/76 92 05/07/22 13:16 05/07/22 13:30 05/07/22 13:30 05/07/22 13:30 05/07/22 13:42 Pain Score Most Recent Pain Score: Most Recent Pain Score Pain Level 0 05/07/22 02:37 Assessment Mental Status: Awake (Alert & Oriented to Patient Baseline) Airway and Respiratory Function: Patent airway with normal (patient baseline) respiratory exam Cardiovascular Function: Hemodynamically Stable Hydration Status: Adequately Hydrated Nausea & Vomiting: No Nausea or Vomiting Pain: Pt. Denies Any Pain Peripheral Nerve Block: Patient did not receive a nerve block Postoperative Comments:: Pt. on 4LPM oxygen to go back to his room. His coughing is much improved and he is eating ice chips.
--- NOTE | 2022-05-07 14:00 | ROE_ITS ---
Operative Note Operative Note PRE-OP DIAGNOSIS: Pneumonia POST-OP DIAGNOSIS: same PROCEDURE: Flexible bronchoscopy with BAL and bronchial washings Refer to Anesthesia Record Procedure Description: Bronchoscopy Indication:Non-resolving pneumonia Procedure performed: Flexible bronchoscopy with BAL and bronchial washings Sedation plan: General anesthesia Medications used: see seperate anesthesia documentation Informed consent was obtained after the risks and benefits or the procedure were discussed. Anesthesia intubated the patient. A proper and complete OR compliant time out was performed. The therapeutic 6.2mm Olympus bronchoscope was inserted through the endotracheal tube. The bronchoscope was inserted into the airways, were 2cc in total of 1% topical l idocaine was used the anesthetize the airways. The trachea was midline and without lesion or injury that could be visualized. The mucosa appeared normal and there were no signs of tracheomalacia. The terry was sharp. All bronchial subsegments were visualized within each lobe and showed normal anatomy. On the left in all lobes there was copious thin yellow secretions present originating from the distal airways. There was mild to moderate erythema present in the airways on the left, with the right side less affected. A bronchoalveolar lavage was performed in the lingula. A total of 120cc of saline was administered with a return of 90cc. The fluid was slightly cloudy in appearance with cellular debris and was pink and yellow tinged. There was no diffuse alveolar hemorrhage. The bronchoscope was then removed and the case terminated. The patient was taken to PACU in stable condition. Samples collected: Lingula BAL, bronchial washings Testing ordered:amylase, bacterial, fungal & AFB cultures, BAL differential, pathology with silver stain for PJP. Will also order anti-GM-CSF for potential PAP. Complications:None Xena Pinto MD Pulmonary & Critical Care Medicine
[2022-05-07] MEDS: PIPERACILLIN/TAZO 4.5 GM in Normal Saline 100 ML IVPB ×2 (16:17→20:10)
--- NOTE | 2022-05-07 20:59 | PGE_ITS ---
Date of Service Date of service: 05/07/22 Time of Service: 17:00 Assessment and Plan Assessment and plan (1) Sepsis: Status: Acute Assessment and plan: Due to PNA, present on admission, with hypoxia, requiring 4L of O2 by NC at this time. Afebrile since 08:36 this morning. S/p bronchoscopy today - tolerated well. Await bronchoscopy studies. Abx changed to zoxyn + doxycycline (day 5). Linezolid d/c'ed due to negative MRSA nares; cefepime d/c'ed today. If the patient is not better by Saturday, transfer to a tertiary care center will be pursued. Dr Pinto does not feel that the infiltrates on the CT/CXR are c/w sarcoidosis (lymphadenopathy might be, however). Sputum cx w/ nml byrn. Blood cultures negative. urine strep Ag negative. Negative legionella Ag. HIV negative. Trend CRP, procalcitonin. Discussed at length with Dr Pinto. (2) CAP (community acquired pneumonia): Status: Acute Assessment and plan: As above. No clear improvement. S/p bronchoscopy. Continue bronchodilators, antitussives, abx as above. Encourage pulmonary toilet. (3) Hypoxia: Status: Acute Assessment and plan: As above Should the patient's O2 requirement worsen tonight, we can try a humidified heated high flow cannula but should avoid CPAP/BiPAP tonight, per Dr Pinto. Target O2 sat >90%. (4) Pleuritic chest pain: Status: Resolved Assessment and plan: Continue toradol prn as well as tylenol. Antitussives. Baclofen for muscle spasms; lidocaine patches for the likely trapezius spasm which is contributing. (5) Acute anemia: Status: Acute Assessment and plan: Likely due to blood draws. No evidence of acute bleeding. Is folate deficient - replete. (6) Diabetes mellitus type 2, noninsulin dependent: Status: Chronic Assessment and plan: A1C 7.0. Continue SSI. Holding oral hypoglycemic agents due to possible interactions with linezolid. (7) Hyperbilirubinemia: Status: Acute Assessment and plan: In setting of acute illness. ?Gilbert's Consider tick illness. Lyme disease Ab negative, but the remainder of studies are pending. (8) Hypokalemia: Status: Resolved Assessment and plan: Recheck in am. (9) Hyponatremia: Status: Acute Assessment and plan: Better. Asymptomatic. Continue to hold diuretics. Recheck in am. (10) DVT prophylaxis: Status: Acute Assessment and plan: Resume enoxaparin tomorrow. (11) Discharge planning issues: Status: Acute Assessment and plan: Full code. Continues to require hospitalization. If no improvement by Saturday, would pursue transfer to a tertiary care facility. Discussed with Dr Pinto. Subjective Subjective Interval history since last seen: Mr Mcarthur is s/p bronchoscopy today. Tolerated well. Returned to his room on 4L of O2 by [place]. Reported not feeling well and having a lot of thoughts on his mind. Denied dizziness, chest pain, nausea. Does feel short of breath. Exam Narrative Exam Narrative: General: middle-aged male who is sitting up in a chair, on 4 L of O2 by NV, no visible dyspnea/tachypnea, groggy. HEENT: EOMI, MMM Heart: RRR, no m/r/g Lungs: expiratory wheezing and basilar rales on L; rales are worse today Abdomen: soft, nontender, nondistended Extremities: trace edema BLEs Objective Last Vital Signs Temp 37.1 C 05/07/22 19:56 Pulse 100 H 05/07/22 17:18 Resp 18 05/07/22 15:53 BP 141/81 H 05/07/22 15:53 Pulse Ox 91 L 05/07/22 17:18 Laboratory Results - last 24 hr 05/03/22 05/04/22 05/07/22 09:00 13:00 06:25 WBC RBC Hgb Hct MCV MCH MCHC RDW Plt Count MPV Immature Gran % Neutrophils % Lymphocytes % Monocytes % Eosinophils % Basophils % Nucleated RBC % Absolute Neutrophils Absolute Lymphocytes Absolute Monocytes Absolute Eosinophils Absolute Basophils PT INR Sodium 136 Potassium 4.4 Chloride 99 Carbon Dioxide 24.7 Anion Gap 12.3 H BUN 25 H Creatinine 1.0 Estimated GFR/1.73 m2 >= 60.00 Glucose 182 H Calcium 8.3 L Phosphorus Magnesium 2.3 Total Bilirubin Conjugated Bilirubin AST ALT Alkaline Phosphatase C-Reactive Protein > 25.00 H Total Protein Albumin HIV 1&2 Ag/Ab, 4th Gen Negative Ur Strep pneumoniae Ag Negative Add-On Test Request 07/18/22 07/18/22 07/18/22 06:25 06:25 06:25 WBC 13.67 H RBC 3.90 L Hgb 11.6 L Hct 34.3 L MCV 88 MCH 29.7 MCHC 33.8 RDW 13.8 Plt Count 286 MPV 8.9 Immature Gran % 1.2 Neutrophils % 84.4 Lymphocytes % 2.5 Monocytes % 10.0 Eosinophils % 1.5 Basophils % 0.4 Nucleated RBC % 0.0 Absolute Neutrophils 11.54 H Absolute Lymphocytes 0.34 L Absolute Monocytes 1.37 H Absolute Eosinophils 0.21 Absolute Basophils 0.05 PT 10.9 INR 1.1 Sodium Potassium Chloride Carbon Dioxide Anion Gap BUN Creatinine Estimated GFR/1.73 m2 Glucose Calcium Phosphorus Magnesium Total Bilirubin 1.0 Conjugated Bilirubin 0.5 H AST 28 ALT 33 Alkaline Phosphatase 85 C-Reactive Protein Total Protein 6.0 L Albumin 1.9 L HIV 1&2 Ag/Ab, 4th Gen Ur Strep pneumoniae Ag Add-On Test Request 05/07/22 05/07/22 06:25 06:25 WBC RBC Hgb Hct MCV MCH MCHC RDW Plt Count MPV Immature Gran % Neutrophils % Lymphocytes % Monocytes % Eosinophils % Basophils % Nucleated RBC % Absolute Neutrophils Absolute Lymphocytes Absolute Monocytes Absolute Eosinophils Absolute Basophils PT INR Sodium Potassium Chloride Carbon Dioxide Anion Gap BUN Creatinine Estimated GFR/1.73 m2 Glucose Calcium Phosphorus 2.6 Magnesium Total Bilirubin Conjugated Bilirubin AST ALT Alkaline Phosphatase C-Reactive Protein Total Protein Albumin HIV 1&2 Ag/Ab, 4th Gen Ur Strep pneumoniae Ag Add-On Test Request DONE PAWSS Have you Been Recently Intoxicated or Drunk Within the Last 30 days?: No Have you Ever Experienced Previous Episodes of Alcohol Withdrawal?: No Have you ever Experienced Withdrawal Seizures?: No Have you ever Experienced Delirium Tremens(DT)s?: No Have you ever undergone Alcohol Rehabilitation Treatment (i.e, inpt ot outpati ent treatment programs)?: No Have you ever Experienced Blackouts?: No Have you ever Combined Alcohol with other Downers within the last 90 days?: No Have you ever Combined Alcohol with any other Substance of Abuse during the last 90 days?: No Positive Blood Alcohol level on Presentation? [PCS.BAL]: No Evidence of Increased Autonomic Activity (i.e. HR>120, tremor, sweating, agitation, nausea)?: No Result: 0
[2022-05-07 22:11] LABS: Rheumatoid Factor 12.9 IU/mL (<12.0)
[2022-05-08] VITALS (50 sets, daily range): BP systolic 115–155; BP diastolic 68–85; PULSE 97–128; RESP 2–36; TEMP 34–39.1; O2SAT 88–98
[2022-05-08] MEDS: ACETAMINOPHEN 1,000 MG/100 ML BTL 400 MG IVPB ×3 (00:44→15:39)
[2022-05-08] MEDS: guaiFENesin/CODEINE PHOSPHATE 10 ML CUP PO ×3 (01:28→12:00)
[2022-05-08] MEDS: Baclofen 10 MG TAB PO ×3 (01:28→16:39)
[2022-05-08] MEDS: PIPERACILLIN/TAZO 4.5 GM in Normal Saline 100 ML IVPB ×4 (01:28→20:55)
[2022-05-08 05:15] LABS: Anion Gap 9.2 mmol/L (3-11); BUN 22 mg/dL (7-18); CO2 25.8 mmol/L (21.0-32.0); CREATININE 0.9 mg/dL (0.70-1.30); Calcium 7.8 mg/dL (8.5-10.1); Chloride 98 mmol/L (98-107); Glucose 164 mg/dL (74-106); Magnesium 2.2 mg/dL (1.8-2.4); Potassium 4.5 mmol/L (3.5-5.1); Sodium 133 mmol/L (136-145)
[2022-05-08 05:32] LABS: Abs Immature Grans 0.19 10^3/uL (0.0-0.06); Absolute Basophil Count 0.05 10^3/uL (0.0-0.2); Absolute Lymphocyte Count 0.39 10^3/uL (1.2-3.4); Absolute Monocyte Count 1.63 10^3/uL (0.1-0.8); Basophils % 0.3; Eosinophils % 0.7; HCT 35.5 % (40.0-50.0); HGB 11.8 g/dL (13.5-17.5); Immature Grans % 1.3; Lymphocytes % 2.6; MCH 29.7 pg (27.0-33.0); MCHC 33.2 % (32.0-36.0); MCV 89 fL (80-95); MPV 8.6 fL (8.0-11.0); Monocytes % 10.8; Neutrophils % 84.3; Platelet Count 308 10^3/uL (130-400); RBC 3.97 10^6/uL (4.36-5.78); RDW 13.8 % (11.8-14.1); RDW-SD 45.3 fL; WBC 15.08 10^3/uL (4.4-10.8)
[2022-05-08 05:34] LABS: C-Reactive Protein > 25.00 mg/dL (0.0-0.3)
[2022-05-08 05:38] LABS: Procalcitonin 0.6 ng/mL
[2022-05-08 05:42] LABS: Absolute Eosinophil Count 0.11 10^3/uL (0.0-0.7); Absolute Neutrophil Count 12.71 10^3/uL (1.2-6.7)
[2022-05-08] MEDS: DOXYCYCLINE 100 MG in Normal Saline 100 ML IVPB ×2 (05:51→17:28)
[2022-05-08] MEDS: Ketorolac 30 MG/ML VIAL IVP (05:51)
[2022-05-08 05:57] LABS: Diff Comment Agrees w/ Instrument; RBC Morphology Normal
[2022-05-08] MEDS: LORazepam 0.5 MG TAB PO ×3 (06:09→14:43)
--- NOTE | 2022-05-08 07:05 | PGE_ITS ---
Assessment and Plan Assessment and plan (1) Sepsis: Status: Acute (2) CAP (community acquired pneumonia): Status: Acute (3) Hypoxia: Status: Acute Assessment and plan: This is a 57 yo otherwise healthy man admitted for a multilobar pneumonia. He has been on IV antibiotics for several days without significant improvement. He has had 2 sputum cultures but this returned as normal bryn. His bronchoscopy was not classic for infection, but he remains febrile and his imaging is not improving, and seems to be worsening on the other side so we will continue to antibiotics. We will be aggressive about airway clearance. We will await for the bronchoscopy results, however the prelim bacterial culture was negative for bacteria but did find neutrophils present. Given the appearance of the bronchial fluid I had concern for an esophageal fistula or possibly a bronchobiliary fistula (although these are rare, and radiology does not see any fistula and infiltrate started on left - wrong side for biliary issue). Another possibility is PAP, which is also very rare, and imaging is not classic for this, but the BAL was relative frothy. After discussion with [facility], I will start empiric treatment with hopefully itraconazole - working with pharmacy to see if we have this. Multilobar infiltrates - continue Zosyn and doxy - would add itraconazole or ketoconazole empirically - HIV negative - f/u Fungitell - f/u strep pneumo urine antigen - blood cultures - NGTD - agree with Antonio and IS - add Volera for more airway clearance - agree with prn albuterol nebs - ID at [facility] was consulted with no additional recommendations aside from stopping the Linezolid - bronchoscopy with atypical findings for pneumonia - f/u bronch studies - pathology, silver stain, bacterial, fungal and AFB cultures, fluid amylase, BAL diff and fluid bilirubin - anti-GM-CSF serum testing today for PAP - will discuss care with colleague from [facility] - recommended empiric blasto treatment - getting a secondary read on his Chest CT from [facility] - attempted to transfer to [facility] but they are at capacity and are only accepting phone calls if patient need an intervention within 24 hours General Date Of Service Date of service: 05/08/22 Time of Service: 07:05 Reason for Consult: Non-resolving pneumonia Subjective 24 Hour Events: Deidre underwent bronchoscopy yesterday. His CXR does not look any better when compared to prior. He was still febrile overnight. He still feels unwell and is strongly requesting transfer. I called [facility] today but they are beyond capacity to the point that they are not taking calls even for transfer unless a patient needs an interventional procedure. I spoke with [facility] pulmonary who suggested blasto is possible and thinks we could empirically give itraconizole or voriconizole. He also mentioned they would not do anything acutely for him differently and stated my diagnostic work up thus far is thorough. He recommended as I suspected, to await the bronchoscopy results. Exam Narrative Exam Narrative: Gen: toxic appearing, normal respiratory effort, well-nourished HENT: PERRL Chest: No respiratory distress, normal appearance of chest, clear to auscultation bilaterally, scattered crackles, normal inspiratory effort Heart: regular rate and rhythym, no murmurs, rubs or gallops Abdomen: Non-distended, soft, non tender Extremities: No clubbing, edema, cyanosis, rashes Neuro: AAOx3 , non focal Psych: cooperative, appropriate mental affect Objective Last Vital Signs Temp 36.7 C 05/08/22 02:52 Pulse 104 H 05/08/22 02:52 Resp 20 05/08/22 02:52 BP 153/85 H 05/08/22 00:44 Pulse Ox 92 05/08/22 02:52 Laboratory Results - last 24 hr 05/03/22 05/04/22 05/07/22 09:00 13:00 06:25 WBC RBC Hgb Hct MCV MCH MCHC RDW Plt Count MPV Immature Gran % Neutrophils % Lymphocytes % Monocytes % Eosinophils % Basophils % Nucleated RBC % Absolute Neutrophils Absolute Lymphocytes Absolute Monocytes Absolute Eosinophils Absolute Basophils RBC Morphology PT INR Sodium Potassium Chloride Carbon Dioxide Anion Gap BUN Creatinine Estimated GFR/1.73 m2 Glucose Calcium Phosphorus Magnesium Total Bilirubin Conjugated Bilirubin AST ALT Alkaline Phosphatase C-Reactive Protein > 25.00 H Total Protein Albumin Procalcitonin Rheumatoid Factor HIV 1&2 Ag/Ab, 4th Gen Negative Ur Strep pneumoniae Ag Negative Add-On Test Request 05/07/22 05/07/22 05/07/22 06:25 06:25 06:25 WBC RBC Hgb Hct MCV MCH MCHC RDW Plt Count MPV Immature Gran % Neutrophils % Lymphocytes % Monocytes % Eosinophils % Basophils % Nucleated RBC % Absolute Neutrophils Absolute Lymphocytes Absolute Monocytes Absolute Eosinophils Absolute Basophils RBC Morphology PT 10.9 INR 1.1 Sodium Potassium Chloride Carbon Dioxide Anion Gap BUN Creatinine Estimated GFR/1.73 m2 Glucose Calcium Phosphorus Magnesium Total Bilirubin 1.0 Conjugated Bilirubin 0.5 H AST 28 ALT 33 Alkaline Phosphatase 85 C-Reactive Protein Total Protein 6.0 L Albumin 1.9 L Procalcitonin Rheumatoid Factor HIV 1&2 Ag/Ab, 4th Gen Ur Strep pneumoniae Ag Add-On Test Request DONE 05/07/22 05/07/22 05/08/22 06:25 10:10 04:56 WBC RBC Hgb Hct MCV MCH MCHC RDW Plt Count MPV Immature Gran % Neutrophils % Lymphocytes % Monocytes % Eosinophils % Basophils % Nucleated RBC % Absolute Neutrophils Absolute Lymphocytes Absolute Monocytes Absolute Eosinophils Absolute Basophils RBC Morphology PT INR Sodium 133 L Potassium 4.5 Chloride 98 Carbon Dioxide 25.8 Anion Gap 9.2 BUN 22 H Creatinine 0.9 Estimated GFR/1.73 m2 >= 60.00 Glucose 164 H Calcium 7.8 L Phosphorus 2.6 Magnesium 2.2 Total Bilirubin Conjugated Bilirubin AST ALT Alkaline Phosphatase C-Reactive Protein > 25.00 H Total Protein Albumin Procalcitonin Rheumatoid Factor 12.9 H HIV 1&2 Ag/Ab, 4th Gen Ur Strep pneumoniae Ag Add-On Test Request 05/08/22 05/08/22 04:56 04:56 WBC 15.08 H RBC 3.97 L Hgb 11.8 L Hct 35.5 L MCV 89 MCH 29.7 MCHC 33.2 RDW 13.8 Plt Count 308 MPV 8.6 Immature Gran % 1.3 Neutrophils % 84.3 Lymphocytes % 2.6 Monocytes % 10.8 Eosinophils % 0.7 Basophils % 0.3 Nucleated RBC % 0.0 Absolute Neutrophils 12.71 H Absolute Lymphocytes 0.39 L Absolute Monocytes 1.63 H Absolute Eosinophils 0.11 Absolute Basophils 0.05 RBC Morphology Normal PT INR Sodium Potassium Chloride Carbon Dioxide Anion Gap BUN Creatinine Estimated GFR/1.73 m2 Glucose Calcium Phosphorus Magnesium Total Bilirubin Conjugated Bilirubin AST ALT Alkaline Phosphatase C-Reactive Protein Total Protein Albumin Procalcitonin 0.6 Rheumatoid Factor HIV 1&2 Ag/Ab, 4th Gen Ur Strep pneumoniae Ag Add-On Test Request Results Medications Medications: Active Medications Generic Name Dose Route Start Last Admin Trade Name Freq PRN Reason Stop Dose Admin Albuterol Sulfate 2.5 mg 05/04/22 12:05 05/07/22 17:17 Albuterol 2.5 Mg/3 Ml Inh Soln Vial UPD 2.5 mg Q2H PRN PRN Administration Atorvastatin Calcium 40 mg 05/03/22 08:30 05/07/22 08:35 Atorvastatin 40 Mg Tab PO 40 mg DAILY RAJENDRA Administration Baclofen 10 mg 05/04/22 16:40 05/08/22 01:28 Baclofen 10 Mg Tab PO 10 mg TID PRN PRN Administration Benzonatate 200 mg 05/03/22 14:00 05/07/22 20:01 Benzonatate 200 Mg Cap PO 200 mg TID RAJENDRA Administration Dextrose 0 gm 05/02/22 22:26 Glucose 40% Oral Solution 15 Gm/37.5 Gm Tube PO DIRECTED PRN Dextrose/Water 0 gm 05/02/22 22:26 Dextrose 50%-Water 25 Gm/50 Ml Syr IVP DIRECTED PRN Dimethicone/Zinc Oxide 0 gm 05/02/22 22:19 Brady Protect Cream 142 Gm Tube TP PRN PRN Enoxaparin Sodium 40 mg 05/03/22 08:30 05/06/22 07:55 Enoxaparin 40 Mg/0.4 Ml Syr SC 40 mg Q24H RAJENDRA Administration Folic Acid 1 mg 05/07/22 08:30 05/07/22 08:35 Folic Acid 1 Mg Tab PO 1 mg DAILY RAJENDRA Administration Guaifenesin 600 mg 05/03/22 20:00 05/07/22 20:01 Guaifenesin 600 Mg Tabcr PO 600 mg BID RAJENDRA Administration Guaifenesin/Codeine Phosphate 10 ml 05/03/22 01:36 05/08/22 05:51 Guaifenesin/Codeine Phosphate 10 Ml Cup PO 10 ml Q4H PRN PRN Administration Acetaminophen 1,000 mg in 100 mls @ 400 mls/hr 05/03/22 22:59 05/08/22 01:10 Ofirmev IVPB Infused Q6H PRN PRN Infusion Doxycycline Hyclate 100 mg/ 100 mls @ 100 mls/hr 05/06/22 18:00 05/08/22 05:51 Sodium Chloride IVPB 100 mls/hr Q12H RAJENDRA Administration Ringer's Solution 1,000 mls @ 30 mls/hr 05/07/22 12:30 05/07/22 12:40 IV 30 mls/hr INFUSION RAJENDRA Infusion Piperacillin Sod/Tazobactam 100 mls @ 200 mls/hr 05/07/22 14:00 05/08/22 02:06 Sod 4.5 gm/ Sodium Chloride IVPB Infused Q6H [facility] Infusion Protocol IV Miscellaneous Supplies 1 each 05/02/22 21:15 Iv Access IV DIRECTED [facility] Insulin Aspart 0 units 05/07/22 17:00 05/07/22 22:48 Insulin Aspart 300 Units/3 Ml Pen SC 1 units 0800,1200,1700,2200 [facility] Administration Protocol Ketorolac Tromethamine 30 mg 05/04/22 12:31 05/08/22 05:51 Ketorolac 30 Mg/Ml Vial IVP 05/08/22 11:57 30 mg Q6H PRN PRN Administration Lidocaine 1 patch 05/04/22 12:00 05/07/22 15:04 Lidocaine 5% Patch TP Not Given DAILY@1200 [facility] Lorazepam 0.5 mg 05/04/22 21:56 05/08/22 06:09 Lorazepam 0.5 Mg Tab PO 0.5 mg QID PRN PRN Administration Metoprolol Succinate 100 mg 05/03/22 08:30 05/07/22 08:34 Metoprolol Cr 100 Mg Tabcr PO 100 mg DAILY RAJENDRA Administration Miscellaneous 1 each 05/05/22 00:00 05/08/22 00:03 Patch Removal (Lidocaine) TP Not Given DAILY@0000 [facility] Ondansetron HCl 4 mg 05/05/22 17:01 05/06/22 18:38 Ondansetron 4 Mg/2 Ml Vial IVP 4 mg Q6H PRN PRN Administration Pt's Own 1 each 05/03/22 08:30 05/07/22 08:34 Dapagliflozin ( PO 1 each [facility]) 5mg Tablet DAILY RAJENDRA Administration Polyethylene Glycol 17 gm 05/02/22 22:19 05/06/22 16:45 Polyethylene Glycol 3350 17 Gm Packet PO 17 gm DAILY PRN PRN Administration Constipation Sodium Chloride 0 ml 05/02/22 21:02 05/07/22 15:25 Normal Saline Flush 10 Ml Syr IVP 10 ml PRN PRN Administration Allergies morphine Allergy (Mild, Unverified 05/02/22 21:00) itchy Labs Result Diagrams: 05/08/22 04:56 05/08/22 04:56 Labs: 05/02/22 21:47 Blood Blood Culture - Final NO GROWTH 120 HOURS 05/02/22 21:30 Blood Blood Culture - Final NO GROWTH 120 HOURS 05/04/22 13:20 Blood Blood Culture - Preliminary NO GROWTH 72 HOURS 05/04/22 13:10 Blood Blood Culture - Preliminary NO GROWTH 72 HOURS 05/04/22 21:30 Sputum Sputum Culture - Preliminary Normal Bryn 05/04/22 21:30 Sputum Gram Stain - Final 05/03/22 09:45 Sputum Sputum Culture - Final Normal Bryn 05/03/22 09:45 Sputum Gram Stain - Final 05/04/22 13:50 Nose MRSA Screen - Final Laboratory Tests Range/Units 05/02/22 05/02/22 05/02/22 21:30 21:30 21:30 WBC (4.4-10.8) 10^3/uL 9.45 RBC (4.36-5.78) 10^6/uL 4.04 L Hgb (13.5-17.5) g/dL 12.4 L Hct (40.0-50.0) % 35.0 L MCV (80-95) fL 87 MCH (27.0-33.0) pg 30.7 MCHC (32.0-36.0) % 35.4 RDW (11.8-14.1) % 13.2 Plt Count (130-400) 10^3/uL 190 MPV (8.0-11.0) fL 8.7 Immature Gran % 0.5 Neutrophils % 85.7 Lymphocytes % 3.2 Monocytes % 9.8 Eosinophils % 0.5 Basophils % 0.3 Nucleated RBC % (0.0-0.3) % 0.0 Absolute Neutrophils (1.2-6.7) 10^3/uL 8.09 H Absolute Lymphocytes (1.2-3.4) 10^3/uL 0.30 L Absolute Monocytes (0.1-0.8) 10^3/uL 0.93 H Absolute Eosinophils (0.0-0.7) 10^3/uL 0.05 Absolute Basophils (0.0-0.2) 10^3/uL 0.03 RBC Morphology PT (9.3-11.0) sec INR (0.9-1.1) VBG pH (7.31-7.41) VBG pCO2 (41-51) mmHg VBG pO2 mmHg VBG HCO3 (23-28) mmol/L VBG Total CO2 (24-29) mmol/L VBG O2 Saturation % VBG Base Excess (-2-3) mmol/L VBG Lactate (0.6-1.4) mmol/L 1.2 Sodium (136-145) mmol/L 133 L Potassium (3.5-5.1) mmol/L 3.3 L Chloride (98-107) mmol/L 96 L Carbon Dioxide (21.0-32.0) mmol/L 25.2 Anion Gap (3-11) mmol/L 11.8 H BUN (7-18) mg/dL 25 H Creatinine (0.70-1.30) mg/dL 1.0 Estimated GFR/1.73 m2 (mL/min/1.73m2) >= 60.00 Glucose (74-106) mg/dL 146 H Hemoglobin A1c (<5.7) % Calcium (8.5-10.1) mg/dL 8.9 Phosphorus (2.6-4.7) mg/dL Magnesium (1.8-2.4) mg/dL 1.9 Iron (65-175) ug/dL TIBC (250-450) ug/dL Transferrin % Sat (20-55) % Ferritin (26-388) ng/mL Total Bilirubin (0.2-1.0) mg/dL 1.5 H Conjugated Bilirubin (0.0-0.2) mg/dL AST (15-37) U/L 17 ALT (16-63) U/L 26 Alkaline Phosphatase (46-116) U/L 71 C-Reactive Protein (0.0-0.3) mg/dL Total Protein (6.4-8.2) g/dL 6.8 Albumin (3.4-5.0) g/dL 2.6 L Angiotensin Convert Enz (16 - 85) U/L Vitamin B12 (193-986) pg/mL Folate (8.6-20.0) ng/mL Procalcitonin ng/mL 0.2 Urine Color (Yellow) Urine Clarity (Clear) Urine pH (5-8) Ur Specific [place] (1.005-1.025) Urine Protein (Negative) mg/dL Urine Ketones (Negative) mg/dL Urine Blood (Negative) Urine Nitrite (Negative) Urine Bilirubin (Negative) Urine Urobilinogen (Up TO 0.2) EU/dL Ur Leukocyte Esterase (Negative) Urine Glucose (Negative) mg/dL Rheumatoid Factor (<12.0) IU/mL Lyme Disease Antibody (Negative) COVID-19 Source SARS-CoV-2 (PCR) (Negative) HIV 1&2 Ag/Ab, 4th Gen (Negative) Influenza Type A (PCR) (Negative) Influenza Type B (PCR) (Negative) Urine Legionella Ag (Negative) RSV (PCR) (Negative) Ur Strep pneumoniae Ag (Negative) Add-On Test Request Range/Units 05/02/22 05/02/22 05/02/22 21:30 21:30 21:35 WBC (4.4-10.8) 10^3/uL RBC (4.36-5.78) 10^6/uL Hgb (13.5-17.5) g/dL Hct (40.0-50.0) % MCV (80-95) fL MCH (27.0-33.0) pg MCHC (32.0-36.0) % RDW (11.8-14.1) % Plt Count (130-400) 10^3/uL MPV (8.0-11.0) fL Immature Gran % Neutrophils % Lymphocytes % Monocytes % Eosinophils % Basophils % Nucleated RBC % (0.0-0.3) % Absolute Neutrophils (1.2-6.7) 10^3/uL Absolute Lymphocytes (1.2-3.4) 10^3/uL Absolute Monocytes (0.1-0.8) 10^3/uL Absolute Eosinophils (0.0-0.7) 10^3/uL Absolute Basophils (0.0-0.2) 10^3/uL RBC Morphology PT (9.3-11.0) sec INR (0.9-1.1) VBG pH (7.31-7.41) 7.43 H VBG pCO2 (41-51) mmHg 39 L VBG pO2 mmHg 42 VBG HCO3 (23-28) mmol/L 26 VBG Total CO2 (24-29) mmol/L 23 L VBG O2 Saturation % 79 VBG Base Excess (-2-3) mmol/L 2 VBG Lactate (0.6-1.4) mmol/L Sodium (136-145) mmol/L Potassium (3.5-5.1) mmol/L Chloride (98-107) mmol/L Carbon Dioxide (21.0-32.0) mmol/L Anion Gap (3-11) mmol/L BUN (7-18) mg/dL Creatinine (0.70-1.30) mg/dL Estimated GFR/1.73 m2 (mL/min/1.73m2) Glucose (74-106) mg/dL Hemoglobin A1c (<5.7) % Calcium (8.5-10.1) mg/dL Phosphorus (2.6-4.7) mg/dL Magnesium (1.8-2.4) mg/dL Iron (65-175) ug/dL TIBC (250-450) ug/dL Transferrin % Sat (20-55) % Ferritin (26-388) ng/mL Total Bilirubin (0.2-1.0) mg/dL Conjugated Bilirubin (0.0-0.2) mg/dL AST (15-37) U/L ALT (16-63) U/L Alkaline Phosphatase (46-116) U/L C-Reactive Protein (0.0-0.3) mg/dL Total Protein (6.4-8.2) g/dL Albumin (3.4-5.0) g/dL Angiotensin Convert Enz (16 - 85) U/L Vitamin B12 (193-986) pg/mL Folate (8.6-20.0) ng/mL Procalcitonin ng/mL Urine Color (Yellow) Urine Clarity (Clear) Urine pH (5-8) Ur Specific [place] (1.005-1.025) Urine Protein (Negative) mg/dL Urine Ketones (Negative) mg/dL Urine Blood (Negative) Urine Nitrite (Negative) Urine Bilirubin (Negative) Urine Urobilinogen (Up TO 0.2) EU/dL Ur Leukocyte Esterase (Negative) Urine Glucose (Negative) mg/dL Rheumatoid Factor (<12.0) IU/mL Lyme Disease Antibody (Negative) COVID-19 Source Nasopharynx SARS-CoV-2 (PCR) (Negative) Negative HIV 1&2 Ag/Ab, 4th Gen (Negative) Influenza Type A (PCR) (Negative) Negative Influenza Type B (PCR) (Negative) Negative Urine Legionella Ag (Negative) RSV (PCR) (Negative) Negative Ur Strep pneumoniae Ag (Negative) Add-On Test Request DONE Range/Units 05/03/22 05/03/22 05/03/22 00:00 08:18 08:18 WBC (4.4-10.8) 10^3/uL 10.28 RBC (4.36-5.78) 10^6/uL 3.26 L Hgb (13.5-17.5) g/dL 9.8 L D Hct (40.0-50.0) % 29.0 L MCV (80-95) fL 89 MCH (27.0-33.0) pg 30.1 MCHC (32.0-36.0) % 33.8 RDW (11.8-14.1) % 13.3 Plt Count (130-400) 10^3/uL 204 MPV (8.0-11.0) fL 9.0 Immature Gran % 0.7 Neutrophils % 82.0 Lymphocytes % 4.2 Monocytes % 11.9 Eosinophils % 1.0 Basophils % 0.2 Nucleated RBC % (0.0-0.3) % 0.0 Absolute Neutrophils (1.2-6.7) 10^3/uL 8.44 H Absolute Lymphocytes (1.2-3.4) 10^3/uL 0.43 L Absolute Monocytes (0.1-0.8) 10^3/uL 1.22 H Absolute Eosinophils (0.0-0.7) 10^3/uL 0.10 Absolute Basophils (0.0-0.2) 10^3/uL 0.02 RBC Morphology PT (9.3-11.0) sec INR (0.9-1.1) VBG pH (7.31-7.41) VBG pCO2 (41-51) mmHg VBG pO2 mmHg VBG HCO3 (23-28) mmol/L VBG Total CO2 (24-29) mmol/L VBG O2 Saturation % VBG Base Excess (-2-3) mmol/L VBG Lactate (0.6-1.4) mmol/L Sodium (136-145) mmol/L 134 L Potassium (3.5-5.1) mmol/L 3.4 L Chloride (98-107) mmol/L 96 L Carbon Dioxide (21.0-32.0) mmol/L 28.0 Anion Gap (3-11) mmol/L 10.0 BUN (7-18) mg/dL 22 H Creatinine (0.70-1.30) mg/dL 1.0 Estimated GFR/1.73 m2 (mL/min/1.73m2) >= 60.00 Glucose (74-106) mg/dL 165 H Hemoglobin A1c (<5.7) % Calcium (8.5-10.1) mg/dL 8.5 Phosphorus (2.6-4.7) mg/dL Magnesium (1.8-2.4) mg/dL 1.9 Iron (65-175) ug/dL TIBC (250-450) ug/dL Transferrin % Sat (20-55) % Ferritin (26-388) ng/mL Total Bilirubin (0.2-1.0) mg/dL Conjugated Bilirubin (0.0-0.2) mg/dL AST (15-37) U/L ALT (16-63) U/L Alkaline Phosphatase (46-116) U/L C-Reactive Protein (0.0-0.3) mg/dL Total Protein (6.4-8.2) g/dL Albumin (3.4-5.0) g/dL Angiotensin Convert Enz (16 - 85) U/L 21 Vitamin B12 (193-986) pg/mL Folate (8.6-20.0) ng/mL Procalcitonin ng/mL Urine Color (Yellow) Urine Clarity (Clear) Urine pH (5-8) Ur Specific [place] (1.005-1.025) Urine Protein (Negative) mg/dL Urine Ketones (Negative) mg/dL Urine Blood (Negative) Urine Nitrite (Negative) Urine Bilirubin (Negative) Urine Urobilinogen (Up TO 0.2) EU/dL Ur Leukocyte Esterase (Negative) Urine Glucose (Negative) mg/dL Rheumatoid Factor (<12.0) IU/mL Lyme Disease Antibody (Negative) COVID-19 Source SARS-CoV-2 (PCR) (Negative) HIV 1&2 Ag/Ab, 4th Gen (Negative) Influenza Type A (PCR) (Negative) Influenza Type B (PCR) (Negative) Urine Legionella Ag (Negative) RSV (PCR) (Negative) Ur Strep pneumoniae Ag (Negative) Add-On Test Request Range/Units 05/03/22 05/03/22 05/03/22 08:18 08:18 09:00 WBC (4.4-10.8) 10^3/uL RBC (4.36-5.78) 10^6/uL Hgb (13.5-17.5) g/dL Hct (40.0-50.0) % MCV (80-95) fL MCH (27.0-33.0) pg MCHC (32.0-36.0) % RDW (11.8-14.1) % Plt Count (130-400) 10^3/uL MPV (8.0-11.0) fL Immature Gran % Neutrophils % Lymphocytes % Monocytes % Eosinophils % Basophils % Nucleated RBC % (0.0-0.3) % Absolute Neutrophils (1.2-6.7) 10^3/uL Absolute Lymphocytes (1.2-3.4) 10^3/uL Absolute Monocytes (0.1-0.8) 10^3/uL Absolute Eosinophils (0.0-0.7) 10^3/uL Absolute Basophils (0.0-0.2) 10^3/uL RBC Morphology PT (9.3-11.0) sec INR (0.9-1.1) VBG pH (7.31-7.41) VBG pCO2 (41-51) mmHg VBG pO2 mmHg VBG HCO3 (23-28) mmol/L VBG Total CO2 (24-29) mmol/L VBG O2 Saturation % VBG Base Excess (-2-3) mmol/L VBG Lactate (0.6-1.4) mmol/L Sodium (136-145) mmol/L Potassium (3.5-5.1) mmol/L Chloride (98-107) mmol/L Carbon Dioxide (21.0-32.0) mmol/L Anion Gap (3-11) mmol/L BUN (7-18) mg/dL Creatinine (0.70-1.30) mg/dL Estimated GFR/1.73 m2 (mL/min/1.73m2) Glucose (74-106) mg/dL Hemoglobin A1c (<5.7) % Calcium (8.5-10.1) mg/dL Phosphorus (2.6-4.7) mg/dL Magnesium (1.8-2.4) mg/dL Iron (65-175) ug/dL TIBC (250-450) ug/dL Transferrin % Sat (20-55) % Ferritin (26-388) ng/mL Total Bilirubin (0.2-1.0) mg/dL 1.3 H Conjugated Bilirubin (0.0-0.2) mg/dL 0.6 H AST (15-37) U/L 19 ALT (16-63) U/L 25 Alkaline Phosphatase (46-116) U/L 69 C-Reactive Protein (0.0-0.3) mg/dL Total Protein (6.4-8.2) g/dL 6.4 Albumin (3.4-5.0) g/dL 2.5 L Angiotensin Convert Enz (16 - 85) U/L Vitamin B12 (193-986) pg/mL Folate (8.6-20.0) ng/mL Procalcitonin ng/mL Urine Color (Yellow) Urine Clarity (Clear) Urine pH (5-8) Ur Specific [place] (1.005-1.025) Urine Protein (Negative) mg/dL Urine Ketones (Negative) mg/dL Urine Blood (Negative) Urine Nitrite (Negative) Urine Bilirubin (Negative) Urine Urobilinogen (Up TO 0.2) EU/dL Ur Leukocyte Esterase (Negative) Urine Glucose (Negative) mg/dL Rheumatoid Factor (<12.0) IU/mL Lyme Disease Antibody (Negative) Negative COVID-19 Source SARS-CoV-2 (PCR) (Negative) HIV 1&2 Ag/Ab, 4th Gen (Negative) Influenza Type A (PCR) (Negative) Influenza Type B (PCR) (Negative) Urine Legionella Ag (Negative) Negative RSV (PCR) (Negative) Ur Strep pneumoniae Ag (Negative) Add-On Test Request Range/Units 05/03/22 05/03/22 05/03/22 09:00 09:00 14:05 WBC (4.4-10.8) 10^3/uL RBC (4.36-5.78) 10^6/uL Hgb (13.5-17.5) g/dL 12.0 L D Hct (40.0-50.0) % 35.1 L MCV (80-95) fL MCH (27.0-33.0) pg MCHC (32.0-36.0) % RDW (11.8-14.1) % Plt Count (130-400) 10^3/uL MPV (8.0-11.0) fL Immature Gran % Neutrophils % Lymphocytes % Monocytes % Eosinophils % Basophils % Nucleated RBC % (0.0-0.3) % Absolute Neutrophils (1.2-6.7) 10^3/uL Absolute Lymphocytes (1.2-3.4) 10^3/uL Absolute Monocytes (0.1-0.8) 10^3/uL Absolute Eosinophils (0.0-0.7) 10^3/uL Absolute Basophils (0.0-0.2) 10^3/uL RBC Morphology PT (9.3-11.0) sec INR (0.9-1.1) VBG pH (7.31-7.41) VBG pCO2 (41-51) mmHg VBG pO2 mmHg VBG HCO3 (23-28) mmol/L VBG Total CO2 (24-29) mmol/L VBG O2 Saturation % VBG Base Excess (-2-3) mmol/L VBG Lactate (0.6-1.4) mmol/L Sodium (136-145) mmol/L Potassium (3.5-5.1) mmol/L Chloride (98-107) mmol/L Carbon Dioxide (21.0-32.0) mmol/L Anion Gap (3-11) mmol/L BUN (7-18) mg/dL Creatinine (0.70-1.30) mg/dL Estimated GFR/1.73 m2 (mL/min/1.73m2) Glucose (74-106) mg/dL Hemoglobin A1c (<5.7) % Calcium (8.5-10.1) mg/dL Phosphorus (2.6-4.7) mg/dL Magnesium (1.8-2.4) mg/dL Iron (65-175) ug/dL TIBC (250-450) ug/dL Transferrin % Sat (20-55) % Ferritin (26-388) ng/mL Total Bilirubin (0.2-1.0) mg/dL Conjugated Bilirubin (0.0-0.2) mg/dL AST (15-37) U/L ALT (16-63) U/L Alkaline Phosphatase (46-116) U/L C-Reactive Protein (0.0-0.3) mg/dL Total Protein (6.4-8.2) g/dL Albumin (3.4-5.0) g/dL Angiotensin Convert Enz (16 - 85) U/L Vitamin B12 (193-986) pg/mL Folate (8.6-20.0) ng/mL Procalcitonin ng/mL Urine Color (Yellow) Yellow Urine Clarity (Clear) Clear Urine pH (5-8) 5.5 Ur Specific [place] (1.005-1.025) 1.015 Urine Protein (Negative) mg/dL Negative Urine Ketones (Negative) mg/dL Trace H Urine Blood (Negative) Negative Urine Nitrite (Negative) Negative Urine Bilirubin (Negative) Negative Urine Urobilinogen (Up TO 0.2) EU/dL 2.0 H Ur Leukocyte Esterase (Negative) Negative Urine Glucose (Negative) mg/dL 500 H Rheumatoid Factor (<12.0) IU/mL Lyme Disease Antibody (Negative) COVID-19 Source SARS-CoV-2 (PCR) (Negative) HIV 1&2 Ag/Ab, 4th Gen (Negative) Influenza Type A (PCR) (Negative) Influenza Type B (PCR) (Negative) Urine Legionella Ag (Negative) RSV (PCR) (Negative) Ur Strep pneumoniae Ag (Negative) Negative Add-On Test Request Range/Units 05/04/22 05/04/22 05/04/22 06:08 06:08 06:08 WBC (4.4-10.8) 10^3/uL 9.44 RBC (4.36-5.78) 10^6/uL 3.72 L Hgb (13.5-17.5) g/dL 11.3 L Hct (40.0-50.0) % 32.5 L MCV (80-95) fL 87 MCH (27.0-33.0) pg 30.4 MCHC (32.0-36.0) % 34.8 RDW (11.8-14.1) % 13.4 Plt Count (130-400) 10^3/uL 203 MPV (8.0-11.0) fL 9.2 Immature Gran % 0.7 Neutrophils % 80.6 Lymphocytes % 3.4 Monocytes % 13.8 Eosinophils % 1.1 Basophils % 0.4 Nucleated RBC % (0.0-0.3) % 0.0 Absolute Neutrophils (1.2-6.7) 10^3/uL 7.61 H Absolute Lymphocytes (1.2-3.4) 10^3/uL 0.32 L Absolute Monocytes (0.1-0.8) 10^3/uL 1.30 H Absolute Eosinophils (0.0-0.7) 10^3/uL 0.10 Absolute Basophils (0.0-0.2) 10^3/uL 0.04 RBC Morphology PT (9.3-11.0) sec INR (0.9-1.1) VBG pH (7.31-7.41) VBG pCO2 (41-51) mmHg VBG pO2 mmHg VBG HCO3 (23-28) mmol/L VBG Total CO2 (24-29) mmol/L VBG O2 Saturation % VBG Base Excess (-2-3) mmol/L VBG Lactate (0.6-1.4) mmol/L Sodium (136-145) mmol/L 135 L Potassium (3.5-5.1) mmol/L 3.6 Chloride (98-107) mmol/L 99 Carbon Dioxide (21.0-32.0) mmol/L 25.5 Anion Gap (3-11) mmol/L 10.5 BUN (7-18) mg/dL 25 H Creatinine (0.70-1.30) mg/dL 0.9 Estimated GFR/1.73 m2 (mL/min/1.73m2) >= 60.00 Glucose (74-106) mg/dL 177 H Hemoglobin A1c (<5.7) % Calcium (8.5-10.1) mg/dL 8.5 Phosphorus (2.6-4.7) mg/dL Magnesium (1.8-2.4) mg/dL 1.9 Iron (65-175) ug/dL TIBC (250-450) ug/dL Transferrin % Sat (20-55) % Ferritin (26-388) ng/mL Total Bilirubin (0.2-1.0) mg/dL 1.1 H Conjugated Bilirubin (0.0-0.2) mg/dL 0.6 H AST (15-37) U/L 19 ALT (16-63) U/L 25 Alkaline Phosphatase (46-116) U/L 67 C-Reactive Protein (0.0-0.3) mg/dL Total Protein (6.4-8.2) g/dL 6.2 L Albumin (3.4-5.0) g/dL 2.2 L Angiotensin Convert Enz (16 - 85) U/L Vitamin B12 (193-986) pg/mL Folate (8.6-20.0) ng/mL Procalcitonin ng/mL Urine Color (Yellow) Urine Clarity (Clear) Urine pH (5-8) Ur Specific [place] (1.005-1.025) Urine Protein (Negative) mg/dL Urine Ketones (Negative) mg/dL Urine Blood (Negative) Urine Nitrite (Negative) Urine Bilirubin (Negative) Urine Urobilinogen (Up TO 0.2) EU/dL Ur Leukocyte Esterase (Negative) Urine Glucose (Negative) mg/dL Rheumatoid Factor (<12.0) IU/mL Lyme Disease Antibody (Negative) COVID-19 Source SARS-CoV-2 (PCR) (Negative) HIV 1&2 Ag/Ab, 4th Gen (Negative) Influenza Type A (PCR) (Negative) Influenza Type B (PCR) (Negative) Urine Legionella Ag (Negative) RSV (PCR) (Negative) Ur Strep pneumoniae Ag (Negative) Add-On Test Request DONE Range/Units 05/04/22 05/04/22 05/05/22 06:08 13:00 06:10 WBC (4.4-10.8) 10^3/uL RBC (4.36-5.78) 10^6/uL Hgb (13.5-17.5) g/dL Hct (40.0-50.0) % MCV (80-95) fL MCH (27.0-33.0) pg MCHC (32.0-36.0) % RDW (11.8-14.1) % Plt Count (130-400) 10^3/uL MPV (8.0-11.0) fL Immature Gran % Neutrophils % Lymphocytes % Monocytes % Eosinophils % Basophils % Nucleated RBC % (0.0-0.3) % Absolute Neutrophils (1.2-6.7) 10^3/uL Absolute Lymphocytes (1.2-3.4) 10^3/uL Absolute Monocytes (0.1-0.8) 10^3/uL Absolute Eosinophils (0.0-0.7) 10^3/uL Absolute Basophils (0.0-0.2) 10^3/uL RBC Morphology PT (9.3-11.0) sec INR (0.9-1.1) VBG pH (7.31-7.41) VBG pCO2 (41-51) mmHg VBG pO2 mmHg VBG HCO3 (23-28) mmol/L VBG Total CO2 (24-29) mmol/L VBG O2 Saturation % VBG Base Excess (-2-3) mmol/L VBG Lactate (0.6-1.4) mmol/L Sodium (136-145) mmol/L 136 Potassium (3.5-5.1) mmol/L 4.0 Chloride (98-107) mmol/L 100 Carbon Dioxide (21.0-32.0) mmol/L 26.9 Anion Gap (3-11) mmol/L 9.1 BUN (7-18) mg/dL 24 H Creatinine (0.70-1.30) mg/dL 1.0 Estimated GFR/1.73 m2 (mL/min/1.73m2) >= 60.00 Glucose (74-106) mg/dL 164 H Hemoglobin A1c (<5.7) % Calcium (8.5-10.1) mg/dL 8.4 L Phosphorus (2.6-4.7) mg/dL Magnesium (1.8-2.4) mg/dL 2.1 Iron (65-175) ug/dL TIBC (250-450) ug/dL Transferrin % Sat (20-55) % Ferritin (26-388) ng/mL Total Bilirubin (0.2-1.0) mg/dL Conjugated Bilirubin (0.0-0.2) mg/dL AST (15-37) U/L ALT (16-63) U/L Alkaline Phosphatase (46-116) U/L C-Reactive Protein (0.0-0.3) mg/dL > 25.00 H > 25.00 H Total Protein (6.4-8.2) g/dL Albumin (3.4-5.0) g/dL Angiotensin Convert Enz (16 - 85) U/L Vitamin B12 (193-986) pg/mL Folate (8.6-20.0) ng/mL Procalcitonin ng/mL Urine Color (Yellow) Urine Clarity (Clear) Urine pH (5-8) Ur Specific [place] (1.005-1.025) Urine Protein (Negative) mg/dL Urine Ketones (Negative) mg/dL Urine Blood (Negative) Urine Nitrite (Negative) Urine Bilirubin (Negative) Urine Urobilinogen (Up TO 0.2) EU/dL Ur Leukocyte Esterase (Negative) Urine Glucose (Negative) mg/dL Rheumatoid Factor (<12.0) IU/mL Lyme Disease Antibody (Negative) COVID-19 Source SARS-CoV-2 (PCR) (Negative) HIV 1&2 Ag/Ab, 4th Gen (Negative) Negative Influenza Type A (PCR) (Negative) Influenza Type B (PCR) (Negative) Urine Legionella Ag (Negative) RSV (PCR) (Negative) Ur Strep pneumoniae Ag (Negative) Add-On Test Request Range/Units 05/05/22 05/06/22 05/06/22 06:10 07:58 07:58 WBC (4.4-10.8) 10^3/uL 9.39 RBC (4.36-5.78) 10^6/uL 3.58 L Hgb (13.5-17.5) g/dL 10.6 L Hct (40.0-50.0) % 32.2 L MCV (80-95) fL 90 MCH (27.0-33.0) pg 29.6 MCHC (32.0-36.0) % 32.9 RDW (11.8-14.1) % 13.6 Plt Count (130-400) 10^3/uL 200 MPV (8.0-11.0) fL 8.9 Immature Gran % 0.7 Neutrophils % 81.4 Lymphocytes % 3.7 Monocytes % 11.7 Eosinophils % 2.0 Basophils % 0.5 Nucleated RBC % (0.0-0.3) % 0.0 Absolute Neutrophils (1.2-6.7) 10^3/uL 7.63 H Absolute Lymphocytes (1.2-3.4) 10^3/uL 0.35 L Absolute Monocytes (0.1-0.8) 10^3/uL 1.10 H Absolute Eosinophils (0.0-0.7) 10^3/uL 0.19 Absolute Basophils (0.0-0.2) 10^3/uL 0.05 RBC Morphology PT (9.3-11.0) sec INR (0.9-1.1) VBG pH (7.31-7.41) VBG pCO2 (41-51) mmHg VBG pO2 mmHg VBG HCO3 (23-28) mmol/L VBG Total CO2 (24-29) mmol/L VBG O2 Saturation % VBG Base Excess (-2-3) mmol/L VBG Lactate (0.6-1.4) mmol/L Sodium (136-145) mmol/L Potassium (3.5-5.1) mmol/L Chloride (98-107) mmol/L Carbon Dioxide (21.0-32.0) mmol/L Anion Gap (3-11) mmol/L BUN (7-18) mg/dL Creatinine (0.70-1.30) mg/dL Estimated GFR/1.73 m2 (mL/min/1.73m2) Glucose (74-106) mg/dL Hemoglobin A1c (<5.7) % 7.0 H Calcium (8.5-10.1) mg/dL Phosphorus (2.6-4.7) mg/dL Magnesium (1.8-2.4) mg/dL Iron (65-175) ug/dL 11 L TIBC (250-450) ug/dL 122 L Transferrin % Sat (20-55) % 9 L Ferritin (26-388) ng/mL Total Bilirubin (0.2-1.0) mg/dL Conjugated Bilirubin (0.0-0.2) mg/dL AST (15-37) U/L ALT (16-63) U/L Alkaline Phosphatase (46-116) U/L C-Reactive Protein (0.0-0.3) mg/dL Total Protein (6.4-8.2) g/dL Albumin (3.4-5.0) g/dL Angiotensin Convert Enz (16 - 85) U/L Vitamin B12 (193-986) pg/mL Folate (8.6-20.0) ng/mL Procalcitonin ng/mL Urine Color (Yellow) Urine Clarity (Clear) Urine pH (5-8) Ur Specific [place] (1.005-1.025) Urine Protein (Negative) mg/dL Urine Ketones (Negative) mg/dL Urine Blood (Negative) Urine Nitrite (Negative) Urine Bilirubin (Negative) Urine Urobilinogen (Up TO 0.2) EU/dL Ur Leukocyte Esterase (Negative) Urine Glucose (Negative) mg/dL Rheumatoid Factor (<12.0) IU/mL Lyme Disease Antibody (Negative) COVID-19 Source SARS-CoV-2 (PCR) (Negative) HIV 1&2 Ag/Ab, 4th Gen (Negative) Influenza Type A (PCR) (Negative) Influenza Type B (PCR) (Negative) Urine Legionella Ag (Negative) RSV (PCR) (Negative) Ur Strep pneumoniae Ag (Negative) Add-On Test Request Range/Units 05/06/22 05/06/22 05/06/22 07:58 07:58 07:58 WBC (4.4-10.8) 10^3/uL RBC (4.36-5.78) 10^6/uL Hgb (13.5-17.5) g/dL Hct (40.0-50.0) % MCV (80-95) fL MCH (27.0-33.0) pg MCHC (32.0-36.0) % RDW (11.8-14.1) % Plt Count (130-400) 10^3/uL MPV (8.0-11.0) fL Immature Gran % Neutrophils % Lymphocytes % Monocytes % Eosinophils % Basophils % Nucleated RBC % (0.0-0.3) % Absolute Neutrophils (1.2-6.7) 10^3/uL Absolute Lymphocytes (1.2-3.4) 10^3/uL Absolute Monocytes (0.1-0.8) 10^3/uL Absolute Eosinophils (0.0-0.7) 10^3/uL Absolute Basophils (0.0-0.2) 10^3/uL RBC Morphology PT (9.3-11.0) sec INR (0.9-1.1) VBG pH (7.31-7.41) VBG pCO2 (41-51) mmHg VBG pO2 mmHg VBG HCO3 (23-28) mmol/L VBG Total CO2 (24-29) mmol/L VBG O2 Saturation % VBG Base Excess (-2-3) mmol/L VBG Lactate (0.6-1.4) mmol/L Sodium (136-145) mmol/L 134 L Potassium (3.5-5.1) mmol/L 4.1 Chloride (98-107) mmol/L 100 Carbon Dioxide (21.0-32.0) mmol/L 26.3 Anion Gap (3-11) mmol/L 7.7 BUN (7-18) mg/dL 27 H Creatinine (0.70-1.30) mg/dL 1.0 Estimated GFR/1.73 m2 (mL/min/1.73m2) >= 60.00 Glucose (74-106) mg/dL 199 H Hemoglobin A1c (<5.7) % Calcium (8.5-10.1) mg/dL 8.1 L Phosphorus (2.6-4.7) mg/dL Magnesium (1.8-2.4) mg/dL 2.0 Iron (65-175) ug/dL TIBC (250-450) ug/dL Transferrin % Sat (20-55) % Ferritin (26-388) ng/mL 746 H Total Bilirubin (0.2-1.0) mg/dL Conjugated Bilirubin (0.0-0.2) mg/dL AST (15-37) U/L ALT (16-63) U/L Alkaline Phosphatase (46-116) U/L C-Reactive Protein (0.0-0.3) mg/dL 24.55 H Total Protein (6.4-8.2) g/dL Albumin (3.4-5.0) g/dL Angiotensin Convert Enz (16 - 85) U/L Vitamin B12 (193-986) pg/mL 1086 H Folate (8.6-20.0) ng/mL 6.7 L Procalcitonin ng/mL 0.5 Urine Color (Yellow) Urine Clarity (Clear) Urine pH (5-8) Ur Specific [place] (1.005-1.025) Urine Protein (Negative) mg/dL Urine Ketones (Negative) mg/dL Urine Blood (Negative) Urine Nitrite (Negative) Urine Bilirubin (Negative) Urine Urobilinogen (Up TO 0.2) EU/dL Ur Leukocyte Esterase (Negative) Urine Glucose (Negative) mg/dL Rheumatoid Factor (<12.0) IU/mL Lyme Disease Antibody (Negative) COVID-19 Source SARS-CoV-2 (PCR) (Negative) HIV 1&2 Ag/Ab, 4th Gen (Negative) Influenza Type A (PCR) (Negative) Influenza Type B (PCR) (Negative) Urine Legionella Ag (Negative) RSV (PCR) (Negative) Ur Strep pneumoniae Ag (Negative) Add-On Test Request Range/Units 05/06/22 05/06/22 05/07/22 07:58 08:25 06:25 WBC (4.4-10.8) 10^3/uL 10.20 RBC (4.36-5.78) 10^6/uL 3.76 L Hgb (13.5-17.5) g/dL 11.3 L Hct (40.0-50.0) % 33.5 L MCV (80-95) fL 89 MCH (27.0-33.0) pg 30.1 MCHC (32.0-36.0) % 33.7 RDW (11.8-14.1) % 13.7 Plt Count (130-400) 10^3/uL 213 MPV (8.0-11.0) fL 9.2 Immature Gran % 0.8 Neutrophils % 83.5 Lymphocytes % 3.2 Monocytes % 11.0 Eosinophils % 1.0 Basophils % 0.5 Nucleated RBC % (0.0-0.3) % 0.0 Absolute Neutrophils (1.2-6.7) 10^3/uL 8.52 H Absolute Lymphocytes (1.2-3.4) 10^3/uL 0.33 L Absolute Monocytes (0.1-0.8) 10^3/uL 1.12 H Absolute Eosinophils (0.0-0.7) 10^3/uL 0.10 Absolute Basophils (0.0-0.2) 10^3/uL 0.05 RBC Morphology PT (9.3-11.0) sec INR (0.9-1.1) VBG pH (7.31-7.41) VBG pCO2 (41-51) mmHg VBG pO2 mmHg VBG HCO3 (23-28) mmol/L VBG Total CO2 (24-29) mmol/L VBG O2 Saturation % VBG Base Excess (-2-3) mmol/L VBG Lactate (0.6-1.4) mmol/L Sodium (136-145) mmol/L 136 Potassium (3.5-5.1) mmol/L 4.4 Chloride (98-107) mmol/L 99 Carbon Dioxide (21.0-32.0) mmol/L 24.7 Anion Gap (3-11) mmol/L 12.3 H BUN (7-18) mg/dL 25 H Creatinine (0.70-1.30) mg/dL 1.0 Estimated GFR/1.73 m2 (mL/min/1.73m2) >= 60.00 Glucose (74-106) mg/dL 182 H Hemoglobin A1c (<5.7) % Calcium (8.5-10.1) mg/dL 8.3 L Phosphorus (2.6-4.7) mg/dL Magnesium (1.8-2.4) mg/dL 2.3 Iron (65-175) ug/dL TIBC (250-450) ug/dL Transferrin % Sat (20-55) % Ferritin (26-388) ng/mL Total Bilirubin (0.2-1.0) mg/dL Conjugated Bilirubin (0.0-0.2) mg/dL AST (15-37) U/L ALT (16-63) U/L Alkaline Phosphatase (46-116) U/L C-Reactive Protein (0.0-0.3) mg/dL > 25.00 H Total Protein (6.4-8.2) g/dL Albumin (3.4-5.0) g/dL Angiotensin Convert Enz (16 - 85) U/L Vitamin B12 (193-986) pg/mL Folate (8.6-20.0) ng/mL Procalcitonin ng/mL Urine Color (Yellow) Urine Clarity (Clear) Urine pH (5-8) Ur Specific [place] (1.005-1.025) Urine Protein (Negative) mg/dL Urine Ketones (Negative) mg/dL Urine Blood (Negative) Urine Nitrite (Negative) Urine Bilirubin (Negative) Urine Urobilinogen (Up TO 0.2) EU/dL Ur Leukocyte Esterase (Negative) Urine Glucose (Negative) mg/dL Rheumatoid Factor (<12.0) IU/mL Lyme Disease Antibody (Negative) COVID-19 Source Nasal/Nares SARS-CoV-2 (PCR) (Negative) Negative HIV 1&2 Ag/Ab, 4th Gen (Negative) Influenza Type A (PCR) (Negative) Influenza Type B (PCR) (Negative) Urine Legionella Ag (Negative) RSV (PCR) (Negative) Ur Strep pneumoniae Ag (Negative) Add-On Test Request Range/Units 05/07/22 05/07/22 05/07/22 06:25 06:25 06:25 WBC (4.4-10.8) 10^3/uL 13.67 H RBC (4.36-5.78) 10^6/uL 3.90 L Hgb (13.5-17.5) g/dL 11.6 L Hct (40.0-50.0) % 34.3 L MCV (80-95) fL 88 MCH (27.0-33.0) pg 29.7 MCHC (32.0-36.0) % 33.8 RDW (11.8-14.1) % 13.8 Plt Count (130-400) 10^3/uL 286 MPV (8.0-11.0) fL 8.9 Immature Gran % 1.2 Neutrophils % 84.4 Lymphocytes % 2.5 Monocytes % 10.0 Eosinophils % 1.5 Basophils % 0.4 Nucleated RBC % (0.0-0.3) % 0.0 Absolute Neutrophils (1.2-6.7) 10^3/uL 11.54 H Absolute Lymphocytes (1.2-3.4) 10^3/uL 0.34 L Absolute Monocytes (0.1-0.8) 10^3/uL 1.37 H Absolute Eosinophils (0.0-0.7) 10^3/uL 0.21 Absolute Basophils (0.0-0.2) 10^3/uL 0.05 RBC Morphology PT (9.3-11.0) sec 10.9 INR (0.9-1.1) 1.1 VBG pH (7.31-7.41) VBG pCO2 (41-51) mmHg VBG pO2 mmHg VBG HCO3 (23-28) mmol/L VBG Total CO2 (24-29) mmol/L VBG O2 Saturation % VBG Base Excess (-2-3) mmol/L VBG Lactate (0.6-1.4) mmol/L Sodium (136-145) mmol/L Potassium (3.5-5.1) mmol/L Chloride (98-107) mmol/L Carbon Dioxide (21.0-32.0) mmol/L Anion Gap (3-11) mmol/L BUN (7-18) mg/dL Creatinine (0.70-1.30) mg/dL Estimated GFR/1.73 m2 (mL/min/1.73m2) Glucose (74-106) mg/dL Hemoglobin A1c (<5.7) % Calcium (8.5-10.1) mg/dL Phosphorus (2.6-4.7) mg/dL Magnesium (1.8-2.4) mg/dL Iron (65-175) ug/dL TIBC (250-450) ug/dL Transferrin % Sat (20-55) % Ferritin (26-388) ng/mL Total Bilirubin (0.2-1.0) mg/dL 1.0 Conjugated Bilirubin (0.0-0.2) mg/dL 0.5 H AST (15-37) U/L 28 ALT (16-63) U/L 33 Alkaline Phosphatase (46-116) U/L 85 C-Reactive Protein (0.0-0.3) mg/dL Total Protein (6.4-8.2) g/dL 6.0 L Albumin (3.4-5.0) g/dL 1.9 L Angiotensin Convert Enz (16 - 85) U/L Vitamin B12 (193-986) pg/mL Folate (8.6-20.0) ng/mL Procalcitonin ng/mL Urine Color (Yellow) Urine Clarity (Clear) Urine pH (5-8) Ur Specific [place] (1.005-1.025) Urine Protein (Negative) mg/dL Urine Ketones (Negative) mg/dL Urine Blood (Negative) Urine Nitrite (Negative) Urine Bilirubin (Negative) Urine Urobilinogen (Up TO 0.2) EU/dL Ur Leukocyte Esterase (Negative) Urine Glucose (Negative) mg/dL Rheumatoid Factor (<12.0) IU/mL Lyme Disease Antibody (Negative) COVID-19 Source SARS-CoV-2 (PCR) (Negative) HIV 1&2 Ag/Ab, 4th Gen (Negative) Influenza Type A (PCR) (Negative) Influenza Type B (PCR) (Negative) Urine Legionella Ag (Negative) RSV (PCR) (Negative) Ur Strep pneumoniae Ag (Negative) Add-On Test Request Range/Units 05/07/22 05/07/22 05/07/22 06:25 06:25 10:10 WBC (4.4-10.8) 10^3/uL RBC (4.36-5.78) 10^6/uL Hgb (13.5-17.5) g/dL Hct (40.0-50.0) % MCV (80-95) fL MCH (27.0-33.0) pg MCHC (32.0-36.0) % RDW (11.8-14.1) % Plt Count (130-400) 10^3/uL MPV (8.0-11.0) fL Immature Gran % Neutrophils % Lymphocytes % Monocytes % Eosinophils % Basophils % Nucleated RBC % (0.0-0.3) % Absolute Neutrophils (1.2-6.7) 10^3/uL Absolute Lymphocytes (1.2-3.4) 10^3/uL Absolute Monocytes (0.1-0.8) 10^3/uL Absolute Eosinophils (0.0-0.7) 10^3/uL Absolute Basophils (0.0-0.2) 10^3/uL RBC Morphology PT (9.3-11.0) sec INR (0.9-1.1) VBG pH (7.31-7.41) VBG pCO2 (41-51) mmHg VBG pO2 mmHg VBG HCO3 (23-28) mmol/L VBG Total CO2 (24-29) mmol/L VBG O2 Saturation % VBG Base Excess (-2-3) mmol/L VBG Lactate (0.6-1.4) mmol/L Sodium (136-145) mmol/L Potassium (3.5-5.1) mmol/L Chloride (98-107) mmol/L Carbon Dioxide (21.0-32.0) mmol/L Anion Gap (3-11) mmol/L BUN (7-18) mg/dL Creatinine (0.70-1.30) mg/dL Estimated GFR/1.73 m2 (mL/min/1.73m2) Glucose (74-106) mg/dL Hemoglobin A1c (<5.7) % Calcium (8.5-10.1) mg/dL Phosphorus (2.6-4.7) mg/dL 2.6 Magnesium (1.8-2.4) mg/dL Iron (65-175) ug/dL TIBC (250-450) ug/dL Transferrin % Sat (20-55) % Ferritin (26-388) ng/mL Total Bilirubin (0.2-1.0) mg/dL Conjugated Bilirubin (0.0-0.2) mg/dL AST (15-37) U/L ALT (16-63) U/L Alkaline Phosphatase (46-116) U/L C-Reactive Protein (0.0-0.3) mg/dL Total Protein (6.4-8.2) g/dL Albumin (3.4-5.0) g/dL Angiotensin Convert Enz (16 - 85) U/L Vitamin B12 (193-986) pg/mL Folate (8.6-20.0) ng/mL Procalcitonin ng/mL Urine Color (Yellow) Urine Clarity (Clear) Urine pH (5-8) Ur Specific [place] (1.005-1.025) Urine Protein (Negative) mg/dL Urine Ketones (Negative) mg/dL Urine Blood (Negative) Urine Nitrite (Negative) Urine Bilirubin (Negative) Urine Urobilinogen (Up TO 0.2) EU/dL Ur Leukocyte Esterase (Negative) Urine Glucose (Negative) mg/dL Rheumatoid Factor (<12.0) IU/mL 12.9 H Lyme Disease Antibody (Negative) COVID-19 Source SARS-CoV-2 (PCR) (Negative) HIV 1&2 Ag/Ab, 4th Gen (Negative) Influenza Type A (PCR) (Negative) Influenza Type B (PCR) (Negative) Urine Legionella Ag (Negative) RSV (PCR) (Negative) Ur Strep pneumoniae Ag (Negative) Add-On Test Request DONE Range/Units 05/08/22 05/08/22 05/08/22 04:56 04:56 04:56 WBC (4.4-10.8) 10^3/uL 15.08 H RBC (4.36-5.78) 10^6/uL 3.97 L Hgb (13.5-17.5) g/dL 11.8 L Hct (40.0-50.0) % 35.5 L MCV (80-95) fL 89 MCH (27.0-33.0) pg 29.7 MCHC (32.0-36.0) % 33.2 RDW (11.8-14.1) % 13.8 Plt Count (130-400) 10^3/uL 308 MPV (8.0-11.0) fL 8.6 Immature Gran % 1.3 Neutrophils % 84.3 Lymphocytes % 2.6 Monocytes % 10.8 Eosinophils % 0.7 Basophils % 0.3 Nucleated RBC % (0.0-0.3) % 0.0 Absolute Neutrophils (1.2-6.7) 10^3/uL 12.71 H Absolute Lymphocytes (1.2-3.4) 10^3/uL 0.39 L Absolute Monocytes (0.1-0.8) 10^3/uL 1.63 H Absolute Eosinophils (0.0-0.7) 10^3/uL 0.11 Absolute Basophils (0.0-0.2) 10^3/uL 0.05 RBC Morphology Normal PT (9.3-11.0) sec INR (0.9-1.1) VBG pH (7.31-7.41) VBG pCO2 (41-51) mmHg VBG pO2 mmHg VBG HCO3 (23-28) mmol/L VBG Total CO2 (24-29) mmol/L VBG O2 Saturation % VBG Base Excess (-2-3) mmol/L VBG Lactate (0.6-1.4) mmol/L Sodium (136-145) mmol/L 133 L Potassium (3.5-5.1) mmol/L 4.5 Chloride (98-107) mmol/L 98 Carbon Dioxide (21.0-32.0) mmol/L 25.8 Anion Gap (3-11) mmol/L 9.2 BUN (7-18) mg/dL 22 H Creatinine (0.70-1.30) mg/dL 0.9 Estimated GFR/1.73 m2 (mL/min/1.73m2) >= 60.00 Glucose (74-106) mg/dL 164 H Hemoglobin A1c (<5.7) % Calcium (8.5-10.1) mg/dL 7.8 L Phosphorus (2.6-4.7) mg/dL Magnesium (1.8-2.4) mg/dL 2.2 Iron (65-175) ug/dL TIBC (250-450) ug/dL Transferrin % Sat (20-55) % Ferritin (26-388) ng/mL Total Bilirubin (0.2-1.0) mg/dL Conjugated Bilirubin (0.0-0.2) mg/dL AST (15-37) U/L ALT (16-63) U/L Alkaline Phosphatase (46-116) U/L C-Reactive Protein (0.0-0.3) mg/dL > 25.00 H Total Protein (6.4-8.2) g/dL Albumin (3.4-5.0) g/dL Angiotensin Convert Enz (16 - 85) U/L Vitamin B12 (193-986) pg/mL Folate (8.6-20.0) ng/mL Procalcitonin ng/mL 0.6 Urine Color (Yellow) Urine Clarity (Clear) Urine pH (5-8) Ur Specific [place] (1.005-1.025) Urine Protein (Negative) mg/dL Urine Ketones (Negative) mg/dL Urine Blood (Negative) Urine Nitrite (Negative) Urine Bilirubin (Negative) Urine Urobilinogen (Up TO 0.2) EU/dL Ur Leukocyte Esterase (Negative) Urine Glucose (Negative) mg/dL Rheumatoid Factor (<12.0) IU/mL Lyme Disease Antibody (Negative) COVID-19 Source SARS-CoV-2 (PCR) (Negative) HIV 1&2 Ag/Ab, 4th Gen (Negative) Influenza Type A (PCR) (Negative) Influenza Type B (PCR) (Negative) Urine Legionella Ag (Negative) RSV (PCR) (Negative) Ur Strep pneumoniae Ag (Negative) Add-On Test Request Imaging Chest x-ray: report reviewed and image reviewed
--- NOTE | 2022-05-08 08:00 | DI.RAD_ITS ---
Exam(s) XR PORTABLE CHEST AP EXAM: XR PORTABLE CHEST AP CLINICAL HISTORY: non resolving pneumonia. TECHNIQUE: 2D digital imaging was performed. COMPARISON: Prior chest x-ray 05/06/2020 FINDINGS: Single AP portable view. Heart size is unchanged. Mediastinum unchanged.. There is no radiographic improvement in the extensive infiltrate throughout the entire left lung. Mi lder infiltrate seen in the right lung, including nodular infiltrates.. No pleural effusion on the r ight. IMPRESSION: No radiographic improvement. Findings are most probably a combination of infectious disease and meta static disease. DATA REPOSITORY: RADIATION DOSE DELIVERED: All CT scans at this facility use at least one of these dose optimization techniques: automated exposure control; mA and/or kV adjustment per patient size (includes targeted e xams where dose is matched to clinical indication); or iterative reconstruction.
[2022-05-08] MEDS: Enoxaparin 40 MG/0.4 ML SYR SC (08:01)
[2022-05-08] MEDS: Metoprolol CR 100 MG TABCR PO (08:01)
[2022-05-08] MEDS: Normal Saline Flush 10 ML SYR IVP ×5 (08:01→17:29)
[2022-05-08] MEDS: Atorvastatin 40 MG TAB PO (08:02)
[2022-05-08] MEDS: Folic Acid 1 MG TAB PO (08:02)
[2022-05-08] MEDS: Benzonatate 200 MG CAP PO ×3 (08:02→20:56)
[2022-05-08] MEDS: guaiFENesin 600 MG TABCR PO ×2 (08:02→20:56)
[2022-05-08] MEDS: Insulin Aspart 300 UNITS/3 ML PEN SC ×3 (08:03→21:44)
--- NOTE | 2022-05-08 08:09 | DI.VRAD_ITS ---
PROCEDURE INFORMATION: Exam: XR Chest Exam date and time: 05/08/2022 6:35 AM Age: 57 years old Clinical indication: Patient HX: Cough, non resolving pneumonia TECHNIQUE: Imaging protocol: Radiologic exam of the chest. Views: 1 view. COMPARISON: 1. XR PORTABLE CHEST AP 05/06/2022 8:[address] CHEST WO 05/04/2022 9:34 AM 3. XR PORTABLE CHEST AP 05/02/2022 9:43 PM FINDINGS: Lungs: There is persistent in extensive consolidation throughout the right lung which obscures the right mediastinal border, not significantly changed since 05/06/2022, compatible with reported pneumonia. There are ill-defined nodular opacities throughout the right lung, not significantly changed and better characterized on the recent chest CT. Pleural spaces: No visible pleural effusion. No pneumothorax. Heart/Mediastinum: Heart size and cardiomediastinal contours are difficult to accurately assess given the extent of parenchymal opacity obscuring the left cardiac border. Bones/joints: Chronic posttraumatic deformity of the distal right clavicle. No acute osseous abnormality. IMPRESSION: Persistent extensive consolidation throughout the left lung consistent with reported pneumonia. No significant interval change since 05/06/2022. Dictated and Authenticated by: hSabana Agee MD. Ordering:NHUNG Mccallum MD
[2022-05-08] MEDS: Albuterol 2.5 MG/3 ML INH SOLN VIAL UPD ×2 (08:49→16:30)
[2022-05-08 10:57] LABS: Cyclic Citrullinated Peptide <2.5 U/mL (<5.0)
[2022-05-08 11:40] LABS: Anaplasma phagocytophilum Negative (Negative); B. miyamotoi PCR Negative (Negative); Babesia divergens/MO-1 Negative (Negative); Babesia duncani Negative (Negative); Babesia microti Negative (Negative); Ehrlichia chaffeensis Negative (Negative); Ehrlichia ewingii/canis Negative (Negative); Ehrlichia muris eauclairensis Negative (Negative)
--- NOTE | 2022-05-08 11:51 | CMPROGNOTE_ITS ---
- If Service Date Differs Date of service: 05/08/22 Time of Service: 11:51 Care Management Progress Note S/O: Deidre remains inpatient, broncoscopy completed yesterday with Prosthetic Assistant; Dr. Huitron, please refer to note for detailed information. Transfer being sought; no bed availability at this time. CM continues to follow. A: 57 year old male admitted to [facility] 05/02/22 for Pneumonia. P: Undetermined plan at this time, as transfer is indicated; currently no tertiary bed availability.
[2022-05-08 13:25] LABS: Fungitell Qualitative Negative (Negative); Fungitell Quantitative Value <31 pg/mL (<60 pg/mL)
[2022-05-08 14:27] LABS: ANCA Interpretation Negative (Negative)
[2022-05-08] MEDS: Ondansetron 4 MG/2 ML VIAL IVP (14:28)
[2022-05-08 14:37] LABS: ANA Interpretation Negative (Negative)
--- NOTE | 2022-05-08 15:47 | W.PM.PROGNOT ---
Date of Service Date of service: 05/08/22 Time of Service: 15:47 Assessment and Plan Assessment and plan (1) Sepsis: Status: Acute Assessment and plan: due to pneumonia. CXR w/ extensive alveolar filling of left chest but also some reticulonodular infiltrates on right as well. He has had increased oxygen requirements up to 5 lpm. this afternoon I have had to put him on HFNC 40% and will plan to move him to the ICU for closer monitoring. Per my discussion w/ Dr. Pinto, he was started on micofungin but per her discussion w/ her colleagues at [facility], this was changed to voriconazole. Fungal and myocbacterial studies are pending at this time. Gram stain has not shown any bacterial component. If he is not improving w/ antifungals then consider transfer to [facility] (he and his family would like tertiary transfer but understand at this time that both [facility] and [facility] are at capacity and not receiving any transfers unless a life saving emergency procedure needs to be done immediately; in which his case he does not require). Continue supportive care w/ broad spectrum antibiotics pending BAL cultures (currently on Zosyn and Doxycycline; Vancomycin was dropped w/ his neg. MRSA screen) and voriconazole. NO steroids at this time until we have ruled out fungal pneumonia. (2) CAP (community acquired pneumonia): Status: Acute Assessment and plan: as above (3) Pleuritic chest pain: Status: Resolved Assessment and plan: actually seems to be more musculoskeletal d/t his incessant coughing. I have renewed his toradol which seems to have dropped off his list; continue lidocaine patches, muscle relaxants (4) Diabetes mellitus type 2, noninsulin dependent: Status: Chronic Assessment and plan: A1C 7.0. Continue SSI. Holding oral hypoglycemic agents due to possible interactions with linezolid. (5) DVT prophylaxis: Status: Acute Assessment and plan: enoxaparin renewed (6) Discharge planning issues: Status: Acute Assessment and plan: Full code. Continues to require hospitalization. If no improvement with addition of voriconazole then pursue transfer to a tertiary care facility. Discussed with Dr Pinto. Subjective Subjective Interval history since last seen: Patient appears to have cough is productive of yellowish to slightly orange foamy sputum. Patient continues to have fevers up to 39.1 today he continues to have an oxygen requirement up to 4 L/min to keep his saturation at 95%. Autoimmune studies are still pending but some of them were negative including his ANCA and his CCP antibody and his rheumatoid factor was minimally above the upper limit of normal. His beta D glucan qualitative was negative and the quantitative was less than 31. Urine strep antigen was negative and urine Legionella antigen was negative. HIV antibodies were negative. His entire tick panel was negative for anaplasmosis and Borrelia burgdorferi and Babesia as well as his Lyme antibody. His AFB is still pending and some of the other fungal studies are still pending at this time. Exam Narrative Exam Narrative: Middle aged white male who appears ill, slight diaphoresis w/ paroxysms of coughing; slightly tachpneic but not in acute resp. distress Lungs: coarse bilateral expiratory wheezes and rhonchi L>R Heart: slightly tachycardic Abdomen: obese, protuberant lower legs w/ 1+ pitting bilateral leg edema Objective Last Vital Signs Temp 39.0 C H 05/08/22 15:39 Pulse 120 H 05/08/22 15:36 Resp 33 H 05/08/22 15:36 BP 121/74 05/08/22 15:36 Pulse Ox 95 05/08/22 15:36 Laboratory Results - last 24 hr 05/03/22 05/04/22 05/07/22 08:18 13:10 10:10 WBC RBC Hgb Hct MCV MCH MCHC RDW Plt Count MPV Immature Gran % Neutrophils % Lymphocytes % Monocytes % Eosinophils % Basophils % Nucleated RBC % Absolute Neutrophils Absolute Lymphocytes Absolute Monocytes Absolute Eosinophils Absolute Basophils RBC Morphology Sodium Potassium Chloride Carbon Dioxide Anion Gap BUN Creatinine Estimated GFR/1.73 m2 Glucose Calcium Magnesium C-Reactive Protein Procalcitonin Fluid Type Fluid Tot Bilirubin Rheumatoid Factor 12.9 H Cyclic Citrull Peptide BEBO Titer BEBO Titer 2 BEBO Titer 3 BEBO Interpretation ANCA Immunofluorescen ANCA Titer ANCA Pattern A.phagocytophil DNA PCR Negative B. divergens/MO-1 PCR Negative Babesia duncani (PCR) Negative Babesia microti DNA PCR Negative Borrelia (PCR) Negative E.chaffeensis DNA (PCR) Negative E.ewingii/canis DNA PCR Negative E. muris-like DNA (PCR) Negative B-(1,3)-D-Glucan Quant <31 B-(1,3)-D-Glucan Qual Negative 05/07/22 05/08/2222 10:10 04:56 04:56 WBC RBC Hgb Hct MCV MCH MCHC RDW Plt Count MPV Immature Gran % Neutrophils % Lymphocytes % Monocytes % Eosinophils % Basophils % Nucleated RBC % Absolute Neutrophils Absolute Lymphocytes Absolute Monocytes Absolute Eosinophils Absolute Basophils RBC Morphology Sodium 133 L Potassium 4.5 Chloride 98 Carbon Dioxide 25.8 Anion Gap 9.2 BUN 22 H Creatinine 0.9 Estimated GFR/1.73 m2 >= 60.00 Glucose 164 H Calcium 7.8 L Magnesium 2.2 C-Reactive Protein > 25.00 H Procalcitonin 0.6 Fluid Type Fluid Tot Bilirubin Rheumatoid Factor Cyclic Citrull Peptide <2.5 BEBO Titer Not Applicable BEBO Titer 2 Not Applicable BEBO Titer 3 Not Applicable BEOB Interpretation Negative ANCA Immunofluorescen Negative ANCA Titer Not Applicable ANCA Pattern Not Applicable A.phagocytophil DNA PCR B. divergens/MO-1 PCR Babesia duncani (PCR) Babesia microti DNA PCR Borrelia (PCR) E.chaffeensis DNA (PCR) E.ewingii/canis DNA PCR E. muris-like DNA (PCR) B-(1,3)-D-Glucan Quant B-(1,3)-D-Glucan Qual 05/08/22 05/08/22 04:56 Unknown WBC 15.08 H RBC 3.97 L Hgb 11.8 L Hct 35.5 L MCV 89 MCH 29.7 MCHC 33.2 RDW 13.8 Plt Count 308 MPV 8.6 Immature Gran % 1.3 Neutrophils % 84.3 Lymphocytes % 2.6 Monocytes % 10.8 Eosinophils % 0.7 Basophils % 0.3 Nucleated RBC % 0.0 Absolute Neutrophils 12.71 H Absolute Lymphocytes 0.39 L Absolute Monocytes 1.63 H Absolute Eosinophils 0.11 Absolute Basophils 0.05 RBC Morphology Normal Sodium Potassium Chloride Carbon Dioxide Anion Gap BUN Creatinine Estimated GFR/1.73 m2 Glucose Calcium Magnesium C-Reactive Protein Procalcitonin Fluid Type Cancelled Fluid Tot Bilirubin Cancelled Rheumatoid Factor Cyclic Citrull Peptide BEBO Titer BEBO Titer 2 BEBO Titer 3 BEBO Interpretation ANCA Immunofluorescen ANCA Titer ANCA Pattern A.phagocytophil DNA PCR B. divergens/MO-1 PCR Babesia duncani (PCR) Babesia microti DNA PCR Borrelia (PCR) E.chaffeensis DNA (PCR) E.ewingii/canis DNA PCR E. muris-like DNA (PCR) B-(1,3)-D-Glucan Quant B-(1,3)-D-Glucan Qual Reviewed Pertinent PMH: Yes PAWSS Have you Been Recently Intoxicated or Drunk Within the Last 30 days?: No Have you Ever Experienced Previous Episodes of Alcohol Withdrawal?: No Have you ever Experienced Withdrawal Seizures?: No Have you ever Experienced Delirium Tremens(DT)s?: No Have you ever undergone Alcohol Rehabilitation Treatment (i.e, inpt ot outpatient treatment programs)?: No Have you ever Experienced Blackouts?: No Have you ever Combined Alcohol with other Downers within the last 90 days?: No Have you ever Combined Alcohol with any other Substance of Abuse during the last 90 days?: No Positive Blood Alcohol level on Presentation? [PCS.BAL]: No Evidence of Increased Autonomic Activity (i.e. HR>120, tremor, sweating, agitation, nausea)?: No Result: 0
--- NOTE | 2022-05-08 17:15 | DI.RAD_ITS ---
Exam(s) XR PORTABLE CHEST AP EXAM: XR PORTABLE CHEST AP CLINICAL HISTORY: Worsening pneumonia TECHNIQUE: 2D digital imaging was performed. COMPARISON: CR,XR XR PORTABLE CHEST AP from 05/06/2022 CR,XR XR PORTABLE CHEST AP from 05/08/2022 FINDINGS: A PICC line has been inserted via the left arm. The tip is not well seen likely resides in the lower SVC. LUNGS: No pneumothorax visible. No significant change in extensive infiltrate involving the entire l eft lung. The right lung again shows increased perihilar densities.. HEART: Borders obscured by infiltrate AORTA: Obscured by infiltrate BONES: No gross rib fracture. IMPRESSION: Satisfactory placement of PICC line. No change in dense left lung infiltrate and right perihilar inf iltrates. DATA REPOSITORY: RADIATION DOSE DELIVERED:
[2022-05-08] MEDS: Ketorolac 15 MG/ML VIAL IVP (17:28)
--- NOTE | 2022-05-08 18:34 | DI.VRAD_ITS ---
PROCEDURE INFORMATION: Exam: XR Chest Exam date and time: 05/08/2022 5:39 PM Age: 57 years old Clinical indication: Other: Worsening pneumonia TECHNIQUE: Imaging protocol: Radiologic exam of the chest. Views: 1 view. COMPARISON: XR PORTABLE CHEST AP 05/08/2022 6:35 AM FINDINGS: Tubes, catheters and devices: There has been interval placement of a left-sided PICC which is partially obscured but terminates in the expected location of the cavoatrial junction. Lungs: There is persistent diffuse opacity throughout the left hemithorax. There is redemonstration of mild patchy alveolar opacity on the right, grossly stable compared with the prior exam. Pleural spaces: A pleural effusion is not excluded on the left. No right-sided pleural effusion is seen. No pneumothorax is demonstrated. Heart/Mediastinum: The heart is completely obscured. Bones/joints: The visualized bony structures appear grossly intact. There appears to be an old distal right clavicle fracture. IMPRESSION: 1. Diffuse whiteout of the left hemithorax with mild patchy alveolar opacity on the right, grossly stable compared with the prior exam. 2. Interval placement of a left-sided PICC with its tip in the expected location of the cavoatrial junction. Dictated and Authenticated by: Angel Vasquez MD. Ordering:.[facility] Leighton Du MD
[2022-05-08] MEDS: Famotidine 20 MG TAB PO (20:56)
--- NOTE | 2022-05-08 22:19 | NUR.NOTE ---
Nursing Note: 1919- this RN and Vito Moore gave report to shift supervisor melting icu nurse whos receiving this patient. this rn and eren kelly then took patient over with high flow o2 when room was ready around 1939
[2022-05-09] VITALS (201 sets, daily range): BP systolic 75–159; BP diastolic 44–91; PULSE 74–147; RESP 2–45; TEMP 31–37.9; O2SAT 85–97
[2022-05-09] MEDS: Ketorolac 15 MG/ML VIAL IVP (00:10)
[2022-05-09] MEDS: PIPERACILLIN/TAZO 4.5 GM in Normal Saline 100 ML IVPB (02:10)
[2022-05-09] MEDS: DOXYCYCLINE 100 MG in Normal Saline 100 ML IVPB (05:47)
[2022-05-09] MEDS: ACETAMINOPHEN 1,000 MG/100 ML BTL 400 MG IVPB (05:51)
[2022-05-09 06:21] LABS: Absolute Lymphocyte Count 0.43 10^3/uL (1.2-3.4); Absolute Neutrophil Count 12.27 10^3/uL (1.2-6.7); Basophils % 0.6; HCT 40.2 % (40.0-50.0); HGB 13.1 g/dL (13.5-17.5); Immature Grans % 1.4; MCHC 32.6 % (32.0-36.0); MCV 89 fL (80-95); MPV 8.6 fL (8.0-11.0); Platelet Count 330 10^3/uL (130-400); RBC 4.51 10^6/uL (4.36-5.78); RDW 14.2 % (11.8-14.1); RDW-SD 46.2 fL; WBC 14.43 10^3/uL (4.4-10.8)
--- NOTE | 2022-05-09 06:31 | NUR.NOTE ---
0500-pt coughing non stop. anxious. given 0.5 ativan po iven. codiene with promethazine cough syrup given. OOB several times to vo8id and for bms on commode. doesn't think he will fall down and continues to climb even after being asked not to do so. breathing easier after meds.
[2022-05-09 06:32] LABS: Absolute Basophil Count 0.09 10^3/uL (0.0-0.2); Absolute Eosinophil Count 0.14 10^3/uL (0.0-0.7)
[2022-05-09 06:56] LABS: ALT 31 U/L (16-63); AST 34 U/L (15-37); Albumin 1.6 g/dL (3.4-5.0); Alkaline Phosphatase 70 U/L (46-116); Anion Gap 12.6 mmol/L (3-11); BUN 25 mg/dL (7-18); CO2 21.4 mmol/L (21.0-32.0); Calcium 7.8 mg/dL (8.5-10.1); Chloride 97 mmol/L (98-107); Glucose 179 mg/dL (74-106); Potassium 4.7 mmol/L (3.5-5.1); Sodium 131 mmol/L (136-145); Total Protein 5.5 g/dL (6.4-8.2)
[2022-05-09] MEDS: Atorvastatin 40 MG TAB PO (07:40)
[2022-05-09] MEDS: Folic Acid 1 MG TAB PO (07:41)
[2022-05-09] MEDS: Famotidine 20 MG TAB PO ×2 (07:41→19:14)
[2022-05-09] MEDS: Metoprolol CR 100 MG TABCR PO (07:41)
[2022-05-09] MEDS: Benzonatate 200 MG CAP PO ×3 (07:42→19:15)
[2022-05-09] MEDS: guaiFENesin 600 MG TABCR PO ×2 (07:42→19:15)
[2022-05-09] MEDS: Enoxaparin 40 MG/0.4 ML SYR SC (07:45)
[2022-05-09] MEDS: Normal Saline Flush 10 ML SYR IVP ×5 (07:51→19:15)
[2022-05-09] MEDS: Furosemide 20 MG/2 ML VIAL IVP ×2 (07:53→15:43)
[2022-05-09 08:04] LABS: Gram Smear Result Neutrophils Present
[2022-05-09] MEDS: Insulin Aspart 300 UNITS/3 ML PEN SC ×3 (08:20→23:18)
--- NOTE | 2022-05-09 08:50 | NUR.NOTE ---
Patient very restless this morning. Per RN, I got the patient up into chair with chair alarm on for safety. Patient also complaining of back spasms and provided aquaK pack for comfort. RN aware. Stuart Stanford Note:
--- NOTE | 2022-05-09 09:00 | CMPROGNOTE_ITS ---
- If Service Date Differs Date of service: 05/09/22 Time of Service: 09:00 Care Management Progress Note S/O: Deidre was transferred to the ICU, he is being closely monitored and treated for fungal pneumonia. He day #2 s/p bronchoscopy with [employer]; Dr. Huitron, please refer to note for detailed information. Transfer being sought; no bed availability at this time. CM continues to follow. A: 57 year old male admitted to [facility] 05/02/22 for Pneumonia. P: Undetermined plan at this time, as transfer is indicated; currently no tertiary bed availability.
--- NOTE | 2022-05-09 09:17 | W.PULMCC ---
General Date of Service Date of service: 05/09/22 Time of Service: 07:30 Reason for Admission to ICU: Hypoxic respiratory failure Assessment and Plan Assessment and plan (1) Blastomycosis: Status: Acute (2) Leukocytosis: Status: Acute (3) Diabetes: Status: Chronic (4) Respiratory failure with hypoxia: Status: Acute (5) Delirium: Status: Acute (6) Sepsis: Status: Acute Assessment and plan: This is a 57 yo with diabetes admitted for a multilobar pneumonia. He has been on IV antibiotics for several days without significant improvement. He has had 2 sputum cultures but this returned as normal bryn. His bronchoscopy was not classic for infection, but he remains febrile and his imaging is not improving, and seems to be worsening on the other side so we will continue to antibiotics. We will be aggressive about airway clearance. His bronchoscopy found broad based budding yeast on fungal stain and a lymphocytic BAL consistent with blastomycosis. His fungitell was negative but fungitell will likely not be positive when blasto is in its yeast phase. He does not have other obvious organ involvement (no skin rash, normal head CT, no pyuria) but he does have severe pulmonary disease so I will start him on amphoteracin B IV. I called and consulted with Dr. Castro at [facility] infectious disease who recommended IV amphoteracin B at 3-5mg/kg q 24h for 1-2 weeks. After which with improvement he can be switched to itraconazole PO. Once he is getting ready for D/C, [facility] ID needs to be called (can ask for Dr. Castro) so they can arrange appropriate follow up for continued management. I am hopeful that with continued airway clearance and supportive care with the anti-fungals, we will begin to improve. Recommendations Pulmonary: Hypoxic respiratory failure - Levalbuterol nebs QID given tachycardia - Volera airway clearance - IS and Acapella - out of bed to chair - avoid volume overload - oxygen support with HFNC or nasal cannula - avoid any PAP - no CPAP/BiPAP given secretions Cardiac: Tachycardia - sinus, matteo monitor Renal: No acute concerns - strict I/O's I&O: Intake & Output 05/06/22 05/07/22 05/08/22 05/09/22 23:59 23:59 23:59 23:59 Intake Total 3600 / 3600 940 / 1940 2900 / 2900 420 / 420 Output Total 2 / 2 2 / 2 1400 / 1400 Balance 3600 / 3600 938 / 1938 2898 / 2898 -980 / -980 Weight 105.942 kg 107 kg 114.1 kg Daily Fluid Goal:: even to slightly negative GI Nutrition: OK for PO diet Date of Last Bowel Movement: 05/09/22 Infectious Disease: Severe pulmonary blastocytosis - IV liposomal amphoteracin B 5mg/kg (can go down to 3) daily for 1-2 weeks depending on clinical improvement/drug tolerance - will need to monitor LFT's daily while on this - Dr. Castro at [facility] ID consulted and assisted with med dosing and duration recommendations - After 1-2 weeks of liposomal amphoteracin B the plan will be to transition to PO itraconazole with the following schedule: - Itraconazole 200mg tid for a few days and then 200mg bid for 6-12 months - once patient is getting ready for discharge, Dr. Castro should be called to discuss and so [facility] can arrange for appropriate follow up with them for this - daily skin exams - q shift neuro check - D/C'ed ketorolac given amph B Hematologic: No acute concerns Neurologic: Delirium - likely due to sepsis - avoid deliriogenic drugs - Ativan, benadryl, etc - on Precedex gtt - titrate to RASS of 0-1 - starting Seroquel qhs - q shift neuro checks - if acute change repeat head CT and get a lumbar punture for fungal stain and culture Endocrine: Diabetes - SSI Lines: PICC Prophylaxis: Lovenox Famotidine Code Status: Resuscitation Status Full Code Subjective Critical and life-threatening events over the past 24 hours: Deidre was transferred to the ICU as he was looking more toxic and was placed on HFNC. His BAL and bronchial washings have broad based budding yeast present and his BAL cell diff was 37% lymphocytes. Deidre is still exhausted and certainly has delirium from sepsis. His HFNC was set to 60% and only 25L flow. Exam Narrative Exam Narrative: Gen: toxic appearing, normal respiratory effort, well-nourished HENT: PERRL Chest: No respiratory distress, normal appearance of chest, clear to auscultation bilaterally, scattered crackles, normal inspiratory effort Heart: regular rate and rhythym, no murmurs, rubs or gallops Abdomen: Non-distended, soft, non tender Extremities: No clubbing, edema, cyanosis, rashes Neuro: AAOx3 , non focal Psych: cooperative, appropriate mental affect Most Recent VS/Results Last Vital Signs Temp 37.9 C H 05/09/22 01:00 Pulse 140 H 05/09/22 05:00 Resp 38 H 05/09/22 05:50 BP 159/91 H 05/09/22 05:00 Pulse Ox 93 05/09/22 05:50 Laboratory Results - last 24 hr 05/03/22 05/04/22 05/07/22 08:18 13:10 10:10 WBC RBC Hgb Hct MCV MCH MCHC RDW Plt Count MPV Immature Gran % Neutrophils % Lymphocytes % Monocytes % Eosinophils % Basophils % Nucleated RBC % Absolute Neutrophils Absolute Lymphocytes Absolute Monocytes Absolute Eosinophils Absolute Basophils Sodium Potassium Chloride Carbon Dioxide Anion Gap BUN Creatinine Estimated GFR/1.73 m2 Glucose Calcium Total Bilirubin AST ALT Alkaline Phosphatase Total Protein Albumin Fluid Type Fluid Tot Bilirubin Cyclic Citrull Peptide <2.5 BEBO Titer Not Applicable BEBO Titer 2 Not Applicable BEBO Titer 3 Not Applicable BEBO Interpretation Negative ANCA Immunofluorescen Negative ANCA Titer Not Applicable ANCA Pattern Not Applicable Gram Stain A.phagocytophil DNA PCR Negative B. divergens/MO-1 PCR Negative Babesia duncani (PCR) Negative Babesia microti DNA PCR Negative Borrelia (PCR) Negative E.chaffeensis DNA (PCR) Negative E.ewingii/canis DNA PCR Negative E. muris-like DNA (PCR) Negative Aerobic Culture B-(1,3)-D-Glucan Quant <31 B-(1,3)-D-Glucan Qual Negative Ref Test Specimen Type Ref Report Verification 05/07/22 05/07/22 05/08/22 12:35 12:35 Unknown WBC RBC Hgb Hct MCV MCH MCHC RDW Plt Count MPV Immature Gran % Neutrophils % Lymphocytes % Monocytes % Eosinophils % Basophils % Nucleated RBC % Absolute Neutrophils Absolute Lymphocytes Absolute Monocytes Absolute Eosinophils Absolute Basophils Sodium Potassium Chloride Carbon Dioxide Anion Gap BUN Creatinine Estimated GFR/1.73 m2 Glucose Calcium Total Bilirubin AST ALT Alkaline Phosphatase Total Protein Albumin Fluid Type Cancelled Fluid Tot Bilirubin Cancelled Cyclic Citrull Peptide BEBO Titer BEBO Titer 2 BEBO Titer 3 BEBO Interpretation ANCA Immunofluorescen ANCA Titer ANCA Pattern Gram Stain Neutrophils Present Neutrophils Present A.phagocytophil DNA PCR B. divergens/MO-1 PCR Babesia duncani (PCR) Babesia microti DNA PCR Borrelia (PCR) E.chaffeensis DNA (PCR) E.ewingii/canis DNA PCR E. muris-like DNA (PCR) Aerobic Culture No Growth No Growth B-(1,3)-D-Glucan Quant B-(1,3)-D-Glucan Qual Ref Test Specimen Type Not Applicable Not Applicable Ref Report Verification Not Applicable Not Applicable 05/09/22 05/09/22 05:19 05:19 WBC 14.43 H RBC 4.51 Hgb 13.1 L Hct 40.2 MCV 89 MCH 29.0 MCHC 32.6 RDW 14.2 H Plt Count 330 MPV 8.6 Immature Gran % 1.4 Neutrophils % 85.0 Lymphocytes % 3.0 Monocytes % 9.0 Eosinophils % 1.0 Basophils % 0.6 Nucleated RBC % 0.0 Absolute Neutrophils 12.27 H Absolute Lymphocytes 0.43 L Absolute Monocytes 1.30 H Absolute Eosinophils 0.14 Absolute Basophils 0.09 Sodium 131 L Potassium 4.7 Chloride 97 L Carbon Dioxide 21.4 Anion Gap 12.6 H BUN 25 H Creatinine 1.0 Estimated GFR/1.73 m2 >= 60.00 Glucose 179 H Calcium 7.8 L Total Bilirubin 1.0 AST 34 ALT 31 Alkaline Phosphatase 70 Total Protein 5.5 L Albumin 1.6 L Fluid Type Fluid Tot Bilirubin Cyclic Citrull Peptide BEBO Titer BEBO Titer 2 BEBO Titer 3 BEBO Interpretation ANCA Immunofluorescen ANCA Titer ANCA Pattern Gram Stain A.phagocytophil DNA PCR B. divergens/MO-1 PCR Babesia duncani (PCR) Babesia microti DNA PCR Borrelia (PCR) E.chaffeensis DNA (PCR) E.ewingii/canis DNA PCR E. muris-like DNA (PCR) Aerobic Culture B-(1,3)-D-Glucan Quant B-(1,3)-D-Glucan Qual Ref Test Specimen Type Ref Report Verification Review of Systems All systems reviewed & are unremarkable except as noted in HPI and below Time spent with patient Time spent in Critical Care: 110 Time spent in Critical care included: Coordination of care, Chart review, Documenting critically ill care, Time at immediate bedside, Discussing critically ill care with other medical staff and Discussing care with family members Multi-Disciplinary Checklist Lines/Tubes CENTRAL LINE: yes, Central Line Day#: 1 Note: PICC ARTERIAL LINE: no RAMIREZ: no ENDOTRACHEAL TUBE: no ICU Maintenance GLUCOSE 140-180mg/dL: yes NUTRITION AT GOAL: yes PRESSURE ULCER: no RESTRAINTS: no ANTIBIOTICS(if yes, consider Stewardship): Yes Social Issues FAMILY UPDATED: yes PT/OT: no, Reason/Intervention: once clinically improved CODE STATUS: Full Prophylaxis DVT PROPHYLAXIS: yes GI PROPHYLAXIS: yes, Indication: Sepsis
--- NOTE | 2022-05-09 09:42 | W.INDIABCONS ---
Date of service: 05/09/22 Time of Service: 09:42 Diabetes Inpatient Consult Reason for Visit: dm DESCRIPTION/ASSESSMENT: 57 year old male admitted with PNA, sepsis with hx of Dm2. Most recent A1C: 7.0% indicates optimal glycemic management. Home MD meds: Farxiga, glimepiride providing great coverage. Following diabetic diet with adequate intake. INTERVENTION: none needed PLAN: will monitor po intake, labs, weight Time Spent in Nutritional Counseling and Treatment: 0
--- NOTE | 2022-05-09 09:48 | W.PM.PROGNOT ---
Date of Service Date of service: 05/09/22 Time of Service: 09:49 Assessment and Plan Assessment and plan (1) Fungal pneumonia: Status: Acute Assessment and plan: Begin amphotericin B with careful monitor renal function. Discontinue any NSAIDs or any other medications that could affect his renal function. Continue I-S and acapella. Avoid steroids in the setting of fungal pneumonia. Continue high flow nasal cannula for supportive treatment. Wean as tolerated to a regular nasal cannula. Advance diet. Critical care time spent interviewing and examining the patient, reviewing studies, discussing case with patient's nurse and consulting physicians was 30 minutes (2) CAP (community acquired pneumonia): Status: Acute Assessment and plan: as above (3) Sepsis: Status: Acute (4) Chest wall pain: Status: Acute Assessment and plan: will use a combination of tramadol and Lidoderm patches and Tylenol. (5) Diabetes mellitus type 2, noninsulin dependent: Status: Chronic Assessment and plan: A1C 7.0. Continue SSI. Holding oral hypoglycemic agents due to possible interactions with linezolid. (6) DVT prophylaxis: Status: Acute Assessment and plan: enoxaparin renewed Subjective Subjective Interval history since last seen: Patient still has cough productive of a yellowish-orange sputum. He seems less dyspneic this morning than he was last night. I went over the results of his preliminary BAL report which shows budding hyphae consistent with a fungal pneumonia. His confirmed that a coworker came down ill but at the same time that her did with similar symptoms of high fevers cough and shortness of breath. 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 I explained to the and the patient that he most likely has blastomycosis which is an endemic fungus in the soil. I told her that Dr. Smart is working with pharmacy to obtain the appropriate antifungal medication. We initially started him on voriconazole but we will switch him to IV Amphotericin initially and then down step to itraconazole at discharge. Exam Narrative Exam Narrative: Deidre sitting on his chair try and eat some breakfast having some paroxysms of coughing. He is alert and oriented. Lungs with diffuse expiratory wheezes and rhonchi Heart is regular but tachycardic Abdomen soft nondistended Objective Last Vital Signs Temp 37.9 C H 05/09/22 01:00 Pulse 140 H 05/09/22 05:00 Resp 38 H 05/09/22 05:50 BP 159/91 H 05/09/22 05:00 Pulse Ox 93 05/09/22 05:50 Laboratory Results - last 24 hr 05/03/22 05/04/22 05/07/22 08:18 13:10 10:10 WBC RBC Hgb Hct MCV MCH MCHC RDW Plt Count MPV Immature Gran % Neutrophils % Lymphocytes % Monocytes % Eosinophils % Basophils % Nucleated RBC % Absolute Neutrophils Absolute Lymphocytes Absolute Monocytes Absolute Eosinophils Absolute Basophils Sodium Potassium Chloride Carbon Dioxide Anion Gap BUN Creatinine Estimated GFR/1.73 m2 Glucose Calcium Total Bilirubin AST ALT Alkaline Phosphatase Total Protein Albumin Fluid Type Fluid Tot Bilirubin Cyclic Citrull Peptide <2.5 BEBO Titer Not Applicable BEBO Titer 2 Not Applicable BEBO Titer 3 Not Applicable BEBO Interpretation Negative ANCA Immunofluorescen Negative ANCA Titer Not Applicable ANCA Pattern Not Applicable Gram Stain A.phagocytophil DNA PCR Negative B. divergens/MO-1 PCR Negative Babesia duncani (PCR) Negative Babesia microti DNA PCR Negative Borrelia (PCR) Negative E.chaffeensis DNA (PCR) Negative E.ewingii/canis DNA PCR Negative E. muris-like DNA (PCR) Negative Aerobic Culture B-(1,3)-D-Glucan Quant <31 B-(1,3)-D-Glucan Qual Negative Ref Test Specimen Type Ref Report Verification 05/07/22 05/07/22 05/08/22 12:35 12:35 Unknown WBC RBC Hgb Hct MCV MCH MCHC RDW Plt Count MPV Immature Gran % Neutrophils % Lymphocytes % Monocytes % Eosinophils % Basophils % Nucleated RBC % Absolute Neutrophils Absolute Lymphocytes Absolute Monocytes Absolute Eosinophils Absolute Basophils Sodium Potassium Chloride Carbon Dioxide Anion Gap BUN Creatinine Estimated GFR/1.73 m2 Glucose Calcium Total Bilirubin AST ALT Alkaline Phosphatase Total Protein Albumin Fluid Type Cancelled Fluid Tot Bilirubin Cancelled Cyclic Citrull Peptide BEBO Titer BEBO Titer 2 BEBO Titer 3 BEBO Interpretation ANCA Immunofluorescen ANCA Titer ANCA Pattern Gram Stain Neutrophils Present Neutrophils Present A.phagocytophil DNA PCR B. divergens/MO-1 PCR Babesia duncani (PCR) Babesia microti DNA PCR Borrelia (PCR) E.chaffeensis DNA (PCR) E.ewingii/canis DNA PCR E. muris-like DNA (PCR) Aerobic Culture No Growth No Growth B-(1,3)-D-Glucan Quant B-(1,3)-D-Glucan Qual Ref Test Specimen Type Not Applicable Not Applicable Ref Report Verification Not Applicable Not Applicable 05/09/22 05/09/22 05:19 05:19 WBC 14.43 H RBC 4.51 Hgb 13.1 L Hct 40.2 MCV 89 MCH 29.0 MCHC 32.6 RDW 14.2 H Plt Count 330 MPV 8.6 Immature Gran % 1.4 Neutrophils % 85.0 Lymphocytes % 3.0 Monocytes % 9.0 Eosinophils % 1.0 Basophils % 0.6 Nucleated RBC % 0.0 Absolute Neutrophils 12.27 H Absolute Lymphocytes 0.43 L Absolute Monocytes 1.30 H Absolute Eosinophils 0.14 Absolute Basophils 0.09 Sodium 131 L Potassium 4.7 Chloride 97 L Carbon Dioxide 21.4 Anion Gap 12.6 H BUN 25 H Creatinine 1.0 Estimated GFR/1.73 m2 >= 60.00 Glucose 179 H Calcium 7.8 L Total Bilirubin 1.0 AST 34 ALT 31 Alkaline Phosphatase 70 Total Protein 5.5 L Albumin 1.6 L Fluid Type Fluid Tot Bilirubin Cyclic Citrull Peptide BEBO Titer BEBO Titer 2 BEBO Titer 3 BEBO Interpretation ANCA Immunofluorescen ANCA Titer ANCA Pattern Gram Stain A.phagocytophil DNA PCR B. divergens/MO-1 PCR Babesia duncani (PCR) Babesia microti DNA PCR Borrelia (PCR) E.chaffeensis DNA (PCR) E.ewingii/canis DNA PCR E. muris-like DNA (PCR) Aerobic Culture B-(1,3)-D-Glucan Quant B-(1,3)-D-Glucan Qual Ref Test Specimen Type Ref Report Verification PAWSS Have you Been Recently Intoxicated or Drunk Within the Last 30 days?: No Have you Ever Experienced Previous Episodes of Alcohol Withdrawal?: No Have you ever Experienced Withdrawal Seizures?: No Have you ever Experienced Delirium Tremens(DT)s?: No Have you ever undergone Alcohol Rehabilitation Treatment (i.e, inpt ot outpatient treatment programs)?: No Have you ever Experienced Blackouts?: No Have you ever Combined Alcohol with other Downers within the last 90 days?: No Have you ever Combined Alcohol with any other Substance of Abuse during the last 90 days?: No Positive Blood Alcohol level on Presentation? [PCS.BAL]: No Evidence of Increased Autonomic Activity (i.e. HR>120, tremor, sweating, agitation, nausea)?: No Result: 0
[2022-05-09] MEDS: dexmedeTOMidine IN 0.9 % NACL 400 MCG/100 ML BTL 11.41 MCG IVPB (09:54)
[2022-05-09] MEDS: Acetaminophen 325 MG TAB 650 MG PO ×2 (11:42→15:47)
[2022-05-09] MEDS: LORazepam 0.5 MG TAB PO (11:42)
[2022-05-09] MEDS: Lidocaine 5% Patch 1 PATCH TP (11:43)
[2022-05-09] MEDS: traMADol 50 MG TAB PO (15:47)
[2022-05-09] MEDS: dexmedeTOMidine IN 0.9 % NACL 400 MCG/100 ML BTL 19.968 MCG IVPB ×2 (15:51→19:28)
[2022-05-09] MEDS: Levalbuterol 1.25 MG/3 ML UPD VIAL UPD ×2 (16:20→19:15)
[2022-05-09] MEDS: Ondansetron 4 MG/2 ML VIAL IVP (16:54)
--- NOTE | 2022-05-09 17:02 | CHAPLAIN ---
Deidre was resting when I visited. I spoke with his . She said she and her sister in law are taking turns staying with Deidre, and she needs to continue to go to work, as that is where they get their insurance. 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 Their sons work with him
[2022-05-09] MEDS: Lidocaine 2% Jelly 11 ML SYR (19:32)
[2022-05-09 19:54] LABS: BE -5 mmol/L (-2-3); HCO3 23 mmol/L (22-26); pCO2 52 mmHg (35-45); pH 7.24 (7.35-7.45); pO2 81 mmHg (80-105); sO2 96 % (95-98); tCO2 21 mmol/L (23-27)
[2022-05-09 20:01] LABS: FIO2 80 %; Site Right Radial
[2022-05-09] MEDS: PROPOFOL 1,000 MG/100 ML BTL 34.23 MG IVPB (21:25)
--- NOTE | 2022-05-09 21:51 | DI.RAD_ITS ---
Exam(s) XR PORTABLE CHEST AP EXAM: XR PORTABLE CHEST AP CLINICAL HISTORY: intubation, placement verification. TECHNIQUE: 2D digital imaging was performed. COMPARISON: CR,XR XR PORTABLE CHEST AP from 05/08/2022 FINDINGS: Single AP portable view. The patient is now intubated. Distal tip of the ET tube is 3 cm above the terry. There is also an NG tube. Distal tip appears to be in stomach but difficult to assess because of exposure. Left subclavian central line. Distal tip at the SVC RA junction Heart size is difficult to assess as it is obscured. There is complete opacification of the left hemithorax now evident. There is also increasing patchy infiltrate in the opposite-right lung. No obvious pleural fluid on the right side. No pneumothorax. IMPRESSION: Now complete opacification left hemithorax. Also worsening infiltrates right lung. ET tube in satisfactory position DATA REPOSITORY: RADIATION DOSE DELIVERED: All CT scans at this facility use at least one of these dose optimization techniques: automated exposure control; mA and/or kV adjustment per patient size (includes targeted e xams where dose is matched to clinical indication); or iterative reconstruction.
--- NOTE | 2022-05-09 21:52 | W.ANESAIR ---
Airway Management Note Procedure Date and Time DO NOT use this note for patients in the OR, Use Intraop Record Instead Date Performed: 05/09/22 Procedure Time: : Procedure Location Procedure Location: Intensive Care Unit Requesting Provider: Xena Pinto Number of Previous Intubation attempts by other providers: 0 Procedure Type Procedure Type: Urgent Pre-Induction Setup Sterility: Hand Hygiene and Surgical Mask Preinduction Setup: Standard monitors applied, BVM at bedside, Suction ready, Airway equipment ready, Medications ready, IV/IO access patent & flowing, Post induction medications ready and Other Induction Induction Time: 21:25 Induction setup: Pt. evaluated prior to induction, Head of Bed Elevated, Apneic Oxygenation, NRB - High Flow (on flush), Bag Valve Mask Ventilation, Ear to Sternal Notch and Rapid Sequence Induction Induction Medications (Indicate Dose Given): Ketamine IV Dose:: 100 mg, Rocuronium IV Dose:: 150 mg and Norepinephrine (mcg/kg/min) Dose:: See DATABASE ADMINISTRATION [id number] multi sensor operator. Mask Ventilation: Easy Airway Device Airway Type: Intubation Laryngoscopy: Atraumatic Laryngoscopy and Teeth Intact Airway Grade: 1 Airway Blades: Glidescope 3 Endotracheal Tube: Oral and 8.0mm ETT Depth Where Secured (cm): 24 Placement Confirmation: Secured with commercial device, ETCO2 waveform present and Depth to teeth Number of Attempts (See previous attempts in note section): 1 Post Induction Management Post Induction Medications (Indicate Dose Given): Propofol (mcg/kg/min) Dose:: 50 mcg/kg/min and Norepinephrine IV (mcg/kg/min) Dose:: see DATABASE ADMINISTRATION ASSOCIATEs3b multi sensor operator. Gastric Tube Gastric Tube: Placed by Other Person Procedure Complications Procedure Complications: None Procedure Outcome Procedure Outcome: Successful Procedure Comment: Was requested to provide airway management by Dr. Pinto due to raising paco2, declining pao2/increasing fio2, and increased pt fatigue. Pts was called, plan was discussed, plan was also discussed with the pt. MAP was <65 on arrival, norepi gtt was started and titrate to maintain MAP > 65 mmhg. given the requirement of vasoactives prior to intubation a right radial arterial line was placed (see separate note). On placement of art line and readyment of all equipment the plan was again discussed with the pt who asked to call his and he was able to briefly speak with her. a time out was performed, Norepi increased to a MAP ~ 80 mmhg, and induction was performed. Jaems SPO2 was 92%. lung US was performed, good sliding on the right, no visible sliding on the left. CXR shows ETT ~4 cm above terry and it was advanced a cm to 24 at the teeth. Proceduralist Performed By: Niles Vaca
--- NOTE | 2022-05-09 22:07 | W.ANESVAS ---
Arterial Line Placement Date Performed: 05/09/22 Procedure Time: 20:00 Procedure Location: Intensive Care Unit Requesting Provider: Niles Vaca Timeout Performed: No Sedation Given (Indicate Dose Given): No Sedation given Patient Mental Status: Other Sterility: Hand Hygiene, Surgical Cap, Surgical Mask, Sterile Gloves, Sterile Drape/Sheet and Chlorhexidine Laterality: Right Insertion Site: Radial Arterial Line Catheter: 20G Arrow Arterial Line Procedure: Vessel accessed with catheter over needle, Guidewire placed with ease, Catheter placed without resistance and Guidewire removed Dressing: Tegaderm Applied Ultrasound: Not Used Number of Attempts (See previous attempts in note section): 1 Procedure Tolerated: No Complications Procedure Outcome: Successful Performed By: Niles Vaca
--- NOTE | 2022-05-09 22:18 | DI.VRAD_ITS ---
PROCEDURE INFORMATION: Exam: XR Chest Exam date and time: 05/09/2022 9:28 PM Age: 57 years old Clinical indication: Device placement; Ett placement (vent status) TECHNIQUE: Imaging protocol: Radiologic exam of the chest. Views: 1 view. COMPARISON: XR PORTABLE CHEST AP 05/08/2022 5:39 PM FINDINGS: Tubes, catheters and devices: Endotracheal tube tip is 4.7 cm superior to the terry. Enteric tube overlies the esophagus and stomach, tip below the field of view. Monitoring wires noted. Left arm PICC in place, tip mid superior vena cava. Lungs: Left hemithorax is densely opacified, increased from earlier exams. Moderate patchy airspace opacity continues to progress in the right lung. Pleural spaces: Unremarkable. No pleural effusion. No pneumothorax. Heart/Mediastinum: Cardiac borders are obscured. Bones/joints: Unremarkable. IMPRESSION: 1. Endotracheal tube appropriate in position. 2. Progressive multifocal pneumonia and/or edema. 3. Large left pleural effusion suspected. Dictated and Authenticated by: Orlin Ray MD. Ordering:PRIYANKA Cage MD
[2022-05-10] VITALS (52 sets, daily range): BP systolic 94–136; BP diastolic 54–78; PULSE 109–131; RESP 14–28; TEMP 36; O2SAT 90–92
--- NOTE | 2022-05-10 00:04 | W.PM.DS.N ---
Date of service: 05/10/22 Time of Service: 00:04 DS: Diagnosis Discharge Diagnosis (1) Respiratory failure with hypoxia: Start date: 05/02/22 Status: Acute Asessment and Plan: This is a 57-year-old gentleman who was admitted with left pneumonia and hypoxemia with progressive respiratory failure and fever during his hospital course. He was treated initially for acute acquired pneumonia with respiratory support but continued to spike fevers and worsen. Eventually was placed in ICU because of worsening respiratory status and increased oxygen needs and fatigue requiring intubation. Bronchoscopy performed the day of transfer revealed fungal pneumonia with identification pending but suspected blastomycosis. Patient was placed on Amphotericin. He has been on vancomycin and Rocephin. Patient was still difficult to oxygenate at transfer. (2) Sepsis: Start date: 05/02/22 Status: Acute Asessment and Plan: Secondary to pneumonia with support throughout hospital stay. (3) Blastomycosis: Start date: 05/09/22 Status: Acute Asessment and Plan: Diagnosis on day of transfer suspected with patient based on Amphotericin. (4) Delirium: Start date: 05/02/22 Status: Acute Asessment and Plan: Secondary to hypoxemia and fever. (5) Diabetes: Status: Chronic Asessment and Plan: Covered with glucometer measurements and short acting insulin during hospital stay. Discharge Plan Disposition Patient Disposition: [facility] Condition: Serious Discharge Details Reason For Visit: Pneumonia Admit Date/Time: 05/02/22 22:19 Admit Provider: Clarence Morales Attending Provider: Clarence Morales Primary Care Provider: Maxwell Viera Hospital Course Hospital Course: See history physical and progress as well as consultation notes and procedure notes. Is a 57-year-old gentleman who has a history of hypertension with hyperlipidemia and diabetes as an outpatient who presented with pleuritic chest pain and left pneumonia eventually diagnosed as fungal pneumonia with persistent hypoxemia and progressive disease changing from IV vancomycin and Rocephin to IV insertion on the day of transfer. Physical exam was stable with decreased breath sounds and worsening hypoxemia the patient was sedated and intubated and transferred. Pulmonary consultation did take place the last days of his hospital stay with probable diagnosis of blastomycosis the patient having exposure at work. A coworker also had a similar infection. Just prior to transfer the patient was intubated because of persistent hypoxemia and fatigue. Arterial blood gas did reveal pH of 7.24 with PCO2 57 and PO2 of 81 on 100% FiO2. Vent settings and end-tidal of 67 with tidal volume 530, rate 16, FiO2 100% and PEEP 6, adjustments were made because of persistent hypoxemia prior to transfer. Patient did have hyponatremia which is stable most likely secondary to pneumonia and acute anemia with a stable most likely also secondary to acute infection. He has persistent leukocytosis and elevated CRP with good respiratory well-controlled with hemoglobin A1c of 7 showing fair control as an outpatient. Protein status was low with low calcium. Disposition: Patient is being transferred to [facility] ICU intubated with mechanical ventilation via ambulance with ACLS protocol. He will be Dr. Veronica's service, Green [facility]. He is a full code. Home Meds and New Rx's Prescriptions: No Action amlodipine 10 MG tablet 10 mg PO DAILY glimepiride [Amaryl] 4 MG tablet 2 mg PO DAILY metformin 500 MG tablet extended release 24 hr 1,000 mg PO BID atorvastatin 40 mg Tablet 40 mg PO DAILY azithromycin 250 mg Tablet 250 mg PO DAILY Rx Instructions: start on day 2 of therapy chlorthalidone 25 mg Tablet 25 mg PO DAILY benzonatate 100 mg capsule 200 cap PO TID PRN PRN cefdinir 300 mg Capsule 300 mg PO BID losartan 100 mg Tablet 100 mg PO DAILY Farxiga 5 mg Tablet 5 mg PO DAILY metoprolol succinate [Toprol XL] 100 mg Tablet Extended Release 24 Hr 100 mg PO DAILY Discharge Instructions Activity:: bedrest Diet:: NPO Discharge Orders Discharge Orders: Discharge Order (Routine); Ordered 05/10/22 Ordered By: Frank Landon Discharge Data Discharge Comment: edition DS: Summary Time Spent with Patient providing and/or coordinating discharge services: Greater than 30 minutes Status at Discharge Functional status at discharge: bed bound Overall status at discharge: other (Critically ill) Mental Status: other (Sedated and intubated) Speech and Movement: other (Sedated and intubated) Mood: other (Sedated and intubated) Affect: other (Sedated and intubated) Exam Narrative Exam Narrative: General: Patient is sedated and intubated with head of 45 degree angle, HEENT: Normocephalic, eyes with pupils equal react light symmetrically, and sclera anicteric. Oropharynx with moist mucosa. Neck: Supple JVD. Lungs: Decreased aeration left hemithorax with no focalizing rales or rhonchi vascular breath sounds over the posterior aspect with patient examined supine, hyper aeration on the right but ventilation Heart: tachycardic with no murmur or gallop. Abdomen: Obese contour, soft and nontender to palpation with bowel sounds positive all quadrants. No palpable hepatosplenomegaly. Genitalia/rectal: Roberson catheter in place. Exam otherwise deferred. Extremities: Nonpitting edema upper and lower extremities with no cyanosis or clubbing. Skin: Moist, warm and normal color. Neuro: Patient paralyzed ambulation with sedation. Psych: Patient sedated and intubated. Psych Mental Status: other (Sedated and intubated) Speech and Movement: other (Sedated and intubated) Mood: other (Sedated and intubated) Affect: other (Sedated and intubated) DS: Data Vitals/I&O Vitals and I&O: Vital Signs Temperature 36 C L 05/09/22 19:45 Temperature Source Tympanic 05/09/22 19:45 Pulse 113 H 05/09/22 23:01 Pulse Rhythm Regular 05/08/22 17:30 Pulse 121 H 05/09/22 23:04 Respiratory Rate 16 05/09/22 23:04 Respiratory Effort Accessory Muscle Use 05/09/22 19:45 Respiratory Depth Shallow 05/09/22 19:45 Respiratory Pattern Tachypnea 05/09/22 19:45 Blood Pressure 126/70 05/09/22 23:01 Blood Pressure Mean 82 05/09/22 23:01 Blood Pressure Position Sitting 05/09/22 19:45 Pulse Oximetry 93 05/09/22 23:04 Respiratory End-tidal CO2 63 05/09/22 23:04 Oxygen Delivery Method Hi Flow Nasal Cannula 05/09/22 19:45 Oxygen Flow Rate 50 05/09/22 19:45 Fraction of Inspired Oxygen (FIO2) 100 05/09/22 21:24 Pain Level 7 05/09/22 16:47 Comment 05/08/22 00:44 Arterial Systolic 142 05/09/22 23:04 Arterial Diastolic 68 05/09/22 23:04 Arterial Mean 91 05/09/22 23:04 Intake & Output 05/09/22 05/09/22 05/10/22 11:59 23:59 11:59 Intake Total 678.558 / 1543.661 865.103 / 1543.661 Output Total 2375 / 3925 1550 / 3925 Balance -1696.442 / -2381.339 -684.897 / -2381.339 Weight 114.1 kg Intake: IV 308.558 / 1173.661 865.103 / 1173.661 Oral 370 / 370 Output: Urine 2375 / 3925 1550 / 3925 Other: Urine Color Yellow Light Lorraine Urine Appearance Clear Clear Urine Odor Normal Comment voids in urinal voids in urinal Stool Occult Blood Negative Stool Size Moderate Stool Characteristics Soft Voiding Methods Bedside Commode Urinal Data Completed and Pending Pending studies at discharge: Fungal evaluation status post bronchoscopy with Labs on day of discharge: Labs from last 24 hours 05/10/22 05/10/22 05/09/22 05:35 05:35 19:50 WBC Pending RBC Pending Hgb Pending Hct Pending MCV Pending MCH Pending MCHC Pending RDW Pending Plt Count Pending MPV Pending Immature Gran % Pending Neutrophils % Pending Lymphocytes % Pending Monocytes % Pending Eosinophils % Pending Basophils % Pending Nucleated RBC % Absolute Neutrophils Pending Absolute Lymphocytes Pending Absolute Monocytes Pending Absolute Eosinophils Pending Absolute Basophils Pending ABG Sample Site Right Radial ABG pH 7.24 L ABG pCO2 52 H ABG pO2 81 ABG HCO3 23 ABG Total CO2 21 L ABG O2 Saturation 96 ABG Base Excess -5 L FiO2 80 Sodium Pending Potassium Pending Chloride Pending Carbon Dioxide Pending Anion Gap Pending BUN Pending Creatinine Pending Estimated GFR/1.73 m2 Pending Glucose Pending Calcium Pending Total Bilirubin Pending AST Pending ALT Pending Alkaline Phosphatase Pending Total Protein Pending Albumin Pending Gram Stain Aerobic Culture Ref Test Specimen Type Ref Report Verification 05/09/22 05/09/22 05/07/22 05:19 05:19 12:35 WBC 14.43 H RBC 4.51 Hgb 13.1 L Hct 40.2 MCV 89 MCH 29.0 MCHC 32.6 RDW 14.2 H Plt Count 330 MPV 8.6 Immature Gran % 1.4 Neutrophils % 85.0 Lymphocytes % 3.0 Monocytes % 9.0 Eosinophils % 1.0 Basophils % 0.6 Nucleated RBC % 0.0 Absolute Neutrophils 12.27 H Absolute Lymphocytes 0.43 L Absolute Monocytes 1.30 H Absolute Eosinophils 0.14 Absolute Basophils 0.09 ABG Sample Site ABG pH ABG pCO2 ABG pO2 ABG HCO3 ABG Total CO2 ABG O2 Saturation ABG Base Excess FiO2 Sodium 131 L Potassium 4.7 Chloride 97 L Carbon Dioxide 21.4 Anion Gap 12.6 H BUN 25 H Creatinine 1.0 Estimated GFR/1.73 m2 >= 60.00 Glucose 179 H Calcium 7.8 L Total Bilirubin 1.0 AST 34 ALT 31 Alkaline Phosphatase 70 Total Protein 5.5 L Albumin 1.6 L Gram Stain Neutrophils Present Aerobic Culture No Growth Ref Test Specimen Type Not Applicable Ref Report Verification Not Applicable 05/07/22 12:35 WBC RBC Hgb Hct MCV MCH MCHC RDW Plt Count MPV Immature Gran % Neutrophils % Lymphocytes % Monocytes % Eosinophils % Basophils % Nucleated RBC % Absolute Neutrophils Absolute Lymphocytes Absolute Monocytes Absolute Eosinophils Absolute Basophils ABG Sample Site ABG pH ABG pCO2 ABG pO2 ABG HCO3 ABG Total CO2 ABG O2 Saturation ABG Base Excess FiO2 Sodium Potassium Chloride Carbon Dioxide Anion Gap BUN Creatinine Estimated GFR/1.73 m2 Glucose Calcium Total Bilirubin AST ALT Alkaline Phosphatase Total Protein Albumin Gram Stain Neutrophils Present Aerobic Culture No Growth Ref Test Specimen Type Not Applicable Ref Report Verification Not Applicable Imaging CT scan - chest: Radiologist's impression: Date of Exam: 05/04/2022 Exam(s) CT CHEST WO EXAM:? CT CHEST WO CLINICAL HISTORY: ? pneumonia, persistent fever. ? TECHNIQUE:? Imaging protocol: Axial computed tomography images were obtained and coronal and sagittal reformatted images were created and reviewed. COMPARISON:? CR,XR XR PORTABLE CHEST AP from 05/02/2022 FINDINGS: Tracheobronchial tree: Patent where visualized. Pulmonary parenchyma: Multiple pulmonary nodules are present in both lungs.? The largest on the right measures 3 x 2.3 cm.? The largest discrete nodule on the left is seen in the lower lobe and measures 1.4 x 1.9 cm.? There is confluent opacity in the left upper lobe with air bronchograms.? A superimposed pneumonia should be considered.? An underlying neoplastic process is suspected.? No architectural distortion. Mediastinum and Ema: Enlarged lymph nodes are seen in the mediastinum.? Some of the lymph loads are calcified suggesting prior granulomatous disease.? The largest lymph node measures 2.0 x 1.9 cm.? The esophagus is unremarkable. Thyroid gland: Unremarkable. Pleura: There is a small left pleural effusion.? No right pleural effusion or pneumothorax is present.? Heart: Mildly enlarged heart.? Coronary artery calcifications are present.? No pericardial effusion. Aorta: Thoracic aorta non-dilated. Mild atherosclerosis. Upper abdomen:? Splenomegaly. ? Lymph nodes: No significant axillary or supraclavicular adenopathy.? Soft tissues: Unremarkable. Bones:Within normal limits for the patient's age.? There are old healed bilateral rib fractures.? No suspicious lytic or sclerotic lesions are present.? There is an old T12 compression deformity. IMPRESSION: 1. Multiple noncalcified pulmonary nodules.? Large opacity involving the left upper lobe with air bronchograms.? With pulmonary nodules, metastatic disease to the lungs is of primary concern.? The left upper lobe opacity may reflect a superimposed pneumonia.? A mass or more pulmonary nodules in the left upper lobe cannot be excluded underlying the pneumonia. 2. Left pleural effusion. 3. Mediastinal adenopathy which may be reactive or metastatic. 4. Mild cardiomegaly. 5. Splenomegaly.? Exam: XR Chest Exam date and time: 05/09/2022 9:28 PM Age: 57 years old Clinical indication: Device placement; Ett placement (vent status) TECHNIQUE: Imaging protocol: Radiologic exam of the chest. Views: 1 view. COMPARISON: XR PORTABLE CHEST AP 05/08/2022 5:39 PM FINDINGS: Tubes, catheters and devices: Endotracheal tube tip is 4.7 cm superior to the teryr. Enteric tube overlies the esophagus and stomach, tip below the field of view. Monitoring wires noted. Left arm PICC in place, tip mid superior vena cava. Lungs: Left hemithorax is densely opacified, increased from earlier exams. Moderate patchy airspace opacity continues to progress in the right lung. Pleural spaces: Unremarkable. No pleural effusion. No pneumothorax. Heart/Mediastinum: Cardiac borders are obscured. Bones/joints: Unremarkable. IMPRESSION: 1. Endotracheal tube appropriate in position. 2. Progressive multifocal pneumonia and/or edema. 3. Large left pleural effusion suspected. Lab and Radiology Reports: Laboratory Results WBC 14.43 10^3/uL (4.4-10.8) H 05/09/22 05:19 RBC 4.51 10^6/uL (4.36-5.78) 05/09/22 05:19 Hgb 13.1 g/dL (13.5-17.5) L 05/09/22 05:19 Hct 40.2 % (40.0-50.0) 05/09/22 05:19 MCV 89 fL (80-95) 05/09/22 05:19 MCH 29.0 pg (27.0-33.0) 05/09/22 05:19 MCHC 32.6 % (32.0-36.0) 05/09/22 05:19 RDW 14.2 % (11.8-14.1) H 05/09/22 05:19 Plt Count 330 10^3/uL (130-400) 05/09/22 05:19 MPV 8.6 fL (8.0-11.0) 05/09/22 05:19 Immature Gran % 1.4 05/09/22 05:19 Neutrophils % 85.0 05/09/22 05:19 Lymphocytes % 3.0 05/09/22 05:19 Monocytes % 9.0 05/09/22 05:19 Eosinophils % 1.0 05/09/22 05:19 Basophils % 0.6 05/09/22 05:19 Nucleated RBC % 0.0 % (0.0-0.3) 05/09/22 05:19 Absolute Neutrophils 12.27 10^3/uL (1.2-6.7) H 05/09/22 05:19 Absolute Lymphocytes 0.43 10^3/uL (1.2-3.4) L 05/09/22 05:19 Absolute Monocytes 1.30 10^3/uL (0.1-0.8) H 05/09/22 05:19 Absolute Eosinophils 0.14 10^3/uL (0.0-0.7) 05/09/22 05:19 Absolute Basophils 0.09 10^3/uL (0.0-0.2) 05/09/22 05:19 RBC Morphology Normal 05/08/22 04:56 PT 10.9 sec (9.3-11.0) 05/07/22 06:25 INR 1.1 (0.9-1.1) 05/07/22 06:25 ABG Sample Site Right Radial 05/09/22 19:50 ABG pH 7.24 (7.35-7.45) L 05/09/22 19:50 ABG pCO2 52 mmHg (35-45) H 05/09/22 19:50 ABG pO2 81 mmHg (80-105) 05/09/22 19:50 ABG HCO3 23 mmol/L (22-26) 05/09/22 19:50 ABG Total CO2 21 mmol/L (23-27) L 05/09/22 19:50 ABG O2 Saturation 96 % (95-98) 05/09/22 19:50 ABG Base Excess -5 mmol/L (-2-3) L 05/09/22 19:50 VBG pH 7.43 (7.31-7.41) H 05/02/22 21:30 VBG pCO2 39 mmHg (41-51) L 05/02/22 21:30 VBG pO2 42 mmHg 05/02/22 21:30 VBG HCO3 26 mmol/L (23-28) 05/02/22 21:30 VBG Total CO2 23 mmol/L (24-29) L 05/02/22 21:30 VBG O2 Saturation 79 % 05/02/22 21:30 VBG Base Excess 2 mmol/L (-2-3) 05/02/22 21:30 VBG Lactate 1.2 mmol/L (0.6-1.4) 05/02/22 21:30 FiO2 80 % 05/09/22 19:50 Sodium 131 mmol/L (136-145) L 05/09/22 05:19 Potassium 4.7 mmol/L (3.5-5.1) 05/09/22 05:19 Chloride 97 mmol/L (98-107) L 05/09/22 05:19 Carbon Dioxide 21.4 mmol/L (21.0-32.0) 05/09/22 05:19 Anion Gap 12.6 mmol/L (3-11) H 05/09/22 05:19 BUN 25 mg/dL (7-18) H 05/09/22 05:19 Creatinine 1.0 mg/dL (0.70-1.30) 05/09/22 05:19 Estimated GFR/1.73 m2 >= 60.00 (mL/min/1.73m2) 05/09/22 05:19 Glucose 179 mg/dL (74-106) H 05/09/22 05:19 Hemoglobin A1c 7.0 % (<5.7) H 05/06/22 07:58 Calcium 7.8 mg/dL (8.5-10.1) L 05/09/22 05:19 Phosphorus 2.6 mg/dL (2.6-4.7) 05/07/22 06:25 Magnesium 2.2 mg/dL (1.8-2.4) 05/08/22 04:56 Iron 11 ug/dL (65-175) L 05/06/22 07:58 TIBC 122 ug/dL (250-450) L 05/06/22 07:58 Transferrin % Sat 9 % (20-55) L 05/06/22 07:58 Ferritin 746 ng/mL (26-388) H 05/06/22 07:58 Total Bilirubin 1.0 mg/dL (0.2-1.0) 05/09/22 05:19 Conjugated Bilirubin 0.5 mg/dL (0.0-0.2) H 05/07/22 06:25 AST 34 U/L (15-37) 05/09/22 05:19 ALT 31 U/L (16-63) 05/09/22 05:19 Alkaline Phosphatase 70 U/L (46-116) 05/09/22 05:19 C-Reactive Protein > 25.00 mg/dL (0.0-0.3) H 05/08/22 04:56 Total Protein 5.5 g/dL (6.4-8.2) L 05/09/22 05:19 Albumin 1.6 g/dL (3.4-5.0) L 05/09/22 05:19 Angiotensin Convert Enz 21 U/L (16 - 85) 05/03/22 00:00 Vitamin B12 1086 pg/mL (193-986) H 05/06/22 07:58 Folate 6.7 ng/mL (8.6-20.0) L 05/06/22 07:58 Procalcitonin 0.6 ng/mL 05/08/22 04:56 Urine Color Yellow (Yellow) 05/03/22 09:00 Urine Clarity Clear (Clear) 05/03/22 09:00 Urine pH 5.5 (5-8) 05/03/22 09:00 Ur Specific Sherburn 1.015 (1.005-1.025) 05/03/22 09:00 Urine Protein Negative mg/dL (Negative) 05/03/22 09:00 Urine Ketones Trace mg/dL (Negative) H 05/03/22 09:00 Urine Blood Negative (Negative) 05/03/22 09:00 Urine Nitrite Negative (Negative) 05/03/22 09:00 Urine Bilirubin Negative (Negative) 05/03/22 09:00 Urine Urobilinogen 2.0 EU/dL (Up TO 0.2) H 05/03/22 09:00 Ur Leukocyte Esterase Negative (Negative) 05/03/22 09:00 Urine Glucose 500 mg/dL (Negative) H 05/03/22 09:00 Fluid Type Cancelled 05/08/22 Unknown Fluid Tot Bilirubin Cancelled 05/08/22 Unknown Rheumatoid Factor 12.9 IU/mL (<12.0) H 05/07/22 10:10 Cyclic Citrull Peptide <2.5 U/mL (<5.0) 05/07/22 10:10 BEBO Titer Not Applicable 05/07/22 10:10 BEBO Titer 2 Not Applicable 05/07/22 10:10 BEBO Titer 3 Not Applicable 05/07/22 10:10 BEBO Interpretation Negative (Negative) 05/07/22 10:10 ANCA Immunofluorescen Negative (Negative) 05/07/22 10:10 ANCA Titer Not Applicable 05/07/22 10:10 ANCA Pattern Not Applicable 05/07/22 10:10 Gram Stain Neutrophils Present 05/07/22 12:35 Gram Stain Neutrophils Present 05/07/22 12:35 A.phagocytophil DNA PCR Negative (Negative) 05/03/22 08:18 B. divergens/MO-1 PCR Negative (Negative) 05/03/22 08:18 Babesia duncani (PCR) Negative (Negative) 05/03/22 08:18 Babesia microti DNA PCR Negative (Negative) 05/03/22 08:18 Borrelia (PCR) Negative (Negative) 05/03/22 08:18 Lyme Disease Antibody Negative (Negative) 05/03/22 08:18 COVID-19 Source Nasal/Nares 05/06/22 08:25 SARS-CoV-2 (PCR) Negative (Negative) 05/06/22 08:25 E.chaffeensis DNA (PCR) Negative (Negative) 05/03/22 08:18 E.ewingii/canis DNA PCR Negative (Negative) 05/03/22 08:18 E. muris-like DNA (PCR) Negative (Negative) 05/03/22 08:18 HIV 1&2 Ag/Ab, 4th Gen Negative (Negative) 05/04/22 13:00 Influenza Type A (PCR) Negative (Negative) 05/02/22 21:35 Influenza Type B (PCR) Negative (Negative) 05/02/22 21:35 Urine Legionella Ag Negative (Negative) 05/03/22 09:00 RSV (PCR) Negative (Negative) 05/02/22 21:35 Ur Strep pneumoniae Ag Negative (Negative) 05/03/22 09:00 Aerobic Culture No Growth 05/07/22 12:35 Aerobic Culture No Growth 05/07/22 12:35 B-(1,3)-D-Glucan Quant <31 pg/mL (<60 pg/mL) 05/04/22 13:10 B-(1,3)-D-Glucan Qual Negative (Negative) 05/04/22 13:10 Add-On Test Request DONE 05/07/22 06:25 Ref Test Specimen Type Not Applicable 05/07/22 12:35 Ref Test Specimen Type Not Applicable 05/07/22 12:35 Ref Report Verification Not Applicable 05/07/22 12:35 Ref Report Verification Not Applicable 05/07/22 12:35 Additional Comments Additional comments: Transfer to [facility] ICU, Dr. Veronica's service, [facility] transfer with ACLS protocol intubated with mechanical ventilation. PFSH All Active Problems Delirium (Acute) Respiratory failure with hypoxia (Acute) Diabetes (Chronic) Leukocytosis (Acute) Blastomycosis (Acute) Chest wall pain (Acute) Fungal pneumonia (Acute) Hyponatremia (Acute) Hyperbilirubinemia (Acute) Acute anemia (Acute) Discharge planning issues (Acute) Sepsis (Acute) DVT prophylaxis (Acute) Hyperlipidemia (Acute) Essential hypertension (Acute) Diabetes mellitus type 2, noninsulin dependent (Chronic) CAP (community acquired pneumonia) (Acute) Hypoxia (Acute) Social History Smoking/Tobacco Use Status: Never Smoking risk assessment performed?: Yes Alcohol Intake: never Drug use: Never Substance use type: does not use
[2022-05-10] MEDS: PROPOFOL 1,000 MG/100 ML BTL 17.115 MG IVPB (00:38)
--- NOTE | 2022-05-10 03:43 | NUR.NOTE ---
pt transferred via ambulance to [facility] with ACLS crew. Pt intubated on vent wit A line and OG.
--- NOTE | 2022-05-10 08:33 | PDOC.CMDIS ---
- If Service Date Differs Date of service: 05/10/22 Time of Service: 08:33 LACE Index Scoring Tool - Questions: Length of Stay (in days): 7 - 13 Acuity (Admit via E.D.?): Yes E.D. Visits: 1 - Answers: Total Score: 9 Risk of Readmission: Low Risk Care Management Discharge Reason for Hospitalization: Pneumonia Discharge Plan: Deidre transferred to [facility] [facility] via EMS. Patient/Family Education Needs: Review transfer instructions. ask me three. Services Needed at Discharge: Transportation (EMS, arranged by nursing split and drum room supervisor.)
[2022-05-10 12:58] LABS: M. pneumoniae Ab, IgG Positive (Negative); M. pneumoniae Ab, IgM Negative (Negative)
[2022-05-11 16:28] LABS: Mycoplasma Pneumoniae PCR Negative; Specimen source sputum
[2022-05-14 12:25] LABS: Lymphocytes Fluid Relative 37 %; Mono/Macrophage Fluid Relative 5 %; Neutrophils Fluid Relative 57 %
[2022-05-14 12:26] LABS: Eosinophils Fluid Relative 1 %
[2022-05-21 14:16] LABS: Misc Referral (MAYO) See Comments
== END 2022-05-10 02:20 | disposition short-term general hospital (02) | DRG 871 ==
LOC: ER 23:29 → MS 23:33 → ICU 05-08 19:41
PROVIDERS: Family Medicine; Internal Medicine; Student in an Organized Health Care Education/Training Program; Admitting Provider Family Medicine; Emergency Provider Emergency Medicine; PCP Internal Medicine; Visit Provider Family Medicine
PROC: 0BJ08ZZ Inspection of Tracheobronchial Tree, Via Natural or Artificial Opening Endoscopic (ICD-10-PCS; CPT 31622; principal; 2022-05-07 12:00)
DX: A41.9 Sepsis, unspecified organism (principal); J96.01 Acute respiratory failure with hypoxia; B40.0 Acute pulmonary blastomycosis; F05 Delirium due to known physiological condition; E11.9 Type 2 diabetes mellitus without complications; E78.5 Hyperlipidemia, unspecified; I10 Essential (primary) hypertension; Z79.84 Long term (current) use of oral hypoglycemic drugs; D64.9 Anemia, unspecified; E80.6 Other disorders of bilirubin metabolism; E87.1 Hypo-osmolality and hyponatremia; E87.6 Hypokalemia; D72.810 Lymphocytopenia; D72.829 Elevated white blood cell count, unspecified
CPT/HCPCS: 31624; 36410; 36415; 36569; 71250; 80048; 80053; 80076; 80162; 82164; 82805; 84145; 86200; 86255; 87040; 87070; 87081; 87102; 87107; 87116; 87205; 87206; 87389; 87449; 87635; 87637; 87798; 96361; 96365; 99284; 99285; J1650; 70450; 71045; 81003; 82150; 82607; 82728; 82746; 83036; 83520; 83540; 83550; 83605; 83735; 84100; 85014; 85018; 85025; 85610; 86038; 86140; 86431; 86618; 86738; 87581; 87899; 88104; 93306; 94640; 94667; 94668; 94760; 99223; 99232; 99233; 99239; 99291; J0131; J0289; J1100; J1885; J1941; J2020; J2405; J2543; J3480; J3490; J7613; J7614

== ENCOUNTER 2024-11-09 16:46 | Outpatient (CLI) | payer OTHER, SELFPAY ==
[2024-11-09 16:34] LABS: Abs Immature Grans 0.02 10^3/uL (0.0-0.06); Absolute Basophil Count 0.03 10^3/uL (0.0-0.2); Absolute Eosinophil Count 0.26 10^3/uL (0.0-0.7); Absolute Lymphocyte Count 0.53 10^3/uL (1.2-3.4); Absolute Monocyte Count 0.48 10^3/uL (0.1-0.8); Absolute Neutrophil Count 3.38 10^3/uL (1.2-6.7); Basophils % 0.6 %; Eosinophils % 5.5 %; HCT 36.4 % (40.0-50.0); HGB 12.6 g/dL (13.5-17.5); Immature Grans % 0.4 %; Lymphocytes % 11.3 %; MCH 31.5 pg (27.0-33.0); MCHC 34.6 % (32.0-36.0); MCV 91 fL (80-95); MPV 9.2 fL (8.0-11.0); Monocytes % 10.2 %; Platelet Count 100 10^3/uL (130-400); RDW 13.8 % (11.8-14.1); RDW-SD 45.3 fL
[2024-11-09 16:58] LABS: ALT 25 U/L (16-63); AST 14 U/L (15-37); Albumin 3.6 g/dL (3.4-5.0); Alkaline Phosphatase 77 U/L (46-116); Anion Gap 4.1 mmol/L (3-11); BUN 21 mg/dL (7-18); Bilirubin, Total 1.23 mg/dL (0.2-1.0); CO2 32.9 mmol/L (21.0-32.0); CREATININE 1.4 mg/dL (0.70-1.30); Calcium 9.2 mg/dL (8.5-10.1); Chloride 102 mmol/L (98-107); Estimated GFR 58.26 (mL/min/1.73m2); FREE T4 0.92 ng/dL (0.76-1.46); Glucose 216 mg/dL (74-106); Potassium 4.1 mmol/L (3.5-5.1); Sodium 139 mmol/L (136-145); Total Protein 6.6 g/dL (6.4-8.2)
== END 2024-11-09 16:47 | disposition home or self-care (01) ==
LOC: LBO 16:54
PROVIDERS: PCP Internal Medicine; Visit Provider Internal Medicine Hematology
DX: C44.320 Squamous cell carcinoma of skin of unspecified parts of face (principal)
CPT/HCPCS: 36415; 80053; 84439; 84443; 85025

== ENCOUNTER 2024-12-07 01:59 | Outpatient (CLI) | payer OTHER, SELFPAY ==
[2024-12-07 09:09] LABS: Abs Immature Grans 0.02 10^3/uL (0.0-0.06); Absolute Basophil Count 0.03 10^3/uL (0.0-0.2); Absolute Eosinophil Count 0.28 10^3/uL (0.0-0.7); Absolute Lymphocyte Count 0.65 10^3/uL (1.2-3.4); Absolute Monocyte Count 0.54 10^3/uL (0.1-0.8); Absolute Neutrophil Count 3.67 10^3/uL (1.2-6.7); Basophils % 0.6 %; Eosinophils % 5.4 %; HGB 12.7 g/dL (13.5-17.5); Immature Grans % 0.4 %; Lymphocytes % 12.5 %; MCH 30.7 pg (27.0-33.0); MCHC 34.3 % (32.0-36.0); MCV 89 fL (80-95); MPV 8.8 fL (8.0-11.0); Monocytes % 10.4 %; Neutrophils % 70.7 %; Platelet Count 105 10^3/uL (130-400); RBC 4.14 10^6/uL (4.36-5.78); RDW 13.8 % (11.8-14.1); RDW-SD 44.3 fL; WBC 5.19 10^3/uL (4.4-10.8)
[2024-12-07 09:46] LABS: ALT 27 U/L (16-63); AST 19 U/L (15-37); Albumin 3.8 g/dL (3.4-5.0); Alkaline Phosphatase 91 U/L (46-116); BUN 25 mg/dL (7-18); Bilirubin, Total 1.28 mg/dL (0.2-1.0); CREATININE 1.3 mg/dL (0.70-1.30); Chloride 101 mmol/L (98-107); Estimated GFR 63.68 (mL/min/1.73m2); FREE T4 1.17 ng/dL (0.76-1.46); Glucose 241 mg/dL (74-106); Sodium 138 mmol/L (136-145); TSH 1.02 uIU/mL (0.36-3.74); Total Protein 6.8 g/dL (6.4-8.2)
[2024-12-07 09:53] LABS: Calcium 9.6 mg/dL (8.5-10.1)
== END 2024-12-07 02:00 | disposition home or self-care (01) ==
PROVIDERS: PCP Internal Medicine; Visit Provider Internal Medicine Hematology
DX: C44.320 Squamous cell carcinoma of skin of unspecified parts of face (principal)
CPT/HCPCS: 36415; 80053; 84439; 84443; 85025

== ENCOUNTER 2024-12-28 04:21 | Outpatient (CLI) | payer OTHER, SELFPAY ==
[2024-12-28 10:27] LABS: Abs Immature Grans 0.03 10^3/uL (0.0-0.06); Absolute Basophil Count 0.03 10^3/uL (0.0-0.2); Absolute Eosinophil Count 0.31 10^3/uL (0.0-0.7); Absolute Lymphocyte Count 0.66 10^3/uL (1.2-3.4); Absolute Monocyte Count 0.58 10^3/uL (0.1-0.8); Absolute Neutrophil Count 3.87 10^3/uL (1.2-6.7); Basophils % 0.5 %; Eosinophils % 5.7 %; HCT 38.7 % (40.0-50.0); HGB 13.8 g/dL (13.5-17.5); Immature Grans % 0.5 %; MCH 30.5 pg (27.0-33.0); MCHC 35.7 % (32.0-36.0); MCV 86 fL (80-95); MPV 9.6 fL (8.0-11.0); Monocytes % 10.6 %; Neutrophils % 70.7 %; Platelet Count 103 10^3/uL (130-400); RBC 4.52 10^6/uL (4.36-5.78); RDW 12.9 % (11.8-14.1); WBC 5.48 10^3/uL (4.4-10.8)
[2024-12-28 10:52] LABS: ALT 23 U/L (16-63); AST 16 U/L (15-37); Albumin 4.1 g/dL (3.4-5.0); Alkaline Phosphatase 87 U/L (46-116); Anion Gap 7.4 mmol/L (3-11); BUN 28 mg/dL (7-18); Bilirubin, Total 1.2 mg/dL (0.2-1.0); CO2 30.6 mmol/L (21.0-32.0); CREATININE 1.3 mg/dL (0.70-1.30); Calcium 9.6 mg/dL (8.5-10.1); Chloride 100 mmol/L (98-107); Estimated GFR 63.68 (mL/min/1.73m2); Glucose 288 mg/dL (74-106); Potassium 4.4 mmol/L (3.5-5.1); Sodium 138 mmol/L (136-145); Total Protein 7.2 g/dL (6.4-8.2)
[2024-12-28 18:31] LABS: T4, Free 1.1 ng/dL (0.8-2.2)
== END 2024-12-28 04:22 | disposition home or self-care (01) ==
LOC: LBO 04:21
PROVIDERS: PCP Internal Medicine; Visit Provider Internal Medicine Hematology
DX: C44.320 Squamous cell carcinoma of skin of unspecified parts of face (principal)
CPT/HCPCS: 36415; 80053; 84439; 84443; 85025

== ENCOUNTER 2025-01-18 01:42 | Outpatient (CLI) | payer OTHER, SELFPAY ==
[2025-01-18 12:27] LABS: Abs Immature Grans 0.01 10^3/uL (0.0-0.06); Absolute Basophil Count 0.02 10^3/uL (0.0-0.2); Absolute Eosinophil Count 0.25 10^3/uL (0.0-0.7); Absolute Lymphocyte Count 0.77 10^3/uL (1.2-3.4); Absolute Monocyte Count 0.61 10^3/uL (0.1-0.8); Absolute Neutrophil Count 3.41 10^3/uL (1.2-6.7); Basophils % 0.4 %; Eosinophils % 4.9 %; HCT 40.3 % (40.0-50.0); HGB 13.9 g/dL (13.5-17.5); Immature Grans % 0.2 %; Lymphocytes % 15.2 %; MCH 29.6 pg (27.0-33.0); MCHC 34.5 % (32.0-36.0); MCV 86 fL (80-95); MPV 9.2 fL (8.0-11.0); Neutrophils % 67.3 %; Platelet Count 115 10^3/uL (130-400); RDW 13.5 % (11.8-14.1); RDW-SD 41.7 fL; WBC 5.07 10^3/uL (4.4-10.8)
[2025-01-18 12:50] LABS: ALT 29 U/L (16-63); AST 18 U/L (15-37); Albumin 4.2 g/dL (3.4-5.0); Alkaline Phosphatase 80 U/L (46-116); Anion Gap 7.7 mmol/L (3-11); BUN 24 mg/dL (7-18); Bilirubin, Total 1.7 mg/dL (0.2-1.0); CO2 33.3 mmol/L (21.0-32.0); CREATININE 1.2 mg/dL (0.70-1.30); Calcium 10.3 mg/dL (8.5-10.1); Chloride 100 mmol/L (98-107); FREE T4 1.24 ng/dL (0.76-1.46); Glucose 246 mg/dL (74-106); Potassium 4.1 mmol/L (3.5-5.1); Sodium 141 mmol/L (136-145); TSH 0.77 uIU/mL (0.36-3.74); Total Protein 7.2 g/dL (6.4-8.2)
== END 2025-01-18 01:43 | disposition home or self-care (01) ==
LOC: LBO 01:42
PROVIDERS: PCP Internal Medicine; Visit Provider Internal Medicine Hematology
DX: C44.320 Squamous cell carcinoma of skin of unspecified parts of face (principal)
CPT/HCPCS: 36415; 80053; 84439; 84443; 85025

== ENCOUNTER 2025-02-08 03:33 | Outpatient (CLI) | payer OTHER, SELFPAY ==
[2025-02-08 11:07] LABS: Abs Immature Grans 0.02 10^3/uL (0.0-0.06); Absolute Basophil Count 0.01 10^3/uL (0.0-0.2); Absolute Eosinophil Count 0.22 10^3/uL (0.0-0.7); Absolute Lymphocyte Count 0.53 10^3/uL (1.2-3.4); Absolute Neutrophil Count 3.18 10^3/uL (1.2-6.7); Basophils % 0.2 %; HCT 37.8 % (40.0-50.0); HGB 12.9 g/dL (13.5-17.5); Immature Grans % 0.5 %; Lymphocytes % 12.2 %; MCH 29.5 pg (27.0-33.0); MCHC 34.1 % (32.0-36.0); MCV 87 fL (80-95); Monocytes % 9.2 %; Neutrophils % 72.9 %; Platelet Count 115 10^3/uL (130-400); RBC 4.37 10^6/uL (4.36-5.78); RDW 13.9 % (11.8-14.1); RDW-SD 43.2 fL; WBC 4.36 10^3/uL (4.4-10.8)
[2025-02-08 11:34] LABS: ALT 27 U/L (16-63); AST 18 U/L (15-37); Albumin 4.1 g/dL (3.4-5.0); Alkaline Phosphatase 75 U/L (46-116); Anion Gap 6.7 mmol/L (3-11); BUN 17 mg/dL (7-18); Bilirubin, Total 1.1 mg/dL (0.2-1.0); CO2 29.3 mmol/L (21.0-32.0); CREATININE 1.3 mg/dL (0.70-1.30); Calcium 9.4 mg/dL (8.5-10.1); Chloride 105 mmol/L (98-107); Estimated GFR 63.68 (mL/min/1.73m2); FREE T4 1.01 ng/dL (0.76-1.46); Glucose 199 mg/dL (74-106); Potassium 4.1 mmol/L (3.5-5.1); Sodium 141 mmol/L (136-145); TSH 1.11 uIU/mL (0.36-3.74); Total Protein 6.9 g/dL (6.4-8.2)
== END 2025-02-08 03:34 | disposition home or self-care (01) ==
LOC: LBO 03:33
PROVIDERS: PCP Internal Medicine; Visit Provider Internal Medicine Hematology
DX: C44.320 Squamous cell carcinoma of skin of unspecified parts of face (principal)
CPT/HCPCS: 36415; 80053; 84439; 84443; 85025

== ENCOUNTER → 2025-08-30 02:22 | Outpatient (CLI) | payer OTHER, SELFPAY ==
--- NOTE | 2025-08-30 | DI.CT_ITS ---
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 COMPARISON: No exams were available for comparison TECHNIQUE: On the Lele 350-100 mL. FINDINGS: FACE: There is asymmetric skin and subcutaneous thickening over the anterior left suborbital cheek region. No evidence of abscess at this level nor enlarged subcutaneous lymph nodes. VISUALIZED PARANASAL SINUSES: There is mild mucosal thickening in the left maxillary sinus. No fluid level. Even lesser mucosal thickening in the right maxillary sinus, also without fluid level. Other paranasal sinuses are clear as are the mastoid air cells. NASOPHARYNX: Unremarkable ORODENTAL: Unremarkable. OROPHARYNX: Unremarkable. No masses evident. HYPOPHARYNX: Unremarkable. Valleculae and epiglottis and aryepiglottic folds appear normal. VOCAL CORDS: Unremarkable. No masses evident. Subglottic airway appears unremarkable. THYROID GLAND: Unremarkable. Normal size and no obvious nodules. SALIVARY GLANDS: There are surgical clips in the region of the left parotid gland which appears to have been partially resected. The left submandibular gland is also surgically absent. Right submandibular gland appears unremarkable. LYMPH NODES: There is no adenopathy evident in the neck and supraclavicular regions. OTHER: VISUALIZED LUNG APICES: There is significant infiltrate in the left upper lobe. Partially visualized right upper lobe is clear. IMPRESSION: 1. There has been previous left-sided surgery with resection of the left submandibular and majority of the left parotid gland. Right-sided parotid and submandibular glands appear unremarkable. 2. Left-sided facial thickening as described above but without evidence of subcutaneous abscess nor enlarged lymph nodes in left side of the face. 3. No lymphadenopathy evident in the neck and supraclavicular regions. 4. Significant infiltrate in the left lung upper lobe incidentally noted on the lower most images of this neck study. Visualized right upper lobe is clear. RADIATION DOSE DELIVERED: 406.31mGy.cm Total DLP DATA REPOSITORY: All CT scans at this facility are submitted to the National Radiology Data Registry (NRDR) Dose Index Registry (DIR) with the [employer] (A[employer]). RADIATION OPTIMIZATION: All CT scans at this facility use at least one of these dose optimization techniques: automated exposure control; mA and/or kV adjustment per patient size (includes targeted exams where dose is matched to clinical indication); or iterative reconstruction.
[2025-08-30 08:43] LABS: Abs Immature Grans 0.01 10^3/uL (0.0-0.06); HCT 34.3 % (40.0-50.0); HGB 11.9 g/dL (13.5-17.5); Immature Grans % 0.3 %; MCH 30.1 pg (27.0-33.0); MCHC 34.7 % (32.0-36.0); MCV 87 fL (80-95); MPV 9.1 fL (8.0-11.0); Platelet Count 118 10^3/uL (130-400); RBC 3.95 10^6/uL (4.36-5.78); RDW 13.5 % (11.8-14.1); RDW-SD 42.5 fL; WBC 3.83 10^3/uL (4.4-10.8)
[2025-08-30 09:05] LABS: ALT 20 U/L (16-63); AST 15 U/L (15-37); Albumin 3.4 g/dL (3.4-5.0); Alkaline Phosphatase 91 U/L (46-116); Anion Gap 7.8 mmol/L (3-11); BUN 18 mg/dL (7-18); Bilirubin, Total 1.0 mg/dL (0.2-1.0); CO2 28.2 mmol/L (21.0-32.0); Calcium 8.4 mg/dL (8.5-10.1); Chloride 104 mmol/L (98-107); Glucose 174 mg/dL (74-106); Potassium 4.0 mmol/L (3.5-5.1); Sodium 140 mmol/L (136-145); TSH 1.02 uIU/mL (0.36-3.74); Total Protein 6.6 g/dL (6.4-8.2)
[2025-08-30] MEDS: Omnipaque 350 MG/ML 100 ML BTL IJ (09:19)
[2025-08-30] MEDS: Normal Saline - Diluent 50 ML VIAL IJ (09:19)
[2025-08-30] MEDS: Normal Saline Flush 10 ML SYR IVP (09:20)
== END ==
LOC: DI 02:22
PROVIDERS: PCP Internal Medicine; Visit Provider Internal Medicine Hematology
DX: C44.329 Squamous cell carcinoma of skin of other parts of face (principal); Z98.890 Other specified postprocedural states
CPT/HCPCS: 70491; 80053; 84439; 84443; 85025; J3490